=== PATIENT | male | born 1940 | race Caucasian/White ===

== ENCOUNTER 2020-07-18 06:45 | Outpatient (REF) | payer MEDICARE, OTHER, SELFPAY ==
[2020-07-18 07:23] LABS: Mean Platelet Volume 10.9 fL (9.4-12.4)
[2020-07-18 07:25] LABS: Basophils Percent Auto 0.5 % (0-2); Eosinophils Absolute Auto 0.2 X10*3/uL (0.0-0.4); Eosinophils Percent Auto 3.5 % (0-4); Hematocrit 47.2 % (42-52); Imm Gran Abs Auto 0.01 X10*3/uL (0.00-0.03); Imm Gran Pct Auto 0.2 % (0.0-0.4); Lymphocytes Absolute Auto 1.3 X10*3/uL (1.2-4.9); Lymphocytes Percent Auto 19.7 % (20-40); Mean Corpuscular HGB Conc 33.9 g/dl (31.0-36.0); Mean Corpuscular Hemoglobin 32.3 pg (27.0-33.0); Mean Corpuscular Volume 95.4 fL (80-98); Monocytes Absolute Auto 0.5 X10*3/uL (0.1-1.2); Monocytes Percent Auto 7.3 % (2-11); Neutrophils Absolute Auto 4.4 X10*3/uL (2.0-8.3); Neutrophils Percent Auto 68.8 % (45-73); Platelet Count 130 X10*3/uL (160-400); Red Blood Count 4.95 X10*6/uL (4.60-5.80); Red Cell Distribution Width 12.2 % (11.0-16.0); White Blood Count 6.3 X10*3/uL (4.8-10.8)
[2020-07-18 07:26] LABS: MANUAL DIFF FLAG NO
[2020-07-18 07:50] LABS: Alanine Aminotransferase 25 U/L (0-40); Albumin Level 4.4 g/dL (3.5-5.0); Alkaline Phosphatase 62 U/L (39-117); Anion Gap 12 (12-20); Aspartate Amino Transferase 24 U/L (5-37); Bilirubin Total 2.2 mg/dL (0.0-1.0); Blood Urea Nitrogen 28 mg/dL (9-16); Calcium 9.3 mg/dL (8.4-10.2); Carbon Dioxide 28 mmol/L (22-29); Chloride 103 mmol/L (96-108); Cholesterol 131 mg/dL; Estimated Glomerular Filt Rate 48; Glucose Random 175 mg/dL (60-115); HDL Cholesterol 39 mg/dL; LDL Cholesterol Calculated 66 mg/dl; Potassium 4.5 mmol/L (3.3-5.1); Sodium 138 mmol/L (135-145); Total Protein 6.7 g/dL (6.5-8.0); Triglycerides 131 mg/dL
[2020-07-18 07:52] LABS: Anion Gap 13 (12-20); Blood Urea Nitrogen 27 mg/dL (9-16); Calcium 9.3 mg/dL (8.4-10.2); Carbon Dioxide 26 mmol/L (22-29); Chloride 104 mmol/L (96-108); Estimated Glomerular Filt Rate 48; Phosphorus 3.5 mg/dL (2.7-4.5); Potassium 4.3 mmol/L (3.3-5.1); Sodium 139 mmol/L (135-145)
[2020-07-18 08:13] LABS: Free T4 (Free Thyroxine) 0.99 ng/dL (0.71-1.85); Thyroid Stimulating Hormone 1.09 uIU/mL (0.32-4.0)
[2020-07-18 08:16] LABS: Estimated Average Glucose 171 mg/dL; Hemoglobin A1c % 7.6 %
[2020-07-18 08:37] LABS: Renal w Reflex Lab Use Only Order verified
[2020-07-18 09:24] LABS: Folate > 20.0 ng/mL (> or = 4.0); Vitamin B12 784 pg/mL (200-900)
[2020-07-18 11:06] LABS: Creatinine Urine 121.95 mg/dL; Microalbum/Creatinine Ratio Ur 4.9 ug/mg cr
== END 2020-07-18 06:46 | disposition home or self-care (01) ==
LOC: HO.LAB 06:45
PROVIDERS: Absent Provider Internal Medicine Nephrology; PCP Internal Medicine; Visit Provider Internal Medicine
DX: E11.65 Type 2 diabetes mellitus with hyperglycemia (principal); K21.9 Gastro-esophageal reflux disease without esophagitis; E78.00 Pure hypercholesterolemia, unspecified; I12.9 Hypertensive chronic kidney disease with stage 1 through stage 4 chronic kidney disease, or unspecified chronic kidney disease; N18.30 Chronic kidney disease, stage 3 unspecified
CPT/HCPCS: 36415; 80051; 80053; 80061; 82043; 82310; 82565; 82607; 82746; 83036; 84100; 84439; 84443; 84520; 85025

== ENCOUNTER 2020-10-17 08:05 | Outpatient (REF) | payer MEDICARE, OTHER, SELFPAY ==
[2020-10-17 12:17] LABS: Prostate Specific Antigen 0.49 ng/mL (<0.05-4.0)
[2020-10-18 06:21] LABS: Lyme Abs Screen <0.90 index
== END 2020-10-17 08:06 | disposition home or self-care (01) ==
LOC: HO.HMGCLDS 08:05
PROVIDERS: PCP Internal Medicine; Referring Provider Nurse Practitioner Family; Visit Provider Hospitalist
DX: Z12.5 Encounter for screening for malignant neoplasm of prostate (principal); T14.8XXA Other injury of unspecified body region, initial encounter; W57.XXXA Bitten or stung by nonvenomous insect and other nonvenomous arthropods, initial encounter
CPT/HCPCS: 36415; 84153; 86617; 86618

== ENCOUNTER 2021-01-19 15:18 | Outpatient (REF) | payer MEDICARE, OTHER, SELFPAY ==
[2021-01-19 16:19] LABS: Anion Gap 13 (12-20); Blood Urea Nitrogen 25 mg/dL (9-16); Calcium 9.8 mg/dL (8.4-10.2); Carbon Dioxide 27 mmol/L (22-29); Chloride 105 mmol/L (96-108); Estimated Glomerular Filt Rate 53; Potassium 4.8 mmol/L (3.3-5.1); Sodium 140 mmol/L (135-145)
[2021-01-19 16:48] LABS: Total Protein Urine Random < 7 mg/dL (<12)
== END 2021-01-19 15:19 | disposition home or self-care (01) ==
LOC: HO.LAB 15:18
PROVIDERS: PCP Internal Medicine; Visit Provider Internal Medicine Nephrology
DX: I12.9 Hypertensive chronic kidney disease with stage 1 through stage 4 chronic kidney disease, or unspecified chronic kidney disease (principal); N18.31 Chronic kidney disease, stage 3a
CPT/HCPCS: 36415; 80051; 82310; 82565; 84156; 84520

== ENCOUNTER 2021-04-25 09:23 | Outpatient (REF) | payer MEDICARE, OTHER, SELFPAY ==
--- NOTE | ~2021-04-25 | XR_ITS ---
EXAMINATION: XR CHEST CLINICAL INFORMATION: Cough COMPARISON: April 20, 2009 TECHNIQUE: 2 views of the chest were obtained. FINDINGS: There is no evidence of acute parenchymal disease, pneumothorax, or pleural effusion. Heart normal size. No evidence of pulmonary edema. There is some minor lingular scarring as well as prominent left pericardial fat pad. Endothoracic fat deposition is present. XR/XR chest 2V IMPRESSION: No acute disease.
== END 2021-04-25 09:24 | disposition home or self-care (01) ==
LOC: HO.HMGCX 09:23
PROVIDERS: PCP Internal Medicine; Visit Provider Internal Medicine
DX: R05.9 Cough, unspecified (principal)
CPT/HCPCS: 71046

== ENCOUNTER 2021-07-17 07:31 | Outpatient (REF) | payer MEDICARE, OTHER, SELFPAY ==
[2021-07-17 11:33] LABS: MANUAL DIFF FLAG NO
[2021-07-17 11:43] LABS: Basophils Percent Auto 0.6 % (0-2); Eosinophils Absolute Auto 0.2 X10*3/uL (0.0-0.4); Eosinophils Percent Auto 3.7 % (0-4); Hematocrit 49.8 % (42.0-52.0); Hemoglobin 16.5 g/dl (14.0-18.0); Imm Gran Abs Auto 0.01 X10*3/uL (0.00-0.03); Imm Gran Pct Auto 0.2 % (0.0-0.4); Lymphocytes Absolute Auto 1.3 X10*3/uL (1.2-4.9); Lymphocytes Percent Auto 20.3 % (20-40); Mean Corpuscular HGB Conc 33.1 g/dl (31.0-36.0); Mean Corpuscular Volume 96.7 fL (80.0-98.0); Mean Platelet Volume 11.8 fL (9.4-12.4); Monocytes Absolute Auto 0.5 X10*3/uL (0.1-1.2); Monocytes Percent Auto 7.6 % (2-11); Neutrophils Absolute Auto 4.2 x10*3/uL (2.0-8.3); Neutrophils Percent Auto 67.6 % (45-73); Platelet Count 121 X10*3/uL (160-400); Red Blood Count 5.15 X10*6/uL (4.60-5.80); Red Cell Distribution Width 12.4 % (11.0-16.0); White Blood Count 6.2 X10*3/uL (4.8-10.8)
[2021-07-17 11:57] LABS: Cholesterol 130 mg/dL; HDL Cholesterol 36 mg/dL; LDL Cholesterol Calculated 64 mg/dl; Triglycerides 154 mg/dL
[2021-07-17 12:15] LABS: Estimated Average Glucose 163 mg/dL; Hemoglobin A1c % 7.3 %
[2021-07-17 12:21] LABS: Creatinine Urine 122.09 mg/dL; Free T4 (Free Thyroxine) 0.94 ng/dL (0.71-1.85); Microalbum/Creatinine Ratio Ur 23.7 ug/mg cr; Thyroid Stimulating Hormone 1.51 uIU/mL (0.32-4.0); Vitamin D 25-OH Total 29.2 ng/mL (>30)
[2021-07-17 12:26] LABS: Folate 19.1 ng/mL (> or = 4.0); Vitamin B12 606 pg/mL (200-900)
== END 2021-07-17 07:32 | disposition home or self-care (01) ==
LOC: HO.HMGCLDS 07:31
PROVIDERS: Visit Provider Internal Medicine
DX: E11.65 Type 2 diabetes mellitus with hyperglycemia (principal); N18.31 Chronic kidney disease, stage 3a; E78.00 Pure hypercholesterolemia, unspecified; I25.10 Atherosclerotic heart disease of native coronary artery without angina pectoris
CPT/HCPCS: 36415; 80061; 82043; 82306; 82607; 82746; 83036; 84439; 84443; 85025

== ENCOUNTER 2021-07-26 11:14 | Outpatient (REF) | payer MEDICARE, OTHER, SELFPAY ==
--- NOTE | ~2021-07-26 | XR_ITS ---
EXAMINATION: XR CHEST CLINICAL INFORMATION: History of Covid infection. Chest pain. COMPARISON: Previous chest x-ray April 2021 TECHNIQUE: 2 views of the chest were obtained. FINDINGS: The cardiac silhouette is slightly enlarged but stable. Hilar and mediastinal contours are unremarkable. The lungs are clear. There is no pleural effusion. There are degenerative changes of the spine. XR/XR chest 2V IMPRESSION: No evidence for acute disease in the chest.
== END 2021-07-26 11:15 | disposition home or self-care (01) ==
LOC: HO.XRAY 11:14
PROVIDERS: PCP Internal Medicine; Visit Provider Internal Medicine
DX: R07.9 Chest pain, unspecified (principal)
CPT/HCPCS: 71046

== ENCOUNTER 2021-08-15 07:51 | Day surgery (SDC) | payer MEDICARE, OTHER, SELFPAY ==
[2021-08-15 08:04] VITALS: BMI 28.7
[2021-08-15 08:21] VITALS: BP 130/59; PULSE 63; RESP 18; TEMP 36.8; O2SAT 98
[2021-08-15 08:27] LABS: Glucose, Whole Blood 156 mg/dL (60-115)
--- NOTE | 2021-08-15 09:51 | P.CONAN_ITS ---
HPI - Anesthesia Eval Consult details Narrative: 80 yo male patient for colonoscopy FORMERLY [facility], [facility] Active Problems Active Problems: All Active Problems (Updated 08/09/21 @ 13:00 by Kymberly Mata RN) Tick bite (Acute) Generalized anxiety disorder (Acute) Insomnia (Acute) Puncture wound (Acute) Cough (Acute) Chest pain (Acute). Denies recent chest pain Coronary artery disease (Acute) Type 2 diabetes mellitus with hyperglycemia (Acute) Chronic kidney disease (CKD) stage G3a/A1, moderately decreased glomerular filtration rate (GFR) between 45-59 mL/min/1.73 square meter and albuminuria creatinine ratio less than 30 mg/g (Acute) GERD (gastroesophageal reflux disease) (Acute) Hypercholesterolemia (Acute) Hypertension (Acute) Past Medical History Medical History Chronic kidney disease (CKD) stage G3a/A1, moderately decreased glomerular filtration rate (GFR) between 45-59 mL/min/1.73 square meter and albuminuria creatinine ratio less than 30 mg/g Coronary artery disease GERD (gastroesophageal reflux disease) Hypercholesterolemia Hypertension Meningioma Myocardial infarction On beta pedro at home Palpitations Pericarditis Pernicious anemia Tick bite of abdominal wall Type 2 diabetes mellitus with hyperglycemia Vitamin B12 deficiency Family History Family History Father CHF (congestive heart failure) CAD (coronary artery disease) CVD (cardiovascular disease) Mother CHF (congestive heart failure) CVD (cardiovascular disease) Diabetes Family history of problems with anesthesia: No Surgical History Surgical History History of colonoscopy History of heart artery stent History of inguinal hernia repair History of Problems with Anesthesia: No Social History Social History (Updated 10/16/20 @ 16:04 by ABRAHAM Ortega) Housing: House Alcohol intake: former Patient Tobacco Use Status: Never used Tobacco e-Cigarette/Vaping Use: Never Used Second Hand Smoke Exposure: No Use of substances other than those prescribed or required for medical reasons: No Are you DNR?: No Advance Directives: No Advance Directives Information Provided: Yes Recently lost weight without trying: No service: No Current occupational status: retired Cognitive needs: No Hearing needs: No Vision needs: Yes Meds Allergies Allergy/AdvReac Type Severity Reaction Status Date / Time lorazepam [From Ativan] Allergy Mild UNKNOWN Verified 07/24/21 15:01 Active Medications: Current Medications Sodium Biphosphate/Sodium Phosphate (Sodium Phosphate,[place]-Dibasic 133 Ml Enema) 133 ml CO ONCE PRN PRN Reason: Poor Colonoscopy Prep Results Home Medications Medication Instructions Recorded Confirmed Last Taken Type azelaic acid 15 % topical gel 1 applic TOPICAL BID 03/07/20 08/09/21 Unknown History blood sugar diagnostic #10 ea 03/07/20 07/24/21 Unknown History blood-glucose meter #1 ea 03/07/20 07/24/21 Unknown History cyanocobalamin (vitamin B-12) 1,000 mcg PO DAILY 03/07/20 08/09/21 Unknown History 1,000 mcg tablet aspirin 81 mg tablet,delayed 81 mg PO DAILY 05/01/20 08/15/21 08/13/21 History release (Adult Low Dose Aspirin) omeprazole 40 mg capsule,delayed 40 mg PO DAILY 05/01/20 08/15/21 08/15/21 History release Exam Exam Date and Time: August 15, 2021 0951 Height,Weight and Vital Signs: Height 5 ft 10 in Weight 90.718 kg Last Vital Signs Temp 98.2 F 08/15/21 08:21 Pulse 63 08/15/21 08:21 Resp 18 08/15/21 08:21 BP 130/59 L 08/15/21 08:21 Pulse Ox 98 08/15/21 08:21 Pertinent Lab Results Pertinent Lab Results: Laboratory Tests 08/15/21 08:13 POC Glucose 156 H Airway Mallampati Class: III TM Dist: >3cm Neck ROM: Full Loose/Missing/Broken Teeth: No (Crowns intact ) Heart: RRR Lungs: CTAB Assessment and Plan Assessment Anesthesia Assessment: Anesthesia Plan Discussed and Chart Reviewed Final Anesthetic Review Family History of Problems with Anesthesia: No History of Problems with Anesthesia: No NPO: Yes ASA Class: III Final Preanesthetic Review: No Changes in Pt Med Stat, Meds/Allgs Chart Reviewed, Consent Obtained/Reviewed and Anes Risks/Benef Reviewed Patient Risk: Intermediate Procedure Risk: Low Assessment/Block/Sedation in SS: Assess/Block/Sedation-SS Anesthetic Plan Anesthetic Plan: MAC: Disposition: Standard PACU
[2021-08-15] MEDS: Lactated Ringers 1,000 ML 100 ML IVCONT (09:52)
[2021-08-15 10:53] VITALS: BP 135/68; PULSE 72; RESP 20; TEMP 36.8; O2SAT 95
--- NOTE | 2021-08-15 10:55 | PM.OP ---
Brief Operative Note Date of Service: 08/15/21 Pre-op diagnosis: Screening Post-op diagnosis: other (Colon polyps) Procedure: Colonoscopy to the cecum and TI with hot snare polypectomy x 5 and placement of Resolution clips x 5 Surgeon: Jorge L Funk Anesthesia: MAC Was an Cutting Supervisor used for this Procedure?: No Estimated blood loss (mL): 0 Pathology: other (A. Ascending colon polyps B. Transverse colon polyp C. Polyp at 30cm D. Polyp at 20cm) Condition: stable Disposition: PACU
[2021-08-15 11:08] VITALS: BP 146/75; PULSE 70; RESP 20
[2021-08-15 11:35] VITALS: BP 129/69; PULSE 68; RESP 20; TEMP 36.4; O2SAT 98
--- NOTE | 2021-08-15 21:23 | OP_ITS ---
SURGEON: Jorge L Funk MD INDICATIONS: The patient presents for evaluation of colorectal cancer screening and personal history of tubular adenoma of the colon. Full consent was obtained from him for this, including risks of bleeding and perforation. PREOPERATIVE DIAGNOSIS: POSTOPERATIVE DIAGNOSIS: PROCEDURE PERFORMED: Colonoscopy to the cecum and terminal ileum with multiple hot snare polypectomies and placement of Resolution Clips. ESTIMATED BLOOD LOSS: COMPLICATIONS: ANESTHESIA: Monitored anesthesia care. ASSISTANTS: SPECIMENS: PREOPERATIVE DIAGNOSES: Colorectal cancer screening and personal history of tubular adenoma of the colon. POSTOPERATIVE DIAGNOSES: Colorectal cancer screening and personal history of tubular adenoma of the colon, colon polyps, diverticulosis, and internal hemorrhoids. DESCRIPTION OF PROCEDURE: The patient was placed in the left lateral decubitus position. The digital rectal exam revealed no abnormalities. The Olympus video pediatric colonoscope was entered into the rectum and advanced easily to the cecum. Once in the cecum, I did identify normal-appearing cecal pouch with appendiceal orifice and a normal-appearing ileocecal valve. The terminal ileum was cannulated and appeared normal. Scope was withdrawn back from the colon. The entire cecum and ileocecal valve appeared normal. The scope was then slowly withdrawn assessing all mucosal surfaces carefully. Preparation was excellent. In the proximal ascending colon were 2 approximately 6 to 8 mm polyps, which were each removed by hot snare polypectomy and recovered by suction. The polypectomy sites appeared clean, without any sign of residual polyp nor bleeding. A single Resolution Clip was placed on each polypectomy site with good placement and deployment, and good hemostasis. In the transverse colon was an approximately 6 to 8 mm polyp, which was removed by hot snare polypectomy and recovered by suction. The polypectomy site appeared clean, without any sign of residual polyp nor bleeding. A single Resolution Clip was placed with good deployment and good hemostasis. At 30 cm was an approximately 6 to 8 mm polyp, which was removed by hot snare polypectomy and recovered by suction. The polypectomy site appeared clean, without any sign of residual polyp nor bleeding. A single Resolution Clip was placed with good deployment and good hemostasis. At 20 cm was an approximately 1 cm polyp, which was removed by hot snare polypectomy and then recovered by withdrawing it on the tip of the scope. The scope was readvanced back to the polypectomy site, which appeared clean, without any sign of residual polyp nor bleeding. A single Resolution Clip was placed with good deployment and good hemostasis. I did not visualize any other polyps, colitis, or angiodysplasia. There was a moderate amount of sigmoid diverticulosis. In the rectum, scope was retroflexed visualizing internal hemorrhoids, but no other pathology. The rectal mucosa appeared normal. The scope was straightened and withdrawn from the patient. He tolerated the procedure well and was returned to recovery area in stable condition. IMPRESSION: 1. Colon polyps, status post hot snare polypectomy and placement of Resolution Clips. 2. Diverticulosis. 3. Internal hemorrhoids. PLAN: The results of the pathology will be checked. Given his age, I do not think he need any further screening colonoscopies as he would be in his 80s by the time his next screening colonoscopy would be due. He was advised to resume his aspirin tomorrow. This has been discussed with his . He was also advised not to use any NSAIDs for at least a week. MD JEFERSON Gupta/GOLDIE / [id number] MTDD
== END 2021-08-15 11:55 | disposition home or self-care (01) ==
PROVIDERS: PCP Internal Medicine; Visit Provider Internal Medicine
PROC: 0DJD8ZZ Inspection of Lower Intestinal Tract, Via Natural or Artificial Opening Endoscopic (ICD-10-PCS; CPT 45378; principal; 2021-08-15 09:10)
DX: Z12.11 Encounter for screening for malignant neoplasm of colon (principal); Z86.010 Personal history of colon polyps; D12.2 Benign neoplasm of ascending colon; D12.3 Benign neoplasm of transverse colon; D12.5 Benign neoplasm of sigmoid colon; K57.30 Diverticulosis of large intestine without perforation or abscess without bleeding; K64.8 Other hemorrhoids; K21.9 Gastro-esophageal reflux disease without esophagitis; E78.5 Hyperlipidemia, unspecified; I25.10 Atherosclerotic heart disease of native coronary artery without angina pectoris; Z98.61 Coronary angioplasty status; E53.8 Deficiency of other specified B group vitamins; E11.22 Type 2 diabetes mellitus with diabetic chronic kidney disease; I12.9 Hypertensive chronic kidney disease with stage 1 through stage 4 chronic kidney disease, or unspecified chronic kidney disease; N18.31 Chronic kidney disease, stage 3a; Z79.84 Long term (current) use of oral hypoglycemic drugs; Z79.82 Long term (current) use of aspirin; Z79.899 Other long term (current) drug therapy
CPT/HCPCS: 45385; 82947; 88305

== ENCOUNTER 2021-10-25 14:16 | Outpatient (REF) | payer MEDICARE, OTHER, SELFPAY ==
[2021-10-25 16:44] LABS: Hematocrit 32.6 % (42.0-52.0); Hemoglobin 10.8 g/dl (14.0-18.0); Mean Corpuscular HGB Conc 33.1 g/dl (31.0-36.0); Mean Corpuscular Volume 96.4 fL (80.0-98.0); Mean Platelet Volume 11.2 fL (9.4-12.4); Platelet Count 163 X10*3/uL (160-400); Red Blood Count 3.38 X10*6/uL (4.60-5.80); Red Cell Distribution Width 13.4 % (11.0-16.0); White Blood Count 4.9 X10*3/uL (4.8-10.8)
[2021-10-25 16:56] LABS: Alanine Aminotransferase 84 U/L (0-40); Alkaline Phosphatase 242 U/L (39-117); Anion Gap 11 (12-20); Aspartate Amino Transferase 55 U/L (5-37); Bilirubin Direct 0.9 mg/dL (0.0-0.5); Bilirubin Total 1.8 mg/dL (0.0-1.0); Blood Urea Nitrogen 18 mg/dL (9-16); Calcium 8.9 mg/dL (8.4-10.2); Carbon Dioxide 26 mmol/L (22-29); Chloride 108 mmol/L (96-108); Estimated Glomerular Filt Rate > 60; Glucose Random 183 mg/dL (60-115); Potassium 4.7 mmol/L (3.3-5.1); Sodium 140 mmol/L (135-145); Total Protein 6.3 g/dL (6.5-8.0)
== END 2021-10-25 14:17 | disposition home or self-care (01) ==
LOC: HO.HMGCLDS 14:16
PROVIDERS: PCP Internal Medicine; Visit Provider Internal Medicine
DX: K75.9 Inflammatory liver disease, unspecified (principal)
CPT/HCPCS: 36415; 80048; 80076; 85027

== ENCOUNTER 2021-12-19 08:00 | Outpatient (REF) | payer MEDICARE, OTHER, SELFPAY ==
[2021-12-19 11:29] LABS: Anion Gap 13 (12-20); Blood Urea Nitrogen 24 mg/dL (9-16); Calcium 8.7 mg/dL (8.4-10.2); Carbon Dioxide 23 mmol/L (22-29); Chloride 108 mmol/L (96-108); Estimated Glomerular Filt Rate > 60; Potassium 4.3 mmol/L (3.3-5.1); Sodium 140 mmol/L (135-145)
[2021-12-19 12:07] LABS: Creatinine Urine 130.76 mg/dL; Protein/Creatinine Ratio, Ur 0.06 (<0.2); Total Protein Urine Random 8 mg/dL (<12)
== END 2021-12-19 08:01 | disposition home or self-care (01) ==
LOC: HO.HMGCLDS 08:00
PROVIDERS: PCP Internal Medicine; Visit Provider Internal Medicine Nephrology
DX: N18.31 Chronic kidney disease, stage 3a (principal)
CPT/HCPCS: 36415; 80051; 82310; 82565; 84156; 84520

== ENCOUNTER 2021-12-21 09:45 | Outpatient (REF) | payer MEDICARE, OTHER, SELFPAY ==
--- NOTE | ~2021-12-21 | US_ITS ---
EXAMINATION: US ABDOMEN COMPLETE CLINICAL INFORMATION: Other specified abnormal findings of blood chemistry. COMPARISON: Renal ultrasound 11/29/2014. TECHNIQUE: Real-time imaging of the abdominal viscera. Exam is limited due to patient body habitus. FINDINGS: PANCREAS: Not visualized. ABDOMINAL AORTA: Not well visualized. INFERIOR VENA CAVA: Not well visualized. LIVER: Normal. The liver is normal in size. The liver contour is normal. Parenchymal echogenicity is normal. No focal hepatic lesion. There is no intrahepatic biliary duct dilatation seen. GALLBLADDER: Surgically absent. COMMON BILE DUCT: Normal in caliber measuring 0.9 cm in diameter. RIGHT KIDNEY: Normal. No hydronephrosis. No renal calculi or focal parenchymal lesions. The kidney measures 12.1 cm in maximum dimension. LEFT KIDNEY: There is a 1.2 x 0.8 x 1.1 cm cyst in the midpole. No hydronephrosis or renal calculi. The kidney measures 13.0 cm in maximum dimension. SPLEEN: Upper normal in size. The spleen measures 13.3 cm in maximum dimension. FREE FLUID: None. US/US abdomen complete IMPRESSION: Limited exam. The pancreas, aorta and IVC are not well visualized. Small left renal cyst.
== END 2021-12-21 09:46 | disposition home or self-care (01) ==
LOC: HO.US 09:45
PROVIDERS: Visit Provider Internal Medicine
DX: R74.01 Elevation of levels of liver transaminase levels (principal); R79.89 Other specified abnormal findings of blood chemistry
CPT/HCPCS: 76700

== ENCOUNTER 2022-02-11 08:17 | Outpatient (REF) | payer MEDICARE, OTHER, SELFPAY ==
[2022-02-11 11:17] LABS: MANUAL DIFF FLAG NO
[2022-02-11 11:35] LABS: Basophils Percent Auto 0.7 % (0-2); Eosinophils Absolute Auto 0.3 X10*3/uL (0.0-0.4); Eosinophils Percent Auto 5.2 % (0-4); Hematocrit 40.9 % (42.0-52.0); Hemoglobin 12.7 g/dl (14.0-18.0); Imm Gran Abs Auto 0.02 X10*3/uL (0.00-0.03); Imm Gran Pct Auto 0.3 % (0.0-0.4); Immature Retic Fraction 13.2 % (2.3-13.4); Lymphocytes Absolute Auto 1.1 X10*3/uL (1.2-4.9); Lymphocytes Percent Auto 19.7 % (20-40); Mean Corpuscular HGB Conc 31.1 g/dl (31.0-36.0); Mean Corpuscular Hemoglobin 26.5 pg (27.0-33.0); Mean Corpuscular Volume 85.4 fL (80.0-98.0); Mean Platelet Volume 11.7 fL (9.4-12.4); Monocytes Absolute Auto 0.4 X10*3/uL (0.1-1.2); Neutrophils Absolute Auto 3.9 x10*3/uL (2.0-8.3); Neutrophils Percent Auto 67.1 % (45-73); Platelet Count 112 X10*3/uL (160-400); Red Blood Count 4.79 X10*6/uL (4.60-5.80); Red Cell Distribution Width 16.1 % (11.0-16.0); Retic HGB Equivalent 32.5 pg (30.0-35.0); Reticulocyte Percent 1.1 % (0.5-1.8); Reticulocytes Absolute 0.053 X10*6/uL (0.026-0.095); White Blood Count 5.7 X10*3/uL (4.8-10.8)
[2022-02-11 12:12] LABS: Alanine Aminotransferase 24 U/L (0-40); Albumin Level 4.2 g/dL (3.5-5.0); Alkaline Phosphatase 82 U/L (39-117); Aspartate Amino Transferase 23 U/L (5-37); Bilirubin Direct 0.6 mg/dL (0.0-0.5); Bilirubin Total 1.7 mg/dL (0.0-1.0); Ferritin 9 ng/mL (20-250); Iron 36 mcg/dL (45-160); Percent Iron Saturation 10 % (15-50); Total Iron Binding Capacity 374 mcg/dL (228-428); Total Protein 6.5 g/dL (6.5-8.0); Unsaturated Iron Binding 338 ug/dL
[2022-02-11 12:46] LABS: Folate 19.9 ng/mL (> or = 4.0); Vitamin B12 592 pg/mL (200-900)
== END 2022-02-11 08:18 | disposition home or self-care (01) ==
LOC: HO.HMGCLDS 08:17
PROVIDERS: PCP Internal Medicine; Visit Provider Internal Medicine
DX: R79.89 Other specified abnormal findings of blood chemistry (principal); Z90.49 Acquired absence of other specified parts of digestive tract
CPT/HCPCS: 36415; 80076; 82607; 82728; 82746; 83540; 85025; 85045

== ENCOUNTER 2022-05-22 06:47 | Outpatient (REF) | payer MEDICARE, OTHER, SELFPAY ==
[2022-05-22 11:24] LABS: MANUAL DIFF FLAG NO
[2022-05-22 11:43] LABS: Basophils Absolute Auto 0.1 X10*3/uL (0.0-0.2); Basophils Percent Auto 0.8 % (0-2); Eosinophils Absolute Auto 0.3 X10*3/uL (0.0-0.4); Eosinophils Percent Auto 4.4 % (0-4); Hematocrit 53.1 % (42.0-52.0); Hemoglobin 17.7 g/dl (14.0-18.0); Imm Gran Abs Auto 0.01 X10*3/uL (0.00-0.03); Imm Gran Pct Auto 0.2 % (0.0-0.4); Immature Retic Fraction 9.8 % (2.3-13.4); Lymphocytes Absolute Auto 1.1 X10*3/uL (1.2-4.9); Lymphocytes Percent Auto 18.3 % (20-40); Mean Corpuscular HGB Conc 33.3 g/dl (31.0-36.0); Mean Corpuscular Hemoglobin 32.1 pg (27.0-33.0); Mean Corpuscular Volume 96.2 fL (80.0-98.0); Mean Platelet Volume 11.5 fL (9.4-12.4); Monocytes Absolute Auto 0.4 X10*3/uL (0.1-1.2); Neutrophils Absolute Auto 4.3 x10*3/uL (2.0-8.3); Neutrophils Percent Auto 69.3 % (45-73); Platelet Count 123 X10*3/uL (160-400); Red Blood Count 5.52 X10*6/uL (4.60-5.80); Red Cell Distribution Width 14.5 % (11.0-16.0); Retic HGB Equivalent 38.5 pg (30.0-35.0); Reticulocyte Percent 1.5 % (0.5-1.8); Reticulocytes Absolute 0.082 X10*6/uL (0.026-0.095); White Blood Count 6.2 X10*3/uL (4.8-10.8)
[2022-05-22 12:00] LABS: Estimated Average Glucose 157 mg/dL; Hemoglobin A1c % 7.1 %
[2022-05-22 12:06] LABS: Alanine Aminotransferase 38 U/L (0-40); Albumin Level 4.2 g/dL (3.5-5.0); Alkaline Phosphatase 87 U/L (39-117); Anion Gap 13 (12-20); Aspartate Amino Transferase 32 U/L (5-37); Bilirubin Total 2.5 mg/dL (0.0-1.0); Blood Urea Nitrogen 28 mg/dL (9-16); Calcium 9.8 mg/dL (8.4-10.2); Carbon Dioxide 30 mmol/L (22-29); Chloride 106 mmol/L (96-108); Cholesterol 140 mg/dL; Estimated Glomerular Filt Rate 56; Glucose Random 178 mg/dL (60-115); HDL Cholesterol 35 mg/dL; Iron 84 mcg/dL (45-160); LDL Cholesterol Calculated 58 mg/dl; Percent Iron Saturation 29 % (15-50); Potassium 4.5 mmol/L (3.3-5.1); Sodium 144 mmol/L (135-145); Total Iron Binding Capacity 285 mcg/dL (228-428); Total Protein 6.4 g/dL (6.5-8.0); Triglycerides 239 mg/dL; Unsaturated Iron Binding 201 ug/dL
[2022-05-22 12:26] LABS: Creatinine Urine 59.85 mg/dL; Microalbum/Creatinine Ratio Ur 11.6 ug/mg cr
[2022-05-22 12:39] LABS: Ferritin 28 ng/mL (20-250); Folate 17.8 ng/mL (> or = 4.0); Free T4 (Free Thyroxine) 0.93 ng/dL (0.71-1.85); Thyroid Stimulating Hormone 1.17 uIU/mL (0.32-4.0); Vitamin B12 582 pg/mL (200-900)
== END 2022-05-22 06:48 | disposition home or self-care (01) ==
LOC: HO.HMGCLDS 06:47
PROVIDERS: PCP Internal Medicine; Visit Provider Internal Medicine
DX: D50.9 Iron deficiency anemia, unspecified (principal); K21.9 Gastro-esophageal reflux disease without esophagitis; E78.00 Pure hypercholesterolemia, unspecified; E11.65 Type 2 diabetes mellitus with hyperglycemia
CPT/HCPCS: 36415; 80053; 80061; 82043; 82607; 82728; 82746; 83036; 83540; 84439; 84443; 85025; 85045

== ENCOUNTER 2022-06-26 06:10 | Outpatient (REF) | payer MEDICARE, OTHER, SELFPAY ==
[2022-06-26 12:01] LABS: Anion Gap 10 (12-20); Blood Urea Nitrogen 24 mg/dL (9-16); Calcium 8.9 mg/dL (8.4-10.2); Carbon Dioxide 30 mmol/L (22-29); Chloride 107 mmol/L (96-108); Estimated Glomerular Filt Rate 54; Potassium 4.2 mmol/L (3.3-5.1); Sodium 143 mmol/L (135-145)
== END 2022-06-26 06:11 | disposition home or self-care (01) ==
LOC: HO.HMGCLDS 06:10
PROVIDERS: PCP Internal Medicine; Visit Provider Internal Medicine Nephrology
DX: I12.9 Hypertensive chronic kidney disease with stage 1 through stage 4 chronic kidney disease, or unspecified chronic kidney disease (principal); N18.31 Chronic kidney disease, stage 3a
CPT/HCPCS: 36415; 80051; 82310; 82565; 84520

== ENCOUNTER 2022-08-09 12:05 | Outpatient (REF) | payer MEDICARE, OTHER, SELFPAY ==
--- NOTE | ~2022-08-09 | CT_ITS ---
EXAMINATION: CT ABDOMEN AND PELVIS WITHOUT CONTRAST CLINICAL INFORMATION: Left lower quadrant pain. Status post left inguinal hernia repair with Prolene mesh. COMPARISON: None available. TECHNIQUE: Multidetector volumetric imaging was performed from the superior aspect of the liver through the pubic symphysis. Sagittal and coronal reformatted images were obtained on the technologist's workstation. This CT examination was performed using dose optimization techniques as appropriate, variously including the following: *Automated exposure control *Adjustment of mA and/or kV according to patient size (this includes techniques or standardized protocols for targeted exams where dose is matched to indication/reason for exam; i.e. extremities or head) *Use of iterative reconstruction technique DLP: 656 mGy-cm FINDINGS: LUNG BASES: The visualized lung bases are unremarkable. There is mild coronary artery calcification present. The heart size is normal. LIVER, GALLBLADDER, AND BILIARY TREE: The liver is normal in size, shape, and attenuation. No focal hepatic lesion or biliary ductal dilatation is present. The gallbladder is unremarkable with no evidence of radiopaque gallstones, gallbladder wall thickening, or obvious pericholecystic inflammatory changes. PANCREAS: Unremarkable. SPLEEN: Unremarkable. ADRENAL GLANDS: Unremarkable. KIDNEYS AND URETERS: The kidneys are normal in size, shape, and attenuation. There is a 2 mm nonobstructive radiopaque calculi lower pole left kidney. No additional radiopaque calculi seen. There is no caliectasis or hydronephrosis. There is mild bilateral perinephric stranding. BLADDER: Unremarkable. GASTROINTESTINAL TRACT: There is scattered stool, gas and diverticula seen throughout the colon without distention. There is nonspecific mural thickening involving a loop of small bowel in the left midabdomen. It is best visualized on sagittal image 62/6 on axial image 35/3 through 44/3. ABDOMINAL WALL: No significant hernia is appreciated. LYMPH NODES: Normal. VASCULAR: There is atherosclerotic calcification of abdominal aorta. PELVIC VISCERA: No pelvic mass, free fluid or free air. No abnormal pelvic lymph nodes. There are bilateral inguinal mesh from hernia repair. No recurrent hernia seen at this time. OSSEOUS STRUCTURES: No aggressive lytic or sclerotic process seen. The paravertebral soft tissues are normal. CT/CT abdomen pelvis wo IV con IMPRESSION: 1. Bilateral inguinal hernia repair with mesh. No recurrent hernia seen. 2. Nonspecific mural thickening involving a loop of small bowel in the left midabdomen. 3. Colonic diverticulosis without diverticulitis. 4. Nonobstructive 2 mm radiopaque calculi lower pole left kidney. Fleischner guidelines were followed.
[2022-08-09] MEDS: Barium Sulfate Oral (Mocha) 450 ML ORAL.SUSP 900 ML PO (15:01)
== END 2022-08-09 12:06 | disposition home or self-care (01) ==
LOC: HO.CT 12:05
PROVIDERS: PCP Internal Medicine; Visit Provider Internal Medicine
DX: R10.32 Left lower quadrant pain (principal)
CPT/HCPCS: 74176

== ENCOUNTER 2022-11-08 09:02 | Outpatient (AMB) | payer MEDICARE, OTHER, SELFPAY ==
--- NOTE | 2022-11-08 09:19 | AM.OFFWIN_ITS ---
Intake Vital Signs 11/08/22 09:22 BP 110/64 Blood Pressure Location Lt brachial Position Sitting Pulse 66 Pulse Source Pulse Oximeter Temp 98.0 F Temp Source Temporal Artery Scan Pulse Oximetry (%) 96 Oxygen Delivery Method Room Air Intake Visit Reasons: EP rash? shingles? (he) Intake Note: Patient here for possible shingles, groin area and shoulders which has been present for about 3 days. Pt states he has had shingles in the past. Patient Tobacco Use Status: Never used Tobacco Allergies lorazepam [From Ativan] Allergy (Mild, Verified 11/08/22 09:22) UNKNOWN Do you need a note to return to daycare/school/sports/work: No HPI EP rash? shingles? (he) HPI Details 82-year-old male presents to the office for a sick visit. Would like to get the rash on his body examined. [facility] Medical History Anemia Chronic kidney disease (CKD) stage G3a/A1, moderately decreased glomerular filtration rate (GFR) between 45-59 mL/min/1.73 square meter and albuminuria creatinine ratio less than 30 mg/g Coronary artery disease GERD (gastroesophageal reflux disease) Hypercholesterolemia Hypertension Meningioma Myocardial infarction On beta pedro at home Palpitations Pericarditis Pernicious anemia Tick bite of abdominal wall Type 2 diabetes mellitus with hyperglycemia Vitamin B12 deficiency Surgical History History of colonoscopy History of heart artery stent History of inguinal hernia repair Family History Father CHF (congestive heart failure) CAD (coronary artery disease) CVD (cardiovascular disease) Mother CHF (congestive heart failure) CVD (cardiovascular disease) Diabetes Social History Housing: House Alcohol intake: former Patient Tobacco Use Status: Never used Tobacco e-Cigarette/Vaping Use: Never Used Second Hand Smoke Exposure: No service: No Current occupational status: retired Cognitive needs: No Hearing needs: No Vision needs: Yes Physical Exam Vital Signs: Last Vital Signs Temp 98.0 F 11/08/22 09:22 Pulse 66 11/08/22 09:22 BP 110/64 11/08/22 09:22 Pulse Ox 96 11/08/22 09:22 Oxygen Delivery Method Room Air 11/08/22 09:22 Skin Other: Erythematous papules over the right chest over the left shoulder and in the groin. The papule under the right chest is slightly tender. Assessment & Plan Assessment & Plan (1) Rash: Code(s): R21 - Rash and other nonspecific skin eruption Plan: Patient was reassured that the rash does not represent herpes zoster. Self- limiting illness. Coding Level of Care Code Est Pt Level 3 (68225) Diagnoses Rash R21
[2022-11-08 09:22] VITALS: BP 110/64; PULSE 66; TEMP 36.7; O2SAT 96
== END 2022-11-08 10:37 | disposition home or self-care (01) ==
PROVIDERS: PCP Internal Medicine; Visit Provider Internal Medicine
DX: R21 Rash and other nonspecific skin eruption (principal)
CPT/HCPCS: 99213

== ENCOUNTER 2022-12-25 13:07 | Outpatient (AMB) | payer MEDICARE, OTHER, SELFPAY ==
--- NOTE | 2022-12-25 13:10 | MHC.PC.OV ---
Vital Signs 12/25/22 13:11 Height 5 ft 10 in Weight 200 lb BMI 28.7 BP 118/62 Blood Pressure Location Lt brachial Position Sitting Pulse 72 Pulse Source Pulse Oximeter Pulse Oximetry (%) 98 Oxygen Delivery Method Room Air Intake Visit Reasons: DM Allergies lorazepam [From Ativan] Allergy (Mild, Verified 12/25/22 13:11) UNKNOWN Medication List - Last Reconciled 12/25/22 by Hiram Monge MD ascorbic acid (vitamin C) 500 mg PO DAILY aspirin (Adult Low Dose Aspirin) 81 mg PO DAILY azelaic acid 15% 1 appl topical BID blood sugar diagnostic (Customized [employer] Ultra Test strips) As directed check the blood sugar once a day clotrimazole 1% 1 appl topical BID 4 weeks cyanocobalamin (vitamin B-12) 1,000 mcg PO DAILY cyclobenzaprine 10 mg PO BEDTIME empagliflozin 25 mg PO DAILY 30 days ferrous sulfate 325 mg PO DAILY 90 days folic acid 1 mg PO DAILY glipizide 5 mg PO BID 90 days hydrocortisone 1% 1 appl topical BID PRN lancets ([employer] Delica Plus Lancet) 33 gauge miscellaneous DAILY 90 days lisinopril 2.5 mg PO DAILY metoprolol tartrate 100 mg PO BID omeprazole 40 mg PO DAILY rosuvastatin 40 mg PO DAILY 90 days Tobacco use date assessed: 07/31/22 Fall risk assessment: 1 Fall in past year Last assessed Fall Risk: 12/25/22 Dental Screening Dental Screen Date: 12/25/22 Did you have a dental visit in the last 12 months?: No Did you have a dental problem in the last 6 months where you did not have access to dental care?: No Was dental information given to patient?: No HPI DM HPI Details 82-year-old overweight male with diabetes mellitus chronic kidney disease GERD hypercholesterolemia coronary artery disease hypertension generalized anxiety disorder coming in for follow-up. Last seen in August 2022. Review of the notes patient was seen in the [facility] for a groin and shoulder rash but was reassured regarding concerns about shingles. 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 Patient's last complete blood work was done in May 2022 with an LDL of 58 hemoglobin A1c of 7.5 was done in August 2022 [facility] Medical History Anemia Chronic kidney disease (CKD) stage G3a/A1, moderately decreased glomerular filtration rate (GFR) between 45-59 mL/min/1.73 square meter and albuminuria creatinine ratio less than 30 mg/g Coronary artery disease GERD (gastroesophageal reflux disease) Hypercholesterolemia Hypertension Meningioma Myocardial infarction On beta pedro at home Palpitations Pericarditis Pernicious anemia Tick bite of abdominal wall Type 2 diabetes mellitus with hyperglycemia Vitamin B12 deficiency Surgical History History of colonoscopy History of heart artery stent History of inguinal hernia repair Family History Father CHF (congestive heart failure) CAD (coronary artery disease) CVD (cardiovascular disease) Mother CHF (congestive heart failure) CVD (cardiovascular disease) Diabetes Social History Housing: House Alcohol intake: former Patient Tobacco Use Status: Never used Tobacco e-Cigarette/Vaping Use: Never Used Second Hand Smoke Exposure: No service: No Current occupational status: retired Cognitive needs: No Hearing needs: No Vision needs: Yes Questionnaire Thrive Questionnaire Date Thrive assessed: 05/29/22 AUDIT C Alcohol Use Questionnaire (AUDIT-C) 1. How often do you have a drink containing alcohol?: Never 3. How often do you have six or more drinks on one occasion?: Never Total Score: 0 LIANNA-7 AMB Questionnaire LIANNA-7 Date LIANNA - 7 assessed: 05/29/22 Source: Developed by Drs. Jorge L Reyes, Yesi Weldon, Jose De Jesus Noble and colleagues, with an educational linus from [employer]. Physical exam (Primary Care) Vital Signs: Last Vital Signs Pulse 72 12/25/22 13:11 BP 118/62 12/25/22 13:11 Pulse Ox 98 12/25/22 13:11 Oxygen Delivery Method Room Air 12/25/22 13:11 BMI result Body Mass Index 28.7 Tobacco/Smoking Status: Tobacco use Status Tobacco use date assessed 07/31/22 12/25/22 13:12 Patient Tobacco Use Status Never used Tobacco 12/25/22 13:12 e-Cigarette/Vaping Use Never Used 12/25/22 13:12 Thrive Assessment: Date of Thrive Assessment Date Thrive assessed 05/29/22 12/25/22 13:12 Const General: alert; No acute distress Eyes Conjunctivae: conjunctivae normal Resp Auscultation: clear to auscultation bilaterally Cardio Rate: regular rate Rhythm: regular rhythm GI Inspection: Yes normal to inspection Extrem General: Yes normal to inspection and No edema Assessment and Plan Assessment & Plan (1) Type 2 diabetes mellitus with hyperglycemia: Comment: EYE and LASIK Code(s): E11.65 - Type 2 diabetes mellitus with hyperglycemia Qualifiers: Diabetes mellitus terminal manager insulin use: without alf use Qualified Code(s): E11.65 - Type 2 diabetes mellitus with hyperglycemia Plan: Decrease the amount of carbohydrate intake, pasta, bread, rice and potatoes are all sugar and that is aside from all the sweet stuff, remember that fruits are good but they are Sweet also. Hemoglobin A1c goal of less than 7.0. Patient is presently on glipizide 5 mg twice a day Jardiance 25 mg once a day (2) Chronic kidney disease (CKD) stage G3a/A1, moderately decreased glomerular filtration rate (GFR) between 45-59 mL/min/1.73 square meter and albuminuria creatinine ratio less than 30 mg/g: Comment: Sees Dr. Vicente Code(s): N18.31 - Chronic kidney disease, stage 3a Plan: Keep well hydrated avoid NSAIDs control blood pressure (3) GERD (gastroesophageal reflux disease): Code(s): K21.9 - Gastro-esophageal reflux disease without esophagitis Qualifiers: Esophagitis presence: without esophagitis Qualified Code(s): K21.9 - Gastro-esophageal reflux disease without esophagitis Plan: Avoid the foods that causes that usually spicy foods, tomato products, juices, coffee, soda and foods that your sensitive to. After eating do not lie down, allow 3-4 hours before in lie down. And keep the head of bed above 30 degrees to avoid the acid from going up. (4) Hypercholesterolemia: Code(s): E78.00 - Pure hypercholesterolemia, unspecified Plan: Avoid fried foods, chicken skin, eggs, butter margarine, pastries and meat. Be it pork or beef they have a lot of cholesterol LDL goal of less than 70 patient is on rosuvastatin 40 mg once a day blood work done May 2022 (5) Hypertension: Code(s): I10 - Essential (primary) hypertension Qualifiers: Hypertension type: essential hypertension Qualified Code(s): I10 - Essential (primary) hypertension Plan: Continue with blood pressure medication. Decrease salt intake and exercise continue with metoprolol 100 mg twice a day lisinopril 2.5 mg once a day (6) Coronary artery disease: Comment: PCI of LAD January 2008 MRI January 2008 repeat drug-eluting stent LAD August 2012 , positive stress test April 2020 medical management Code(s): I25.10 - Atherosclerotic heart disease of [place] coronary artery without angina pectoris Qualifiers: Coronary Disease-Associated Artery/Lesion type: [place] artery [place] vs. transplanted heart: [place] heart Associated angina: without angina Qualified Code(s): I25.10 - Atherosclerotic heart disease of [place] coronary artery without angina pectoris Plan: Control the cholesterol, weight, blood pressure, diabetes (7) Generalized anxiety disorder: Code(s): F41.1 - Generalized anxiety disorder Plan: Stable Orders: Orders Vitamin B12 and Folate 5 Months E11.65 - Type 2 diabetes mellitus with hyperglycemia B Type Natriuretic Peptide 5 Months E11.65 - Type 2 diabetes mellitus with hyperglycemia Comprehensive Met. Panel 5 Months E11.65 - Type 2 diabetes mellitus with hyperglycemia Hemoglobin A1c 5 Months E11.65 - Type 2 diabetes mellitus with hyperglycemia Lipid Panel 5 Months E11.65 - Type 2 diabetes mellitus with hyperglycemia, E78.00 - Pure hypercholesterolemia, unspecified Free T4 (Free Thyroxine) 5 Months E11.65 - Type 2 diabetes mellitus with hyperglycemia Thyroid Stimulating Hormone 5 Months E11.65 - Type 2 diabetes mellitus with hyperglycemia Creatinine Urine 5 Months E11.65 - Type 2 diabetes mellitus with hyperglycemia Microalbumin, Random (w Creat) 5 Months E11.65 - Type 2 diabetes mellitus with hyperglycemia Complete Blood Count Auto Diff 5 Months E11.65 - Type 2 diabetes mellitus with hyperglycemia AMB Hemoglobin A1c Today Z13.9 - Encounter for screening, unspecified Medications: Refilled clotrimazole 1% 1 appl topical BID 4 weeks 45 grams 2RF N48.1 - Balanitis Coding Level of Care Code Est Pt Level 4 (29950) Diagnoses Type 2 diabetes mellitus with hyperglycemia E11.65 Diabetes mellitus alf insulin use: without alf use Chronic kidney disease (CKD) stage G3a/A1, moderately decreased glomerular filtration rate (GFR) between 45-59 mL/min/1.73 square meter and albuminuria creatinine ratio less than 30 mg/g N18.31 GERD (gastroesophageal reflux disease) K21.9 Esophagitis presence: without esophagitis Hypercholesterolemia E78.00 Hypertension I10 Hypertension type: essential hypertension Coronary artery disease I25.10 Coronary Disease-Associated Artery/Lesion type: [place] artery [place] vs. transplanted heart: [place] heart Associated angina: without angina Generalized anxiety disorder F41.1
[2022-12-25 13:11] VITALS: BP 118/62; PULSE 72; O2SAT 98; BMI 28.7
== END 2022-12-25 13:47 | disposition home or self-care (01) ==
PROVIDERS: Visit Provider Internal Medicine
DX: I12.9 Hypertensive chronic kidney disease with stage 1 through stage 4 chronic kidney disease, or unspecified chronic kidney disease (principal); E11.65 Type 2 diabetes mellitus with hyperglycemia; N18.31 Chronic kidney disease, stage 3a; K21.9 Gastro-esophageal reflux disease without esophagitis; E78.00 Pure hypercholesterolemia, unspecified; I25.10 Atherosclerotic heart disease of native coronary artery without angina pectoris; F41.1 Generalized anxiety disorder
CPT/HCPCS: 99214

== ENCOUNTER 2022-12-27 07:21 | Outpatient (REF) | payer MEDICARE, OTHER, SELFPAY ==
[2022-12-27 07:58] LABS: Anion Gap 11 (12-20); Blood Urea Nitrogen 26 mg/dL (9-16); Calcium 9.4 mg/dL (8.4-10.2); Carbon Dioxide 26 mmol/L (22-29); Chloride 107 mmol/L (96-108); Estimated Glomerular Filt Rate 58; Potassium 4.3 mmol/L (3.3-5.1); Sodium 140 mmol/L (135-145)
== END 2022-12-27 07:22 | disposition home or self-care (01) ==
LOC: HO.LAB 07:21
PROVIDERS: PCP Internal Medicine; Visit Provider Internal Medicine Nephrology
DX: I12.9 Hypertensive chronic kidney disease with stage 1 through stage 4 chronic kidney disease, or unspecified chronic kidney disease (principal); N18.31 Chronic kidney disease, stage 3a
CPT/HCPCS: 36415; 80051; 82310; 82565; 84520

== ENCOUNTER 2023-02-20 08:12 | Outpatient (AMB) | payer MEDICARE, OTHER, SELFPAY ==
[2023-02-20 09:40] VITALS: BP 150/76; PULSE 66; TEMP 36.4; O2SAT 95; BMI 28.8
--- NOTE | 2023-02-20 09:40 | MHC.OFFWIV ---
Intake Vital Signs 02/20/23 09:40 Height 5 ft 10 in Weight 91.172 kg BMI 28.8 BP 150/76 H Blood Pressure Location Rt brachial Position Sitting Pulse 66 Pulse Source Pulse Oximeter Temp 97.5 F Temp Source Temporal Artery Scan Pulse Oximetry (%) 95 Oxygen Delivery Method Room Air Intake Visit Reasons: EP Tick bite Intake Note: pt is here for c/o tick bite Patient Tobacco Use Status: Never used Tobacco Allergies lorazepam [From Ativan] Allergy (Mild, Verified 02/20/23 09:41) UNKNOWN Do you need a note to return to daycare/school/sports/work: Yes HPI HPI Comments History of Present Illness Details 0990 82-year-old male presents for evaluation of tick bite, concerned for Lyme disease he took a tick that was deeply embeded out of his right wrist region. Thinks he got it while hunting but unclear when. Denies fevers, chills, nausea, vomiting, abdominal pain, headache, vision changes, dizziness, weakness. Physical examination w/ a slight puncture wound to right wrist region History and physical exam concerning for tick bite and likely secondary to tick-borne illnesses. No signs of cellulitis, necrotizing infection, abscess. Plan at this time will obtain a tick panel, Western blot and Lyme testing. Will treat prophylactically with doxycycline for 14 days of additional days of doxycycline are warranted with a positive test they will be added at that time. Educated patient on diagnosis and treatment plan, answered all question, patient verbalizes understanding. At this time patient will be discharged home, advised to return with new or worsening symptoms. Educated on worrisome signs and symptoms and when to return. At this time I feel comfortable discharge home. [facility] Medical History Anemia On beta pedro at home Myocardial infarction Palpitations Pericarditis Coronary artery disease Pernicious anemia Type 2 diabetes mellitus with hyperglycemia Vitamin B12 deficiency Meningioma Chronic kidney disease (CKD) stage G3a/A1, moderately decreased glomerular filtration rate (GFR) between 45-59 mL/min/1.73 square meter and albuminuria creatinine ratio less than 30 mg/g GERD (gastroesophageal reflux disease) Tick bite of abdominal wall Hypercholesterolemia Hypertension Surgical History History of heart artery stent History of colonoscopy History of inguinal hernia repair Family History Father CHF (congestive heart failure) CAD (coronary artery disease) CVD (cardiovascular disease) Mother CHF (congestive heart failure) CVD (cardiovascular disease) Diabetes Social History Housing: House Alcohol intake: former Patient Tobacco Use Status: Never used Tobacco e-Cigarette/Vaping Use: Never Used Second Hand Smoke Exposure: No service: No Current occupational status: retired Cognitive needs: No Hearing needs: No Vision needs: Yes Review of Systems Const Details: Constitutional : No Weight loss, No Fever, No Chills, No Fatigue, No Malaise ENT/Mouth : No sore throat, No Rhinorrhea Eyes: No Eye Pain, No Swelling, No Redness Cardiovascular : No Chest Pain, No SOB, No Dyspnea on Exertion, No Orthopnea, No Edema, No Palpitations Respiratory : No Cough, No Sputum, No Wheezing Gastrointestinal : No Nausea, No Vomiting, No Diarrhea, No Constipation, No abdominal Pain, No Hematochezia, No Melena Genitourinary : No Dysuria, No Urinary Frequency, No Hematuria, Musculoskeletal : No joint pain, No Myalgias, No Joint Swelling Skin : + Skin Lesions, No rash Neuro : No Weakness, No Numbness, No Dizziness, No Headache Psych : No Anxiety/Panic, No Depression All other systems reviewed and are negative All systems reviewed & are unremarkable except as noted in HPI and below Physical Exam Vital Signs: Last Vital Signs Temp 97.5 F 02/20/23 09:40 Pulse 66 02/20/23 09:40 BP 150/76 H 02/20/23 09:40 Pulse Ox 95 02/20/23 09:40 Oxygen Delivery Method Room Air 02/20/23 09:40 BMI result Body Mass Index 28.8 vss Appearance: Alert.? Oriented X3.? No acute distress.? Head: Normocephalic, atraumatic, no step-offs or deformities Eyes: Pupils equal, round and reactive to light.? Neck: Normal inspection.? Neck supple.? CVS: Normal heart rate and rhythm.? Pulses normal.? Respiratory: No respiratory distress.? Breath sounds normal.? Abdomen: Soft and nontender.? Skin: Skin warm and dry.? Normal skin color.? Normal skin turgor.?+ slight puncture wound to right wrist region Extremities: No lower extremity edema.? No calf ttp. 5/5 strength to bilateral upper and lower extremities Neuro: Oriented X 3.? No motor deficit.? No sensory deficit. CN 2-12 intact Assessment & Plan Assessment & Plan (1) Tick bite: Code(s): W57.XXXA - Bitten or stung by nonvenomous insect and other nonvenomous arthropods, initial encounter Qualifiers: Encounter type: initial encounter Qualified Code(s): W57.XXXA - Bitten or stung by nonvenomous insect and other nonvenomous arthropods, initial encounter Plan Take your medications as prescribed. If you were prescribed antibiotics today, it is important that you take your medication to their entirety, do not skip any doses, do not finish them early. Follow-up with your primary care provider this week. Return to the emergency department with new or worsening symptoms. Such as fevers, chills, chest pain, shortness of breath, nausea, vomiting, dizziness, headache, vision changes, lethargy In case of emergency call 911 Orders: Orders Tick-borne Disease Molecular Today W57.XXXA - Bitten or stung by nonvenomous insect and other nonvenomous arthropods, initial encounter Lyme IgG/IgM w/reflex to WB Today W57.XXXA - Bitten or stung by nonvenomous insect and other nonvenomous arthropods, initial encounter Coding Level of Care Code Est Pt Level 3 (66159) Diagnoses Tick bite, initial encounter W57.XXXA Encounter type: initial encounter
== END 2023-02-20 11:16 | disposition home or self-care (01) ==
PROVIDERS: PCP Internal Medicine; Visit Provider Physician Assistant
DX: T63.481A Toxic effect of venom of other arthropod, accidental (unintentional), initial encounter (principal)
CPT/HCPCS: 99213

== ENCOUNTER 2023-02-20 10:00 | Outpatient (REF) | payer MEDICARE, OTHER, SELFPAY ==
[2023-02-21 09:09] LABS: Lyme Abs Screen <0.90 index
[2023-02-22 01:14] LABS: A. Phagocytphilium DNA,RT-PCR NOT DETECTED (NOT DETECTED); Babesia Microti DNA, RT-PCR NOT DETECTED (NOT DETECTED); Borrelia Miyamotoi,DNA RT-PCR NOT DETECTED (NOT DETECTED); E.Chaffeensis DNA RT-PCR NOT DETECTED (NOT DETECTED); Lyme(Borrelia ssp)DNA RT-PCR NOT DETECTED (NOT DETECTED)
== END 2023-02-20 10:01 | disposition home or self-care (01) ==
LOC: HO.HMGCLDS 10:00
PROVIDERS: PCP Internal Medicine; Visit Provider Physician Assistant
DX: T14.8XXA Other injury of unspecified body region, initial encounter (principal); W57.XXXA Bitten or stung by nonvenomous insect and other nonvenomous arthropods, initial encounter
CPT/HCPCS: 36415; 86617; 86618; 87468; 87469; 87478; 87484; 87798

== ENCOUNTER 2023-05-27 10:40 | Outpatient (AMB) | payer MEDICARE, OTHER, SELFPAY ==
[2023-05-27 10:42] VITALS: BP 130/60; PULSE 64; O2SAT 96; BMI 28.7
--- NOTE | 2023-05-27 10:42 | MHC.PC.OV ---
Vital Signs 05/27/23 10:42 Height 5 ft 10 in Weight 200 lb BMI 28.7 BP 130/60 Blood Pressure Location Lt brachial Position Sitting Pulse 64 Pulse Source Pulse Oximeter Pulse Oximetry (%) 96 Oxygen Delivery Method Room Air Intake Visit Reasons: DM Intake Note: Patient is here to follow up on DM Crystalizer Required: No Allergies lorazepam [From Ativan] Allergy (Mild, Verified 05/27/23 10:42) UNKNOWN Tobacco use date assessed: 05/27/23 Fall risk assessment: No Falls in past year Last assessed Fall Risk: 05/27/23 Dental Screening Dental Screen Date: 05/27/23 Did you have a dental visit in the last 12 months?: Yes Did you have a dental problem in the last 6 months where you did not have access to dental care?: No Was dental information given to patient?: Patient has dentist HPI DM HPI Details 82-year-old overweight male with diabetes mellitus chronic kidney disease GERD hypercholesterolemia coronary artery disease and hypertension last seen in December 2022. Patient's colonoscopy is up-to-date July 2021. Patient had a tick bite and went to the Urgent Center. Patient also is being followed up by Nephrology on an Yony inhibitor on Jardiance renal function is stable [facility] Medical History Anemia On beta pedro at home Myocardial infarction Palpitations Pericarditis Coronary artery disease Pernicious anemia Type 2 diabetes mellitus with hyperglycemia Vitamin B12 deficiency Meningioma Chronic kidney disease (CKD) stage G3a/A1, moderately decreased glomerular filtration rate (GFR) between 45-59 mL/min/1.73 square meter and albuminuria creatinine ratio less than 30 mg/g GERD (gastroesophageal reflux disease) Tick bite of abdominal wall Hypercholesterolemia Hypertension Surgical History History of heart artery stent History of colonoscopy History of inguinal hernia repair Family History Father CHF (congestive heart failure) CAD (coronary artery disease) CVD (cardiovascular disease) Mother CHF (congestive heart failure) CVD (cardiovascular disease) Diabetes Social History Housing: House Alcohol intake: former Patient Tobacco Use Status: Never used Tobacco e-Cigarette/Vaping Use: Never Used Second Hand Smoke Exposure: No service: No Current occupational status: retired Cognitive needs: No Hearing needs: No Vision needs: Yes Questionnaire PHQ-9 Over the last 2 weeks, how often have you been bothered by any of the following problems? 1. Little interest or pleasure in doing things: not at all 2. Feeling down, depressed, or hopeless: not at all 3. Trouble falling or staying asleep, or sleeping too much: not at all 4. Feeling tired or having little energy: not at all 5. Poor appetite or overeating: not at all 6. Feeling bad about yourself - or that you are a failure or have let yourself or your family down: not at all 7. Trouble concentrating on things, such as reading the newspaper or watching television: not at all 8. Moving or speaking so slowly that other people could have noticed. Or the opposite - being so fidgety or restless that you have been moving around a lot more than usual: not at all 9. Thoughts that you would be better off or of hurting yourself in some way: not at all Total score: 0 Depression Screening Interpretation: Negative Depression Screening Done: Yes Source: Developed by Drs. Jorge L Reyes, Jose De Jesus Oliva and colleagues, with an educational linus from [employer]. Thrive Questionnaire Date Thrive assessed: 05/27/23 AUDIT C Alcohol Use Questionnaire (AUDIT-C) 1. How often do you have a drink containing alcohol?: Never 3. How often do you have six or more drinks on one occasion?: Never Total Score: 0 LIANNA-7 AMB Questionnaire LIANNA-7 Date LIANNA - 7 assessed: 05/27/23 Source: Developed by Drs. Jorge L Reyes, Jose De Jesus Oliva and colleagues, with an educational linus from [employer]. Physical exam (Primary Care) Vital Signs: Last Vital Signs Pulse 64 05/27/23 10:42 BP 130/60 05/27/23 10:42 Pulse Ox 96 05/27/23 10:42 Oxygen Delivery Method Room Air 05/27/23 10:42 BMI result Body Mass Index 28.7 Tobacco/Smoking Status: Tobacco use Status Tobacco use date assessed 05/27/23 05/27/23 10:43 Patient Tobacco Use Status Never used Tobacco 05/27/23 10:43 e-Cigarette/Vaping Use Never Used 05/27/23 10:43 PHQ-9: PHQ-9 Score PHQ-9: Total score 0 05/27/23 10:55 Depression Screening Interpretation: Negative Thrive Assessment: Date of Thrive Assessment Date Thrive assessed 05/27/23 05/27/23 10:43 Const General: alert; No acute distress Eyes Conjunctivae: conjunctivae normal Resp Auscultation: clear to auscultation bilaterally Cardio Rate: regular rate Rhythm: regular rhythm GI Inspection: Yes normal to inspection Extrem General: Yes normal to inspection and No edema Results AMB Hemoglobin A1c AMB Hemoglobin A1c 7.2 % Last Edit by UMBERTO Haque on 05/27/23 10:55 Results Reviewed Results Reviewed: Laboratory Last Values Hgb A1c (Clinic) 7.2 % (4.0-6.0) H 05/27/23 09:27 Assessment and Plan Assessment & Plan (1) Type 2 diabetes mellitus with hyperglycemia: Comment: EYE and LASIK Code(s): E11.65 - Type 2 diabetes mellitus with hyperglycemia Qualifiers: Diabetes mellitus ocean transportation intermediary insulin use: without ocean transportation intermediary use Qualified Code(s): E11.65 - Type 2 diabetes mellitus with hyperglycemia Plan: Decrease the amount of carbohydrate intake, pasta, bread, rice and potatoes are all sugar and that is aside from all the sweet stuff, remember that fruits are good but they are Sweet also. Hemoglobin A1c goal of less than 7.0 presently on Jardiance 25 mg once a day glipizide 5 mg twice a day s (2) Chronic kidney disease (CKD) stage G3a/A1, moderately decreased glomerular filtration rate (GFR) between 45-59 mL/min/1.73 square meter and albuminuria creatinine ratio less than 30 mg/g: Comment: Sees Dr. Vicente Code(s): N18.31 - Chronic kidney disease, stage 3a Plan: Patient follows up been Nephrology seen February last year continue with monitoring. Diabetes and blood pressure control (3) GERD (gastroesophageal reflux disease): Code(s): K21.9 - Gastro-esophageal reflux disease without esophagitis Qualifiers: Esophagitis presence: without esophagitis Qualified Code(s): K21.9 - Gastro-esophageal reflux disease without esophagitis Plan: Avoid the foods that causes that usually spicy foods, tomato products, juices, coffee, soda and foods that your sensitive to. After eating do not lie down, allow 3-4 hours before in lie down. And keep the head of bed above 30 degrees to avoid the acid from going up. (4) Hypercholesterolemia: Code(s): E78.00 - Pure hypercholesterolemia, unspecified Plan: Avoid fried foods, chicken skin, eggs, butter margarine, pastries and meat. Be it pork or beef they have a lot of cholesterol LDL goal of less than 70 and triglyceride of less than 150 patient will need blood work patient is on rosuvastatin 40 mg once a day (5) Hypertension: Code(s): I10 - Essential (primary) hypertension Qualifiers: Hypertension type: essential hypertension Qualified Code(s): I10 - Essential (primary) hypertension Plan: Continue with blood pressure medication. Decrease salt intake and exercise presently on lisinopril 2.5 mg once a day metoprolol tartrate 100 mg twice a day (6) Coronary artery disease: Comment: PCI of LAD January 2008 MRI January 2008 repeat drug-eluting stent LAD August 2012 , positive stress test April 2020 medical management Code(s): I25.10 - Atherosclerotic heart disease of [place] coronary artery without angina pectoris Qualifiers: Coronary Disease-Associated Artery/Lesion type: [place] artery [place] vs. transplanted heart: [place] heart Associated angina: without angina Qualified Code(s): I25.10 - Atherosclerotic heart disease of [place] coronary artery without angina pectoris Plan: Continue with aspirin 81 mg once a day and Control the cholesterol, weight, blood pressure, diabetes (7) Generalized anxiety disorder: Code(s): F41.1 - Generalized anxiety disorder Plan: Stable Orders: Orders AMB Hemoglobin A1c Today E11.65 - Type 2 diabetes mellitus with hyperglycemia Coding Level of Care Code Est Pt Level 4 (76276) Diagnoses Type 2 diabetes mellitus with hyperglycemia, without long-term current use of insulin E11.65 Diabetes mellitus ocean transportation intermediary insulin use: without retirement use Chronic kidney disease (CKD) stage G3a/A1, moderately decreased glomerular filtration rate (GFR) between 45-59 mL/min/1.73 square meter and albuminuria creatinine ratio less than 30 mg/g N18.31 Gastroesophageal reflux disease without esophagitis K21.9 Esophagitis presence: without esophagitis Hypercholesterolemia E78.00 Essential hypertension I10 Hypertension type: essential hypertension Coronary artery disease involving [place] coronary artery of [place] heart without angina pectoris I25.10 Coronary Disease-Associated Artery/Lesion type: [place] artery [place] vs. transplanted heart: [place] heart Associated angina: without angina Generalized anxiety disorder F41.1
== END 2023-05-27 11:29 | disposition home or self-care (01) ==
PROVIDERS: PCP Internal Medicine; Visit Provider Internal Medicine
DX: E11.65 Type 2 diabetes mellitus with hyperglycemia (principal); I12.9 Hypertensive chronic kidney disease with stage 1 through stage 4 chronic kidney disease, or unspecified chronic kidney disease; N18.31 Chronic kidney disease, stage 3a; K21.9 Gastro-esophageal reflux disease without esophagitis; E78.00 Pure hypercholesterolemia, unspecified; I25.10 Atherosclerotic heart disease of native coronary artery without angina pectoris; F41.1 Generalized anxiety disorder
CPT/HCPCS: 83036; 99214

== ENCOUNTER 2023-05-31 07:27 | Outpatient (REF) | payer MEDICARE, OTHER, SELFPAY ==
[2023-05-31 08:13] LABS: MANUAL DIFF FLAG NO
[2023-05-31 09:17] LABS: Basophils Absolute Auto 0.1 X10*3/uL (0.0-0.2); Basophils Percent Auto 0.9 % (0-2); Eosinophils Absolute Auto 0.2 X10*3/uL (0.0-0.4); Eosinophils Percent Auto 3.3 % (0-4); Hematocrit 50.4 % (42.0-52.0); Hemoglobin 17.7 g/dl (14.0-18.0); Imm Gran Abs Auto 0.01 X10*3/uL (0.00-0.03); Imm Gran Pct Auto 0.2 % (0.0-0.4); Lymphocytes Absolute Auto 1.3 X10*3/uL (1.2-4.9); Lymphocytes Percent Auto 22.1 % (20-40); Mean Corpuscular HGB Conc 35.1 g/dl (31.0-36.0); Mean Corpuscular Hemoglobin 33.4 pg (27.0-33.0); Mean Corpuscular Volume 95.1 fL (80.0-98.0); Mean Platelet Volume 11.2 fL (9.4-12.4); Monocytes Absolute Auto 0.4 X10*3/uL (0.1-1.2); Monocytes Percent Auto 6.6 % (2-11); Neutrophils Absolute Auto 3.9 x10*3/uL (2.0-8.3); Neutrophils Percent Auto 66.9 % (45-73); Platelet Count 106 X10*3/uL (160-400); Red Cell Distribution Width 12.6 % (11.0-16.0); White Blood Count 5.8 X10*3/uL (4.8-10.8)
[2023-05-31 09:19] LABS: Basophils Percent Auto 0.5 % (0-2); Eosinophils Absolute Auto 0.2 X10*3/uL (0.0-0.4); Eosinophils Percent Auto 3.2 % (0-4); Hematocrit 51.7 % (42.0-52.0); Hemoglobin 18.2 g/dl (14.0-18.0); Imm Gran Abs Auto 0.02 X10*3/uL (0.00-0.03); Imm Gran Pct Auto 0.4 % (0.0-0.4); Lymphocytes Absolute Auto 1.3 X10*3/uL (1.2-4.9); Lymphocytes Percent Auto 22.6 % (20-40); Mean Corpuscular HGB Conc 35.2 g/dl (31.0-36.0); Mean Corpuscular Hemoglobin 33.6 pg (27.0-33.0); Mean Corpuscular Volume 95.6 fL (80.0-98.0); Mean Platelet Volume 11.3 fL (9.4-12.4); Monocytes Absolute Auto 0.4 X10*3/uL (0.1-1.2); Monocytes Percent Auto 6.6 % (2-11); Neutrophils Absolute Auto 3.8 x10*3/uL (2.0-8.3); Neutrophils Percent Auto 66.7 % (45-73); Platelet Count 106 X10*3/uL (160-400); Red Blood Count 5.41 X10*6/uL (4.60-5.80); Red Cell Distribution Width 12.7 % (11.0-16.0); White Blood Count 5.6 X10*3/uL (4.8-10.8)
[2023-05-31 09:32] LABS: Estimated Average Glucose 148 mg/dL; Hemoglobin A1c % 6.8 % (<6.0)
[2023-05-31 10:02] LABS: B Type Natriuretic Peptide 77 pg/mL (<100)
[2023-05-31 10:28] LABS: Creatinine Urine 91.62 mg/dL; Microalbum/Creatinine Ratio Ur 10.9 ug/mg cr (<30)
[2023-05-31 10:32] LABS: Creatinine Urine 91.46 mg/dL; Total Protein Urine Random < 7 mg/dL (<12)
[2023-05-31 10:50] LABS: Alanine Aminotransferase 32 U/L (0-40); Alkaline Phosphatase 79 U/L (39-117); Anion Gap 14 (12-20); Aspartate Amino Transferase 25 U/L (5-37); Bilirubin Total 2.9 mg/dL (0.0-1.0); Blood Urea Nitrogen 18 mg/dL (9-16); Calcium 9.6 mg/dL (8.4-10.2); Carbon Dioxide 26 mmol/L (22-29); Chloride 106 mmol/L (96-108); Cholesterol 133 mg/dL (<200); Estimated Glomerular Filt Rate 59; Glucose Random 165 mg/dL (60-115); HDL Cholesterol 39 mg/dL (>40); LDL Cholesterol Calculated 51 mg/dL (<100); Potassium 4.2 mmol/L (3.3-5.1); Sodium 142 mmol/L (135-145); Total Protein 6.6 g/dL (6.5-8.0); Triglycerides 216 mg/dL (<150)
[2023-05-31 10:52] LABS: Free T4 (Free Thyroxine) 0.94 ng/dL (0.71-1.85)
[2023-05-31 10:56] LABS: Thyroid Stimulating Hormone 1.08 uIU/mL (0.32-4.0)
[2023-05-31 11:11] LABS: Folate 14.5 ng/mL (> or = 4.0); Vitamin B12 913 pg/mL (200-900)
== END 2023-05-31 07:28 | disposition home or self-care (01) ==
LOC: HO.LAB 07:27
PROVIDERS: Absent Provider Internal Medicine Nephrology; PCP Internal Medicine; Visit Provider Internal Medicine
DX: N20.0 Calculus of kidney (principal); I12.9 Hypertensive chronic kidney disease with stage 1 through stage 4 chronic kidney disease, or unspecified chronic kidney disease; N18.31 Chronic kidney disease, stage 3a; E78.00 Pure hypercholesterolemia, unspecified; E11.65 Type 2 diabetes mellitus with hyperglycemia
CPT/HCPCS: 36415; 80053; 80061; 82043; 82570; 82607; 82746; 83036; 83880; 84156; 84439; 84443; 85025

== ENCOUNTER 2023-06-25 14:08 | Outpatient (AMB) | payer MEDICARE, OTHER, SELFPAY ==
--- NOTE | 2023-06-25 14:14 | HO.NEPHOV_ITS ---
HPI HPI Comments History of Present Illness Details I had the privilege of seeing George in follow-up of his chronic kidney disease and hypertension. He has history of coronary artery disease and had undergone stenting. He is diabetic as well. His blood sugars are well controlled. He is on Jardiance. He is tolerating JESUS inhibitor. He is closely followed up by his java lead developer. He has gained some weight. He is on statins. He does not have any myalgia. He denies chest pain, shortness of breath, orthostatic symptoms, palpitation, pedal edema or urinary symptoms. He does not take any nonsteroidal anti-inflammatories. His renal functions have been stab le. [facility] Medical History Anemia On beta pedro at home Myocardial infarction Palpitations Pericarditis Coronary artery disease Pernicious anemia Type 2 diabetes mellitus with hyperglycemia Vitamin B12 deficiency Meningioma Chronic kidney disease (CKD) stage G3a/A1, moderately decreased glomerular filtration rate (GFR) between 45-59 mL/min/1.73 square meter and albuminuria creatinine ratio less than 30 mg/g GERD (gastroesophageal reflux disease) Tick bite of abdominal wall Hypercholesterolemia Hypertension Surgical History History of heart artery stent History of colonoscopy History of inguinal hernia repair Family History Father CHF (congestive heart failure) CAD (coronary artery disease) CVD (cardiovascular disease) Mother CHF (congestive heart failure) CVD (cardiovascular disease) Diabetes Social History Housing: House Alcohol intake: former Patient Tobacco Use Status: Never used Tobacco e-Cigarette/Vaping Use: Never Used Second Hand Smoke Exposure: No service: No Current occupational status: retired Cognitive needs: No Hearing needs: No Vision needs: Yes Vital Signs 06/25/23 14:15 Height 5 ft 10 in Weight 201 lb BMI 28.8 BP 112/60 Blood Pressure Location Rt brachial Position Sitting Pulse 66 Pulse Source Pulse Oximeter Pulse Oximetry (%) 97 Oxygen Delivery Method Room Air Physical Exam Vital Signs: Last Vital Signs Pulse 66 06/25/23 14:15 BP 112/60 06/25/23 14:15 Pulse Ox 97 06/25/23 14:15 Oxygen Delivery Method Room Air 06/25/23 14:15 BMI result Body Mass Index 28.8 Const General: comfortable and no acute distress Orientation/consciousness: patient oriented x3 HEENT Head: Yes normocephalic Mouth: Normal oral and palatal mucosa present Eyes EOM: EOMs intact bilaterally Neck Neck: Yes supple Resp Auscultation: clear to auscultation bilaterally Cardio Jugular venous distension: no JVD Rate: regular rate GI Palpation (GI): Soft to palpation Auscultation: normal bowel sounds General: Yes no CVA tenderness Back/Spine/Pelvis Back: no CVA tenderness Skin General skin exam: no rashes or lesions noted Neuro General: patient oriented x3 and moves all extremities Extrem General: Yes no pedal edema Assessment & Plan Assessment & Plan (1) Chronic kidney disease (CKD) stage G3a/A1, moderately decreased glomerular filtration rate (GFR) between 45-59 mL/min/1.73 square meter and albuminuria creatinine ratio less than 30 mg/g: Comment: Sees Dr. Richards Code(s): N18.31 - Chronic kidney disease, stage 3a (2) Hypertension: Code(s): I10 - Essential (primary) hypertension Qualifiers: Hypertension type: essential hypertension Qualified Code(s): I10 - Essential (primary) hypertension Plan George has CKD stage 3 and hypertension. His renal functions are stable. His blood pressure is at goal. He needs to lose some weight. He is on Jardiance. He most likely has some renovascular disease as well. He is tolerating JESUS inhibitor. He avoids nonsteroidal anti-inflammatories and maintain good hydration. I did not make any medication changes today. All questions answered. Follow-up blood work ordered and follow-up appointment given. Orders: Orders Creatinine 06/25/23 N18.31 - Chronic kidney disease, stage 3a, I10 - Essential (primary) hypertension Electrolytes 06/25/23 N18.31 - Chronic kidney disease, stage 3a, I10 - Essential (primary) hypertension Blood Urea Nitrogen 06/25/23 N18.31 - Chronic kidney disease, stage 3a, I10 - Essential (primary) hypertension Coding Level of Care Code Est Pt Level 4 (06405) Diagnoses Chronic kidney disease (CKD) stage G3a/A1, moderately decreased glomerular filtration rate (GFR) between 45-59 mL/min/1.73 square meter and albuminuria creatinine ratio less than 30 mg/g N18.31 Essential hypertension I10 Hypertension type: essential hypertension Results Reviewed Nephrology Results: Hgb 18.2 g/dl (14.0-18.0) H 05/31/23 WBC 5.6 X10*3/uL (4.8-10.8) 05/31/23 Plt Count 106 X10*3/uL (160-400) L 05/31/23 Sodium 142 mmol/L (135-145) 05/31/23 Potassium 4.2 mmol/L (3.3-5.1) 05/31/23 Chloride 106 mmol/L (96-108) 05/31/23 Carbon Dioxide 26 mmol/L (22-29) 05/31/23 BUN 18 mg/dL (9-16) H 05/31/23 Creatinine 1.18 mg/dL (0.5-1.4) 05/31/23 Calcium 9.6 mg/dL (8.4-10.2) 05/31/23 Urine Creatinine 91.46 mg/dL 05/31/23 Protein/Creatinin Ratio TNP 05/31/23
[2023-06-25 14:15] VITALS: BP 112/60; PULSE 66; O2SAT 97; BMI 28.8
== END 2023-06-25 14:55 | disposition home or self-care (01) ==
PROVIDERS: PCP Internal Medicine; Visit Provider Internal Medicine Nephrology
DX: N18.31 Chronic kidney disease, stage 3a (principal); I10 Essential (primary) hypertension
CPT/HCPCS: 99214

== ENCOUNTER → 2023-06-25 14:08 | Outpatient (BNVA) | payer MEDICARE, OTHER, SELFPAY | PROVIDERS: PCP Internal Medicine; Visit Provider Internal Medicine Nephrology | DX: I12.9 Hypertensive chronic kidney disease with stage 1 through stage 4 chronic kidney disease, or unspecified chronic kidney disease (principal); N18.31 Chronic kidney disease, stage 3a | CPT/HCPCS: 99212 ==

== ENCOUNTER 2023-09-04 09:27 | Outpatient (AMB) | payer MEDICARE, OTHER, SELFPAY ==
[2023-09-04 09:47] VITALS: BP 118/62; PULSE 68; O2SAT 98; BMI 28.4
--- NOTE | 2023-09-04 09:47 | A.OFFPC_ITS ---
Vital Signs 09/04/23 09:47 Height 5 ft 10 in Weight 198 lb BMI 28.4 BP 118/62 Blood Pressure Location Lt brachial Position Sitting Pulse 68 Pulse Source Pulse Oximeter Pulse Oximetry (%) 98 Oxygen Delivery Method Room Air Intake Visit Reasons: DM Allergies lorazepam [From Ativan] Allergy (Mild, Verified 09/04/23 09:47) UNKNOWN Tobacco use date assessed: 09/04/23 Fall risk assessment: No Falls in past year Last assessed Fall Risk: 09/04/23 Dental Screening Dental Screen Date: 09/04/23 Did you have a dental visit in the last 12 months?: Yes Did you have a dental problem in the last 6 months where you did not have access to dental care?: No Was dental information given to patient?: Patient has dentist HPI DM HPI Details 82-year-old overweight male with control led diabetes mellitus chronic kidney disease GERD hypercholesterolemia hypertension coronary artery disease and generalized anxiety disorder last seen in May 2023. Review of the notes ER visit for chest pains July 2023 cardiac consultation at that time advised Imdur advised to get stress test. Patient was also followed up by Nephrology chronic kidney disease stage IIIA stable renal function blood pressure at goal on Jardiance L chest pain still intemittent on exertion will be seeing Cardiology Dr. Irving today, knows hypoglycemia episodes but know reason [facility] Medical History Anemia On beta pedro at home Myocardial infarction Palpitations Pericarditis Coronary artery disease Pernicious anemia Type 2 diabetes mellitus with hyperglycemia Vitamin B12 deficiency Meningioma Chronic kidney disease (CKD) stage G3a/A1, moderately decreased glomerular filtration rate (GFR) between 45-59 mL/min/1.73 square meter and albuminuria creatinine ratio less than 30 mg/g GERD (gastroesophageal reflux disease) Tick bite of abdominal wall Hypercholesterolemia Hypertension Surgical History History of heart artery stent History of colonoscopy History of inguinal hernia repair Family History Father CHF (congestive heart failure) CAD (coronary artery disease) CVD (cardiovascular disease) Mother CHF (congestive heart failure) CVD (cardiovascular disease) Diabetes Social History Housing: House Alcohol intake: former Patient Tobacco Use Status: Never used Tobacco e-Cigarette/Vaping Use: Never Used Second Hand Smoke Exposure: No service: No Current occupational status: retired Cognitive needs: No Hearing needs: No Vision needs: Yes Questionnaire PHQ-9 Over the last 2 weeks, how often have you been bothered by any of the following problems? 1. Little interest or pleasure in doing things: not at all 2. Feeling down, depressed, or hopeless: not at all 3. Trouble falling or staying asleep, or sleeping too much: not at all 4. Feeling tired or having little energy: not at all 5. Poor appetite or overeating: not at all 6. Feeling bad about yourself - or that you are a failure or have let yourself or your family down: not at all 7. Trouble concentrating on things, such as reading the newspaper or watching television: not at all 8. Moving or speaking so slowly that other people could have noticed. Or the opposite - being so fidgety or restless that you have been moving around a lot more than usual: not at all 9. Thoughts that you would be better off or of hurting yourself in some way: not at all Total score: 0 Depression Screening Interpretation: Negative Depression Screening Done: Yes Source: Developed by Drs. Jorge L Reyes, Jose De Jesus Oliva and colleagues, with an educational linus from [employer]. Thrive Questionnaire Date Thrive assessed: 05/27/23 AUDIT C Alcohol Use Questionnaire (AUDIT-C) 1. How often do you have a drink containing alcohol?: Never 3. How often do you have six or more drinks on one occasion?: Never Total Score: 0 LIANNA-7 AMB Questionnaire LIANNA-7 Date LIANNA - 7 assessed: 05/27/23 Source: Developed by Yesi Moncada Kurt Kroenke and colleagues, with an educational linus from [employer]. Physical exam (Primary Care) Vital Signs: Last Vital Signs Pulse 68 09/04/23 09:47 BP 118/62 09/04/23 09:47 Pulse Ox 98 09/04/23 09:47 Oxygen Delivery Method Room Air 09/04/23 09:47 BMI result Body Mass Index 28.4 Tobacco/Smoking Status: Tobacco use Status Tobacco use date assessed 09/04/23 09/04/23 09:48 Patient Tobacco Use Status Never used Tobacco 09/04/23 09:48 e-Cigarette/Vaping Use Never Used 09/04/23 09:48 PHQ-9: PHQ-9 Score PHQ-9: Total score 0 09/04/23 10:01 Depression Screening Interpretation: Negative Thrive Assessment: Date of Thrive Assessment Date Thrive assessed 05/27/23 09/04/23 09:48 Const General: alert; No acute distress Eyes Conjunctivae: conjunctivae normal Resp Auscultation: clear to auscultation bilaterally Cardio Rate: regular rate Rhythm: regular rhythm GI Inspection: Yes normal to inspection Extrem General: Yes normal to inspection and No edema Results AMB Hemoglobin A1c AMB Hemoglobin A1c 7.0 % Last Edit by Nicole Quintero CMA on 09/04/23 10 :02 Results Reviewed Results Reviewed: Laboratory Last Values Hgb A1c (Clinic) 7.0 % (4.0-6.0) H 09/04/23 09:49 Assessment and Plan Assessment & Plan (1) Type 2 diabetes mellitus with hyperglycemia: Comment: EYE and LASIK Code(s): E11.65 - Type 2 diabetes mellitus with hyperglycemia Qualifiers: Diabetes mellitus [facility] insulin use: without regional intermodal truck driver use Qualified Code(s): E11.65 - Type 2 diabetes mellitus with hyperglycemia Plan: Decrease the amount of carbohydrate intake, pasta, bread, rice and potatoes are all sugar and that is aside from all the sweet stuff, remember that fruits are good but they are Sweet also. Hemoglobin A1c goal of less than 7.0 presently on Jardiance 25 mg once a day glipizide 5 mg twice a day (2) Chronic kidney disease (CKD) stage G3a/A1, moderately decreased glomerular filtration rate (GFR) between 45-59 mL/min/1.73 square meter and albuminuria creatinine ratio less than 30 mg/g: Comment: Sees Dr. Richards Code(s): N18.31 - Chronic kidney disease, stage 3a Plan: Patient follows up with Nephrology stable avoid NSAIDs keep well hydrated (3) Hypertension: Code(s): I10 - Essential (primary) hypertension Qualifiers: Hypertension type: essential hypertension Qualified Code(s): I10 - Essential (primary) hypertension Plan: Continue with blood pressure medication. Decrease salt intake and exercise presently on lisinopril 2.5 mg once a day metoprolol 100 mg twice a day (4) Hypercholesterolemia: Code(s): E78.00 - Pure hypercholesterolemia, unspecified Plan: Cholesterol plan LDL goal of less than 70 and preferably less than 55 triglyceride of less than 150 on rosuvastatin 40 mg once a day (5) GERD (gastroesophageal reflux disease): Code(s): K21.9 - Gastro-esophageal reflux disease without esophagitis Qualifiers: Esophagitis presence: without esophagitis Qualified Code(s): K21.9 - Gastro-esophageal reflux disease without esophagitis Plan: Avoid the foods that causes that usually spicy foods, tomato products, juices, coffee, soda and foods that your sensitive to. After eating do not lie down, allow 3-4 hours before in lie down. And keep the head of bed above 30 degrees to avoid the acid from going up. (6) Coronary artery disease: Comment: PCI of LAD January 2008 MRI January 2008 repeat drug-eluting stent LAD August 2012 , positive stress test April 2020 medical management Code(s): I25.10 - Atherosclerotic heart disease of [place] coronary artery without angina pectoris Qualifiers: Coronary Disease-Associated Artery/Lesion type: [place] artery [place] vs. transplanted heart: [place] heart Associated angina: without angina Qualified Code(s): I25.10 - Atherosclerotic heart disease of [place] coronary artery without angina pectoris Plan: Control the cholesterol, weight, blood pressure, diabetes patient had chest pains and was prescribed isosorbide mononitrate. (7) Generalized anxiety disorder: Code(s): F41.1 - Generalized anxiety disorder Plan: Stable Orders: Orders AMB Hemoglobin A1c Today Z13.9 - Encounter for screening, unspecified Coding Level of Care Code Est Pt Level 4 (19233) Diagnoses Type 2 diabetes mellitus with hyperglycemia, without long-term current use of insulin E11.65 Diabetes mellitus [facility] insulin use: without [facility] use Chronic kidney disease (CKD) stage G3a/A1, moderately decreased glomerular filtration rate (GFR) between 45-59 mL/min/1.73 square meter and albuminuria creatinine ratio less than 30 mg/g N18.31 Essential hypertension I10 Hypertension type: essential hypertension Hypercholesterolemia E78.00 Gastroesophageal reflux disease without esophagitis K21.9 Esophagitis presence: without esophagitis Coronary artery disease involving [place] coronary artery of [place] heart without angina pectoris I25.10 Coronary Disease-Associated Artery/Lesion type: [place] artery [place] vs. transplanted heart: [place] heart Associated angina: without angina Generalized anxiety disorder F41.1
== END 2023-09-04 10:26 | disposition home or self-care (01) ==
PROVIDERS: PCP Internal Medicine; Visit Provider Internal Medicine
DX: I12.9 Hypertensive chronic kidney disease with stage 1 through stage 4 chronic kidney disease, or unspecified chronic kidney disease (principal); E11.65 Type 2 diabetes mellitus with hyperglycemia; N18.31 Chronic kidney disease, stage 3a; E78.00 Pure hypercholesterolemia, unspecified; K21.9 Gastro-esophageal reflux disease without esophagitis; I25.10 Atherosclerotic heart disease of native coronary artery without angina pectoris; F41.1 Generalized anxiety disorder
CPT/HCPCS: 83036; 99214

== ENCOUNTER 2023-12-19 07:29 | Outpatient (REF) | payer MEDICARE, OTHER, SELFPAY ==
[2023-12-19 10:44] LABS: Anion Gap 10 (12-20); Blood Urea Nitrogen 16 mg/dL (9-16); Calcium 9.3 mg/dL (8.4-10.2); Carbon Dioxide 26 mmol/L (22-29); Chloride 108 mmol/L (96-108); Estimated Glomerular Filt Rate > 60; Sodium 140 mmol/L (135-145)
== END 2023-12-19 07:30 | disposition home or self-care (01) ==
LOC: HO.HMGCLDS 07:29
PROVIDERS: PCP Internal Medicine; Referring Provider Internal Medicine Nephrology; Visit Provider Internal Medicine
DX: I12.9 Hypertensive chronic kidney disease with stage 1 through stage 4 chronic kidney disease, or unspecified chronic kidney disease (principal); N18.31 Chronic kidney disease, stage 3a; N20.0 Calculus of kidney
CPT/HCPCS: 36415; 80051; 82310; 82565; 84520

== ENCOUNTER 2023-12-26 09:57 | Outpatient (AMB) | payer MEDICARE, OTHER, SELFPAY ==
--- NOTE | 2023-12-26 10:03 | HO.NEPHOV ---
Vital Signs 12/26/23 10:04 Height 5 ft 10 in Weight 198 lb 8 oz BMI 28.5 BP 120/50 L Blood Pressure Location Rt brachial Position Sitting Pulse 64 Pulse Source Pulse Oximeter Pulse Oximetry (%) 96 Oxygen Delivery Method Room Air Intake Visit Reasons: CKD/ 6 MO FU- Conf Media Consultant Required: No Accompanied by: Self / Same As Patient Allergies lorazepam [From Ativan] Allergy (Mild, Verified 12/26/23 10:07) UNKNOWN HPI Comments Details: I had the privilege of seeing George in follow-up of his chronic kidney disease and hypertension. He has history of coronary artery disease and had undergone stenting in the past. He recently had left arm pain and had cardiac cath- WNL. He is diabetic as well. His blood sugars are well controlled. He is on Jardiance. He is tolerating JESUS inhibitor. 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 He is on statins. He does not have any myalgia. He denies chest pain, shortness of breath, orthostatic symptoms, palpitation, pedal edema or urinary symptoms. He does not take any nonsteroidal anti-inflammatories. His renal functions have been stable. COUNTS INCLUDE 234 BEDS AT THE [facility] Medical History Anemia On beta pedro at home Myocardial infarction Palpitations Pericarditis Coronary artery disease Pernicious anemia Type 2 diabetes mellitus with hyperglycemia Vitamin B12 deficiency Meningioma Chronic kidney disease (CKD) stage G3a/A1, moderately decreased glomerular filtration rate (GFR) between 45-59 mL/min/1.73 square meter and albuminuria creatinine ratio less than 30 mg/g GERD (gastroesophageal reflux disease) Tick bite of abdominal wall Hypercholesterolemia Hypertension Surgical History History of heart artery stent History of colonoscopy History of inguinal hernia repair Family History Father CHF (congestive heart failure) CAD (coronary artery disease) CVD (cardiovascular disease) Mother CHF (congestive heart failure) CVD (cardiovascular disease) Diabetes Social History Housing: House Alcohol intake: former Patient Tobacco Use Status: Never used Tobacco e-Cigarette/Vaping Use: Never Used Second Hand Smoke Exposure: No service: No Current occupational status: retired Cognitive needs: No Hearing needs: No Vision needs: Yes Review of Systems Const All systems reviewed & are unremarkable except as noted in HPI and below Physical Exam Vital Signs: Last Vital Signs Pulse 64 12/26/23 10:04 BP 120/50 L 12/26/23 10:04 Pulse Ox 96 12/26/23 10:04 Oxygen Delivery Method Room Air 12/26/23 10:04 BMI result Body Mass Index 28.5 Const General: comfortable and no acute distress Orientation/consciousness: patient oriented x3 HEENT Head: Yes normocephalic Mouth: Normal oral and palatal mucosa present Eyes EOM: EOMs intact bilaterally Neck Neck: Yes supple Resp Auscultation: clear to auscultation bilaterally Cardio Jugular venous distension: no JVD Rate: regular rate GI Palpation (GI): Soft to palpation Auscultation: normal bowel sounds General: Yes no CVA tenderness Back/Spine/Pelvis Back: no CVA tenderness Skin General skin exam: no rashes or lesions noted Neuro General: patient oriented x3 and moves all extremities Extrem General: Yes no pedal edema Results Reviewed Nephrology Results: Hgb 18.2 g/dl (14.0-18.0) H 05/31/23 WBC 5.6 X10*3/uL (4.8-10.8) 05/31/23 Plt Count 106 X10*3/uL (160-400) L 05/31/23 Sodium 140 mmol/L (135-145) 12/19/23 Potassium 4.0 mmol/L (3.3-5.1) 12/19/23 Chloride 108 mmol/L (96-108) 12/19/23 Carbon Dioxide 26 mmol/L (22-29) 12/19/23 BUN 16 mg/dL (9-16) 12/19/23 Creatinine 1.08 mg/dL (0.5-1.4) 12/19/23 Calcium 9.3 mg/dL (8.4-10.2) 12/19/23 Urine Creatinine 91.46 mg/dL 05/31/23 Protein/Creatinin Ratio TNP 05/31/23 Assessment & Plan Assessment & Plan (1) Chronic kidney disease (CKD) stage G3a/A1, moderately decreased glomerular filtration rate (GFR) between 45-59 mL/min/1.73 square meter and albuminuria creatinine ratio less than 30 mg/g: Comment: Sees Dr. Richards Code(s): N18.31 - Chronic kidney disease, stage 3a Category: Medical (2) Hypertension: Code(s): I10 - Essential (primary) hypertension Category: Medical Qualifiers: Hypertension type: essential hypertension Qualified Code(s): I10 - Essential (primary) hypertension Plan George has CKD stage 3 and hypertension. His renal functions are stable. His blood pressure is at goal. He needs to lose some weight. He is on Jardiance. He most likely has some renovascular disease as well. He is tolerating JESUS inhibitor. He avoids nonsteroidal anti-inflammatories and maintain good hydration. I did not make any medication changes today. All questions answered. Follow-up blood work ordered and follow-up appointment given. Orders: Orders Blood Urea Nitrogen Today N18.31 - Chronic kidney disease, stage 3a Electrolytes Today N18.31 - Chronic kidney disease, stage 3a Creatinine Today N18.31 - Chronic kidney disease, stage 3a Protein Creatinine Ratio, Ur Today N18.31 - Chronic kidney disease, stage 3a Coding Level of Care Code Est Pt Level 4 (12275) Diagnoses Chronic kidney disease (CKD) stage G3a/A1, moderately decreased glomerular filtration rate (GFR) between 45-59 mL/min/1.73 square meter and albuminuria creatinine ratio less than 30 mg/g N18.31 Essential hypertension I10 Hypertension type: essential hypertension
[2023-12-26 10:04] VITALS: BP 120/50; PULSE 64; O2SAT 96; BMI 28.5
== END 2023-12-26 10:27 | disposition home or self-care (01) ==
PROVIDERS: PCP Internal Medicine; Visit Provider Internal Medicine Nephrology
DX: N18.31 Chronic kidney disease, stage 3a (principal); I10 Essential (primary) hypertension
CPT/HCPCS: 99214

== ENCOUNTER → 2023-12-26 09:57 | Outpatient (BNVA) | payer MEDICARE, OTHER, SELFPAY | PROVIDERS: PCP Internal Medicine; Visit Provider Internal Medicine Nephrology | DX: I12.9 Hypertensive chronic kidney disease with stage 1 through stage 4 chronic kidney disease, or unspecified chronic kidney disease (principal); N18.31 Chronic kidney disease, stage 3a | CPT/HCPCS: 99212 ==

== ENCOUNTER 2024-01-22 09:38 | Outpatient (AMB) | payer MEDICARE, OTHER, SELFPAY ==
--- NOTE | 2024-01-22 09:39 | MHC.PC.OV ---
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 Accompanied by: Self / Same As Patient Allergies lorazepam [From Ativan] Allergy (Mild, Verified 01/22/24 09:44) UNKNOWN Medication List - Last Reconciled 01/22/24 by Hiram Monge MD amlodipine 2.5 mg PO DAILY ascorbic acid (vitamin C) 500 mg PO DAILY aspirin (Adult Low Dose Aspirin) 81 mg PO DAILY azelaic acid 15% 1 appl topical BID blood sugar diagnostic ([employer] Ultra Test strips) As directed check the blood sugar once a day clotrimazole 1% 1 appl topical BID 4 weeks cyanocobalamin (vitamin B-12) 1,000 mcg PO DAILY cyclobenzaprine 5 mg PO BEDTIME PRN empagliflozin 25 mg PO DAILY 30 days ferrous sulfate 325 mg PO DAILY 90 days folic acid 1 mg PO DAILY glipizide 5 mg PO BID 90 days hydrocortisone 1% 1 appl topical BID PRN isosorbide mononitrate ER 30 mg PO DAILY isosorbide mononitrate ER 60 mg PO DAILY lancets ([employer] Delica Plus Lancet) 33 gauge miscellaneous DAILY 90 days lisinopril 2.5 mg PO DAILY metoprolol tartrate 100 mg PO BID omeprazole 40 mg PO DAILY rosuvastatin 40 mg PO DAILY 90 days Tobacco use date assessed: 09/04/23 Fall risk assessment: No Falls in past year Last assessed Fall Risk: 01/22/24 Dental Screening Dental Screen Date: 01/22/24 Did you have a dental visit in the last 12 months?: Yes Did you have a dental problem in the last 6 months where you did not have access to dental care?: No Was dental information given to patient?: Patient has dentist HPI DM,CAD HPI Details 83-year-old overweight male with controlled diabetes mellitus chronic kidney disease hypertension hypercholesterolemia coronary artery disease GERD and generalized anxiety disorder last seen in 09/08/2023. Review of the notes has been seen by the county engineer December 29 no evidence of diabetic retinopathy or macular edema mild cataracts noted. Patient does follow-up with Nephrology Shayna 6. Patient has seen Cardiology also in November 10 echocardiogram with preserved left ventricular function with mild AI patient had a cardiac catheterization done 11/08/2023. Moderate disease of the RCA mild LAD disease. [facility] Medical History Anemia On beta pedro at home Myocardial infarction Palpitations Pericarditis Coronary artery disease Pernicious anemia Type 2 diabetes mellitus with hyperglycemia Vitamin B12 deficiency Meningioma Chronic kidney disease (CKD) stage G3a/A1, moderately decreased glomerular filtration rate (GFR) between 45-59 mL/min/1.73 square meter and albuminuria creatinine ratio less than 30 mg/g GERD (gastroesophageal reflux disease) Tick bite of abdominal wall Hypercholesterolemia Hypertension Surgical History History of heart artery stent History of colonoscopy History of inguinal hernia repair Family History Father CHF (congestive heart failure) CAD (coronary artery disease) CVD (cardiovascular disease) Mother CHF (congestive heart failure) CVD (cardiovascular disease) Diabetes Social History Housing: House Alcohol intake: former Patient Tobacco Use Status: Never used Tobacco e-Cigarette/Vaping Use: Never Used Second Hand Smoke Exposure: No service: No Current occupational status: retired Cognitive needs: No Hearing needs: No Vision needs: Yes Questionnaire PHQ-9 Over the last 2 weeks, how often have you been bothered by any of the following problems? 1. Little interest or pleasure in doing things: not at all 2. Feeling down, depressed, or hopeless: not at all 3. Trouble falling or staying asleep, or sleeping too much: not at all 4. Feeling tired or having little energy: not at all 5. Poor appetite or overeating: not at all 6. Feeling bad about yourself - or that you are a failure or have let yourself or your family down: not at all 7. Trouble concentrating on things, such as reading the newspaper or watching television: not at all 8. Moving or speaking so slowly that other people could have noticed. Or the opposite - being so fidgety or restless that you have been moving around a lot more than usual: not at all 9. Thoughts that you would be better off or of hurting yourself in some way: not at all Total score: 0 Source: Developed by Drs. Jorge L Reyes, Jose De Jesus Oliva and colleagues, with an educational linus from [employer]. Thrive Questionnaire Date Thrive assessed: 01/22/24 I am a: Patient What is your living situation today?: I have a steady place to live Within the past 12 months, did the food you bought not last and you didn't have the money to get more?: Never true Within the past 12 months, did you worry whether your food would run out before you got money to buy more?: Never true Do you have trouble paying for medicines?: No Do you have trouble getting transportation to medical appointments?: No Do you have trouble paying your heating and electricity bill?: No Do you have trouble taking care of your child, family member or friend?: No Do you have trouble with day-to-day activities such as bathing, preparing meals, shopping, managing finances, etc.?: No Are you currently unemployed and looking for a job?: No Are you interested in more education?: No Please select the resources that you would like help with: None Currently or been in a relationship where the following occur: No concerns reported THRIVE Score: 0 AUDIT C Alcohol Use Questionnaire (AUDIT-C) 1. How often do you have a drink containing alcohol?: Never Total Score: 0 LIANNA-7 AMB Questionnaire LIANNA-7 Date LIANNA - 7 assessed: 01/22/24 Feeling nervous, anxious, or on edge: 0 = Not at all Not being able to stop or control worryin = Not at all Worrying too much about different things: 0 = Not at all Trouble relaxin = Not at all Being so restless that it is hard to sit still: 0 = Not at all Becoming easily annoyed or irritable: 0 = Not at all Feeling afraid as if something awful might happen: 0 = Not at all Total LIANNA-7 score (0-4 normal; 5-9 mild; 10-14 moderate; 15-21 severe): 0 Source: Developed by Yesi Moncada Kurt Kroenke and colleagues, with an educational linus from [employer]. Physical exam (Primary Care) Vital Signs: Last Vital Signs Pulse 62 01/22/24 09:43 BP 108/50 L 01/22/24 09:43 Pulse Ox 96 01/22/24 09:43 Oxygen Delivery Method Room Air 01/22/24 09:43 BMI result Body Mass Index 28.1 Tobacco/Smoking Status: Tobacco use Status Tobacco use date assessed 09/04/23 01/22/24 09:40 Patient Tobacco Use Status Never used Tobacco 01/22/24 09:40 e-Cigarette/Vaping Use Never Used 01/22/24 09:40 PHQ-9: PHQ-9 Score PHQ-9: Total score 0 01/22/24 09:54 Thrive Assessment: Date of Thrive Assessment Date Thrive assessed 01/22/24 01/22/24 09:40 Currently or been in a relationship where the following occur: No concerns reported Const General: alert; No acute distress Eyes Conjunctivae: conjunctivae normal Resp Auscultation: clear to auscultation bilaterally Cardio Rate: regular rate Rhythm: regular rhythm GI Inspection: Yes normal to inspection Extrem General: Yes normal to inspection and No edema Office Procedures Flu Questionnaire Does the patient have a severe egg allergy?: No Does the patient have severe life threatening allergies?: No Does the patient have a fever or illness today?: No Has the patient ever had Guillain-Ciales Syndrome?: No Has the patient ever had any past reaction to a flu shot?: No Results AMB Hemoglobin A1c AMB Hemoglobin A1c 5.9 % Last Edit by UMBERTO Moreno on 01/22/24 09:50 Immunizations Fluarix Triv [id number] (PF) 45 mcg (15 mcg x 3)/0.5 mL IM syringe Performing Provider: Hiram Monge MD [facility] Administered by: UMBERTO Moreno on 01/22/24 10:13 Dose Route Admin Location Dispensed Lot Number Expiration Date NDC [employer] 0.5 mL IM Left Deltoid 0.5 mL [id number] 10/18/24 [id number] [place] VIS Given Date VIS Provided VIS Publication Date 01/22/24 Single Vaccine 20 Eligibility Eligibility Date Funding Source Not [facility] Eligible 01/22/24 Private Results Reviewed Results Reviewed: Laboratory Last Values Hgb A1c (Clinic) 5.9 % (4.0-6.0) 01/22/24 09:48 Coding Level of Care Code Est Pt Level 4 (18393) Diagnoses Coronary artery disease involving [place] coronary artery of [place] heart without angina pectoris I25.10 Associated angina: without angina Coronary Disease-Associated Artery/Lesion type: [place] artery [place] vs. transplanted heart: [place] heart Type 2 diabetes mellitus with hyperglycemia, without long-term current use of insulin E11.65 Diabetes mellitus fci insulin use: without buttermaker helper use Essential hypertension I10 Hypertension type: essential hypertension Hypercholesterolemia E78.00 Gastroesophageal reflux disease without esophagitis K21.9 Esophagitis presence: without esophagitis Chronic kidney disease (CKD) stage G3a/A1, moderately decreased glomerular filtration rate (GFR) between 45-59 mL/min/1.73 square meter and albuminuria creatinine ratio less than 30 mg/g N18.31 Generalized anxiety disorder F41.1 Low back pain M54.50 Assessment & Plan Assessment & Plan (1) Coronary artery disease: Comment: PCI of LAD January 2008 MRI January 2008 repeat drug-eluting stent LAD August 2012 , positive stress test April 2020 medical management Code(s): I25.10 - Atherosclerotic heart disease of [place] coronary artery without angina pectoris Category: Medical Qualifiers: Associated angina: without angina Coronary Disease-Associated Artery/Lesion type: [place] artery [place] vs. transplanted heart: [place] heart Qualified Code(s): I25.10 - Atherosclerotic heart disease of [place] coronary artery without angina pectoris Plan: Control the cholesterol, weight, blood pressure, diabetes continue to follow-up with cardiology. Recent cardiac catheterization moderate RCA but mild LAD continue with aggressive risk reduction. (2) Type 2 diabetes mellitus with hyperglycemia: Comment: EYE and LASIK Code(s): E11.65 - Type 2 diabetes mellitus with hyperglycemia Category: Medical Qualifiers: Diabetes mellitus buttermaker helper insulin use: without fci use Qualified Code(s): E11.65 - Type 2 diabetes mellitus with hyperglycemia Plan: Decrease the amount of carbohydrate intake, pasta, bread, rice and potatoes are all sugar and that is aside from all the sweet stuff, remember that fruits are good but they are Sweet also. Hemoglobin A1c goal of less than 7.0 patient on Jardiance 25 mg once a day glipizide 5 mg twice a day up-to-date with eye exam and Podiatry (3) Hypertension: Code(s): I10 - Essential (primary) hypertension Category: Medical Qualifiers: Hypertension type: essential hypertension Qualified Code(s): I10 - Essential (primary) hypertension Plan: Continue with blood pressure medication. Decrease salt intake and exercise on metoprolol 100 mg twice a day lisinopril 2.5 mg once a day amlodipine 5 mg once a day. BP too low 98/50 taken - will decrease amlodipine to 2.5 mg and fir the BP still low will d/c (4) Hypercholesterolemia: Code(s): E78.00 - Pure hypercholesterolemia, unspecified Category: Medical Plan: Avoid fried foods, chicken skin, eggs, butter margarine, pastries and meat. Be it pork or beef they have a lot of cholesterol February last blood work up at goal. On rosuvastatin 40 mg once a day (5) GERD (gastroesophageal reflux disease): Code(s): K21.9 - Gastro-esophageal reflux disease without esophagitis Category: Medical Qualifiers: Esophagitis presence: without esophagitis Qualified Code(s): K21.9 - Gastro-esophageal reflux disease without esophagitis Plan: Avoid the foods that causes that usually spicy foods, tomato products, juices, coffee, soda and foods that your sensitive to. After eating do not lie down, allow 3-4 hours before in lie down. And keep the head of bed above 30 degrees to avoid the acid from going up. (6) Chronic kidney disease (CKD) stage G3a/A1, moderately decreased glomerular filtration rate (GFR) between 45-59 mL/min/1.73 square meter and albuminuria creatinine ratio less than 30 mg/g: Comment: Sees Dr. Richards Code(s): N18.31 - Chronic kidney disease, stage 3a Category: Medical Plan: Keep well hydrated avoid NSAIDs continue with blood pressure and diabetes control (7) Generalized anxiety disorder: Code(s): F41.1 - Generalized anxiety disorder Category: Medical Plan: Continue with present medication (8) Low back pain: Code(s): M54.50 - Low back pain, unspecified Category: Medical Plan: heat helps , will send for PT, muscle relaxant sent . if pain persist will do more work up Orders: Orders PT Evaluation and Treatment Today M54.50 - Low back pain, unspecified Complete Blood Count Auto Diff 3 Months E11.65 - Type 2 diabetes mellitus with hyperglycemia Comprehensive Met. Panel 3 Months E11.65 - Type 2 diabetes mellitus with hyperglycemia Creatinine Urine 3 Months E11.65 - Type 2 diabetes mellitus with hyperglycemia Lipid Panel 3 Months E11.65 - Type 2 diabetes mellitus with hyperglycemia, E78.00 - Pure hypercholesterolemia, unspecified Influenza [id number] Immunization Today Z23 - Encounter for immunization AMB Hemoglobin A1c Today E11.65 - Type 2 diabetes mellitus with hyperglycemia Free T4 (Free Thyroxine) 3 Months E11. - Type 2 diabetes mellitus with hyperglycemia Thyroid Stimulating Hormone 3 Months E11. - Type 2 diabetes mellitus with hyperglycemia Vitamin B12 and Folate 3 Months E11. - Type 2 diabetes mellitus with hyperglycemia Hemoglobin A1c 3 Months E11. - Type 2 diabetes mellitus with hyperglycemia B Type Natriuretic Peptide 3 Months E11.65 - Type 2 diabetes mellitus with hyperglycemia Medications: New cyclobenzaprine 5 mg PO BEDTIME PRN 20 tabs 0RF muscle spasm M54.50 - Low back pain, unspecified Fluarix Triv [id number] (PF) (flu vacc [id number] 6mos up(PF)) 0.5 mL IM ONCE 0.5 mL 0RF NS Z23 - Encounter for immunization Discontinued cyclobenzaprine Discontinued Reason: Duplicate 10 mg PO BEDTIME 14 tabs 0RF
[2024-01-22 09:43] VITALS: BP 108/50; PULSE 62; O2SAT 96; BMI 28.1
== END 2024-01-22 10:17 | disposition home or self-care (01) ==
PROVIDERS: PCP Internal Medicine; Visit Provider Internal Medicine
DX: I12.9 Hypertensive chronic kidney disease with stage 1 through stage 4 chronic kidney disease, or unspecified chronic kidney disease (principal); E11.65 Type 2 diabetes mellitus with hyperglycemia; N18.31 Chronic kidney disease, stage 3a; Z23 Encounter for immunization; I25.10 Atherosclerotic heart disease of native coronary artery without angina pectoris; E78.00 Pure hypercholesterolemia, unspecified; K21.9 Gastro-esophageal reflux disease without esophagitis; F41.1 Generalized anxiety disorder; M54.50 Low back pain, unspecified

== ENCOUNTER → 2024-01-22 09:38 | Outpatient (BNVA) | payer MEDICARE, OTHER, SELFPAY | PROVIDERS: PCP Internal Medicine; Visit Provider Internal Medicine | DX: Z23 Encounter for immunization (principal); I25.10 Atherosclerotic heart disease of native coronary artery without angina pectoris; E11.65 Type 2 diabetes mellitus with hyperglycemia; I10 Essential (primary) hypertension; E78.00 Pure hypercholesterolemia, unspecified; K21.9 Gastro-esophageal reflux disease without esophagitis; N18.31 Chronic kidney disease, stage 3a; F41.1 Generalized anxiety disorder; M54.50 Low back pain, unspecified | CPT/HCPCS: 83036; 90471; 90656; 99212 ==

== ENCOUNTER 2024-05-11 07:26 | Outpatient (REF) | payer MEDICARE, OTHER, SELFPAY ==
[2024-05-11 09:50] LABS: B Type Natriuretic Peptide 101 pg/mL (<100)
[2024-05-11 10:03] LABS: MANUAL DIFF FLAG NO
[2024-05-11 10:13] LABS: Basophils Absolute Auto 0.1 X10*3/uL (0.0-0.2); Basophils Percent Auto 0.9 % (0-2); Eosinophils Absolute Auto 0.2 X10*3/uL (0.0-0.4); Eosinophils Percent Auto 3.6 % (0-4); Hematocrit 49.3 % (42.0-52.0); Hemoglobin 16.9 g/dl (14.0-18.0); Imm Gran Abs Auto 0.01 X10*3/uL (0.00-0.03); Imm Gran Pct Auto 0.2 % (0.0-0.4); Lymphocytes Percent Auto 17.1 % (20-40); Mean Corpuscular HGB Conc 34.3 g/dl (31.0-36.0); Mean Corpuscular Hemoglobin 33.3 pg (27.0-33.0); Mean Corpuscular Volume 97.2 fL (80.0-98.0); Mean Platelet Volume 10.6 fL (9.4-12.4); Monocytes Absolute Auto 0.4 X10*3/uL (0.1-1.2); Monocytes Percent Auto 6.8 % (2-11); Neutrophils Absolute Auto 4.2 x10*3/uL (2.0-8.3); Neutrophils Percent Auto 71.4 % (45-73); Platelet Count 121 X10*3/uL (160-400); Red Blood Count 5.07 X10*6/uL (4.60-5.80); Red Cell Distribution Width 12.5 % (11.0-16.0); White Blood Count 5.9 X10*3/uL (4.8-10.8)
[2024-05-11 10:57] LABS: Estimated Average Glucose 137 mg/dL; Hemoglobin A1C 198.0886 umol/L; Hemoglobin A1c % 6.4 % (<6.0); Total Hemoglobin (HGBA1C) 4253.5499 umol/L
[2024-05-11 11:18] LABS: Alanine Aminotransferase 32 U/L (0-40); Albumin Level 4.2 g/dL (3.5-5.0); Alkaline Phosphatase 78 U/L (39-117); Anion Gap 12 (12-20); Aspartate Amino Transferase 31 U/L (5-37); Bilirubin Total 2.7 mg/dL (0.0-1.0); Blood Urea Nitrogen 20 mg/dL (9-16); Calcium 8.9 mg/dL (8.4-10.2); Carbon Dioxide 28 mmol/L (22-29); Chloride 105 mmol/L (96-108); Cholesterol 112 mg/dL (<200); Estimated Glomerular Filt Rate > 60; Glucose Random 129 mg/dL (60-115); HDL Cholesterol 36 mg/dL (>40); LDL Cholesterol Calculated 45 mg/dL (<100); Potassium 3.9 mmol/L (3.3-5.1); Sodium 141 mmol/L (135-145); Total Protein 7.1 g/dL (6.5-8.0); Triglycerides 155 mg/dL (<150)
[2024-05-11 11:22] LABS: Free T4 (Free Thyroxine) 1.07 ng/dL (0.71-1.85); Thyroid Stimulating Hormone 1.16 uIU/mL (0.32-4.0); Vitamin B12 533 pg/mL (200-900)
== END 2024-05-11 07:27 | disposition home or self-care (01) ==
LOC: HO.HMGCLDS 07:26
PROVIDERS: PCP Internal Medicine; Visit Provider Internal Medicine
DX: E11.65 Type 2 diabetes mellitus with hyperglycemia (principal); E78.00 Pure hypercholesterolemia, unspecified
CPT/HCPCS: 36415; 80053; 80061; 82570; 82607; 82746; 83036; 83880; 84439; 84443; 85025

== ENCOUNTER → 2024-05-14 09:28 | Outpatient (BNVA) | payer MEDICARE, OTHER, SELFPAY | PROVIDERS: PCP Internal Medicine; Visit Provider Internal Medicine | DX: I25.10 Atherosclerotic heart disease of native coronary artery without angina pectoris (principal); E11.65 Type 2 diabetes mellitus with hyperglycemia; I12.9 Hypertensive chronic kidney disease with stage 1 through stage 4 chronic kidney disease, or unspecified chronic kidney disease; E11.22 Type 2 diabetes mellitus with diabetic chronic kidney disease; N18.31 Chronic kidney disease, stage 3a; E78.00 Pure hypercholesterolemia, unspecified; F41.1 Generalized anxiety disorder; R09.81 Nasal congestion | CPT/HCPCS: 99212 ==

== ENCOUNTER 2024-05-17 11:26 | Outpatient (REF) | payer MEDICARE, OTHER, SELFPAY ==
--- NOTE | ~2024-05-17 | XR_ITS ---
CLINICAL HISTORY: R09.81 - Nasal congestion 4 view sinuses Comparison: None Findings: No air-fluid levels within the paranasal sinuses. There is mild mucoperiosteal thickening along the lateral aspect of the left mid maxillary sinus. Paranasal sinuses are unremarkable. No displaced fractures. IMPRESSION: Mild mucoperiosteal thickening along the lateral aspect of the left maxillary sinus. This document has been electronically signed by: Eyad Rain MD on 05/17/2024 17:25:14
--- OUTSIDE RECORDS SUMMARY | 2024-05-17 16:19 | XMS_ITS ---
Author Organization [facility] maura [place] Address [address] [place] [address] Care Team Providers Care Earth Mover Name Role Phone Hiram Monge Primary Care Provider Amy Abrams Unavailable [phone] Allergies Allergen (clinical drug ingredient) Drug/Non Drug Allergy documented on EMR Reaction Allergy Type Onset Date Status ibuprofen Advil kidney failure Drug Allergy Ac tive Aleve kidney failure Drug Allergy Ac tive lorazepam Ativan hyperactive Drug Allergy Activ e morphine Morphine Sulfate nausea Drug Allergy Active Motrin kidney failure Drug Allergy Ac tive REASON FOR VISIT At Risk Footcare, Painful Nail(s) aggrevated by shoes and causing difficulty standing/walking. Medications Medication SIG (Take, Route, Frequency, Duration) Notes Start Date End Date Status Omeprazole 40 MG 1 capsule 30 minutes before morning meal Orally Once a day for 30 day(s) Active Aspirin 81 81 MG 1 tablet Orally Once a day for 30 day(s) Active Metoprolol Tartrate 100 MG 1 tablet with food Orally Twice a day for 30 day(s) Active Jardiance 25 MG 1 tablet Orally Once a day for 30 days Active Ferrous Sulfate 325 (65 Fe) MG 1 tablet Orally Once a day for 30 day(s) Active Isosorbide Dinitrate 90mg Active Fenofibrate 160 MG 1 tablet Orally Once a day for 30 day(s) Not-Taking amLODIPine Benzoate 2.5mg Active Folic Acid 1 MG 1 tablet Orally Once a day for 30 day(s) Active Ascorbic Acid 500 MG 1 tablet Orally Onc e a day for 30 day(s) Active Lisinopril 2.5 MG 1 tablet Orally Once a day for 30 day(s) Active glipiZIDE 5 MG 1 tablet 30 minutes before breakfast Orally Once a day for 30 day(s) Active Rosuvastatin Calcium 40 MG 1 tablet Orally Once a day for 30 day(s) Active Social History Tobacco Use: Social History Observation Description Date Details (start date - stop date) Never Smoker NA - NA Tobacco Use/Smoking Question Answer Notes Are you a: nonsmoker Additional Findings: Tobacco Non-User Aggressive non-smoker Alcohol Screen Question Answer Notes Did you have a drink containing alcohol in the p ast year? No Points 0 Interpretation Negative Tobacco use other than smoking: Question Answer Notes Are you an other tobacco user? No Vital Signs Height 5 ft 10 in in 02/06/2024 Weight 200 lbs 02/06/2024 BMI 28.69 kg/m2 02/06/2024 Blood pressure systolic 90 mm Hg 02/06/20 24 Blood pressure diastolic 50 mm Hg 024 Encounters Encounter Location Date Provider Diagnosis [facility] [address] 02/06/2024 Amy Marshall Type 2 diabetes mellitus with diabetic peripheral angiopathy without gangrene E11.51 ; Atherosclerosis of [place] artery of both lower extremities, with unspecified presence of clinical manifestation I70.203 ; Pain in toe of left foot M79.675 ; Pain in toe of right foot M79.674 and Tinea unguium B35.1 Assessments Encounter Date Diagnosis (ICD Code) Assessment Notes Treatment Notes Treatment Clinical Notes Section Notes 02/06/2024 Type 2 diabetes mellitus with diabetic peripheral angiopathy without gangrene (ICD-10 - E11.51) 02/06/2024 Atherosclerosis of [place] artery of both lower extremities, with unspecified presence of clinical manifestation (ICD-10 - I70.203) 02/06/2024 Pain in toe of left foot (ICD-10 - M79.675) 02/06/2024 Pain in toe of right foot (ICD-10 - M79.674) 02/06/2024 Tinea unguium (ICD-10 - B35.1) Plan Of Treatment Next Appt Details Follow Up: 3 Months, Reason: Provider Name:Amy galindo, 07/16/2024 12:30:00 PM, [address] [place], [address], Procedure Notes * Category Sub-Category Detail Notes Debride Nail 6-10 Nail debridement Nail debridem ent performed extensively to reduce/remove overall nail length and girth, subungual debris, and necrotic tissue, by manual and electrical means with use of a nail nipper and/or dremel, to more viable healthy nail plate or bed tissue 6-10. Silver nitrate used for any petechial bleeding as necessary. Patient chooses, no pharmaceutical tx (96544) Keratoma Treatment Parring or Cutting o f Benign Hyperkeratotic Lesion(s) (-56) 2-4 Lesions - The Benign hyperkeratotic lesions, as described above were pared, and/or cut utilizing a sterile 15 blade, tissue nippers, and/or dremel - 63395, Q8 Progress Notes * George ALDRICHDOB:1940 (83 yo M)Acc No.[id number]:02/06/2024 Progress Note Patient:?George Aldrich Provider:?Amy Marshall DPM :1940???Age:83 Y???Sex:Male Addi e:02/06/2024 Address:[address] [place], [place] [address] Pcp:Hiram Monge Subjective: * Chief Complaints: * ???At Risk FootcarePainful N ail(s) aggrevated by shoes and causing difficulty standing/walking. * HPI: ???At Risk footcare:?Pt States Last PCP Visit:?Date?01/20/2024 * ROS:?General/Constitutional:?Nausea?denies.?Vomiting?denies.?Hunger Thirst?denies.?Loss appetite?denies.?Chills?denies.?Fatigue?denies.?Fever?denies.?Night Sweats?denies.?Unexplained weight loss?denies.?Unexplained weight gain?denies.?HEENTM:?Dentures?denies.?Dizziness?denies.?Glasses/contacts?denies.?Retinopathy?de nies.?Blurred/double vision?denies.?TMJ?denies.?Discharge/drainage?denies.?Implants?denies.?Sore throat?denies.?Dental implants?denies.?Hard of hearing ?denies.?Difficulty chewing/swallowing/speaking?denies.?Nose bleeds?denies.?Sore mouth?denies.?Respiratory:?On Oxygen?denies.?Pneumonia/pleurisy?denies.?Bronchitis?denies.?Emphysema?denies.?C oughing?denies.?Cough blood?denies.?Shortness of breath?denies.?Wheezing?denies.?Cardiovascular:?Pacemaker?denies.?MVP?denies.?WPW?denies.?CHF?denies.?Heart attack?denies.?Septal defect?denies.?Rapid beat?denies.?Chest pain ?denies.?Atrial Fib.?denies.?Murmur/Palpitations?denies.?Gastrointestinal:?Hemorrhoids?denies.?Stomach/Abdominal pain?denies.?Dark blood stool?denies.?Irritable bowel ?denies.?Constipation?denies.?Diarrhea?denies.?Hematology:?Swelling?denies.?Clots?denies.?Varicose Veins?denies.?Bruising?denies.?Bleeding problem?denies.?Genitourinary:?Blood urine?denies.?Frequent/Painfu/urination/bladder control?denies.?Kidney stones?denies.?Infection (UTI)?denies.?Nephropathy?denies.?sex trans dis (STD)?denies.?Prostate?denies.?Musculoskeletal:?Hammertoes?denies.?Bunions?denies.?Back Pain?denies.?Muscle Cramps/ Resting?denies.?Muscle cramps / walking?denies.?Generalized aches and pains?denies.?Weakness?denies.?Integ.:?[place]?denies.?Scars?denies.?Corns/calluses?denies.?Ingrown nails?denies.?Painful nails?denies.?Open Sores?denies.?Rashes?denies.?Neurologic:?Difficulty sleeping?denies.?Brain disorder?denies.?Numbness?denies.?Balance trouble?denies.?Confusion?denies.?Fainting/blackouts?denies.?Tingling?denies.?Tr emors?denies.? * Medical History:? * Surgical History:?hernia Cardiac Catherization 10/2023 * Hospitalization/Major Diagno stic Procedure:?[facility]- Tachycardia 04/2020 * Family History:?Mother: dece ased, diagnosed with Diabetic - NIDDM.?Father: , diagnosed with Unspecified heart disease.? * Social History:?Tobacco Use:?Tobacco Use/Smoking?Are you a:?nonsmoker ?Additional Findings: Tobacco Non-User?Aggressive non-smoker ?Tobacco use other than smoking?Are you an other tobacco user??No ???Drugs/Alcohol:?Drugs?Have you used drugs other than those for medical reasons in the past 12 months??No ?Alcohol Screen?Did you have a drink containing alcohol in the past year??No ?Points?0 ?Interpretation?Negative ???Miscellaneous:?Caffeine: yes, frequency: rarely. ?Children: yes. ?Exercise: yes, walking. ?Marital status: . 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 * Medications:?TakingamLODIPin e Benzoate , Notes: 2.5mgIsosorbide Dinitrate , Notes: 90mgAscorbic Acid 500 MG Tablet Chewable 1 tablet Orally Once a dayFerrous Sulfate 325 (65 Fe) MG Tablet 1 tablet Orally Once a dayJardiance 25 MG Tablet 1 tablet Orally Once a dayAspirin 81 81 MG Tablet Delayed Release 1 tablet Orally Once a dayOmeprazole 40 MG Capsule Delayed Release 1 capsule 30 minutes before morning meal Orally Once a dayMetoprolol Tartrate 100 MG Tablet 1 tablet with food Orally Twice a dayLisinopril 2.5 MG Tablet 1 tablet Orally Once a dayRosuvastatin Calcium 40 MG Tablet 1 tablet Orally Once a dayglipiZIDE 5 MG Tablet 1 tablet 30 minutes before breakfast Orally Once a dayFolic Acid 1 MG Tablet 1 tablet Orally Once a dayTaking amLODIPine Benzoate , Notes: 2.5mgTaking Isosorbide Dinitrate , Notes: 90mgTaking Ascorbic Acid 500 MG Tablet Chewable 1 tablet Orally Once a dayTaking Ferrous Sulfate 325 (65 Fe) MG Tablet 1 tablet Orally Once a dayTaking Jardiance 25 MG Tablet 1 tablet Orally Once a dayTaking Aspirin 81 81 MG Tablet Delayed Release 1 tablet Orally Once a dayTaking Omeprazole 40 MG Capsule Delayed Release 1 capsule 30 minutes before morning meal Orally Once a dayTaking Metoprolol Tartrate 100 MG Tablet 1 tablet with food Orally Twice a dayTaking Lisinopril 2.5 MG Tablet 1 tablet Orally Once a dayTaking Rosuvastatin Calcium 40 MG Tablet 1 tablet Orally Once a dayTaking glipiZIDE 5 MG Tablet 1 tablet 30 minutes before breakfast Orally Once a dayTaking Folic Acid 1 MG Tablet 1 tablet Orally Once a dayNot-Taking/PRNFenofibrate 160 MG Tablet 1 tablet Orally Once a dayMedication List reviewed and reconciled with the patientNot-Taking/PRN Fenofibrate 160 MG Tablet 1 tablet Orally Once a dayMedication List reviewed and reconciled with the patient * Allergies:?Advil: kidney lizet lureAleve: kidney failureMotrin: kidney failureMorphine Sulfate: nauseaAtivan: hyperactiveyes[Allergies Verified] Objective: * Vitals:?Ht: 5 ft 10 in, Wt: 200, BMI: 28.69, Shoe size: 10, BP: 90/50 mm Hg, BS: 112, Wt-k.72 kg. * ???Past Orders: ???Lab:HEMOGLOBIN A1C (GLYCO HEMOGLOBIN) (Order Date - 01/20/2024) (Collection Date - 01/20/2024) ? Value Reference Range ?TOTAL HEMOGLOBIN (HGBA1C) 5.9 * Examination: ???Ophthalmology Referral: ?DIABETES EYE EXAM?Vascular: ?DP PULSES(B):?0/4, B/L.?PT PULSES(B):?0/4, B/L.?CAPILLARY FILL TIME:?delayed, all digits, B/L.?TROPHIC CONDITION-TEXTURE/ELASTICITY/TURGOR/HAIR GROWTH(B):?decreased, B/L.?TEMPERTURE GRADIENT(C):?decreased, cool to cool, proximal to distal, B/L.?PIGMENTATION:?pale, B/L.?EDEMA(C):?absent, B/L.?Nails: ?NAILS are:? 1-5 B/L Elongated, overgrown, dystrophic, lytic, greater than 3mm thick, discolored and friable with crumbly malodorous subungual debris, with pain on palpation.?Dermatologic: ?SKIN FINDINGS:?Skin exam reveals Keratotic lesion(s) located at TA, T5 , Medial plantar.? Assessment: * Assessment: 1.?Type 2 diabetes mellitus with diabetic peripheral angiopathy without gangrene - E11.51 (Primary)?2.?Atherosclerosis of [place] artery of both lower extremities, with unspecified presence of clinical manifestation - I70.203?3.?Pain in toe of left foot - M79.675?4.?Pain in toe of right foot - M79.674?5.?Tinea unguium - B35.1? Plan: * Treatment: * Procedures:?Debride Nail 6-10:?Nail debridement?Nail debridement performed extensively to reduce/remove overall nail length and girth, subungual debris, and necrotic tissue, by manual and electrical means with use of a nail nipper and/or dremel, to more viable healthy nail plate or bed tissue 6-10. Silver nitrate used for any petechial bleeding as necessary. Patient chooses, no pharmaceutical tx (65841).?Keratoma Treatment:?Parring or Cutting of Benign Hyperkeratotic Lesion(s)?(-56) 2-4 Lesions - The Benign hyperkeratotic lesions, as described above were pared, and/or cut utilizing a sterile 15 blade, tissue nippers, and/or dremel - 87889, Q8.? * Procedure Codes:?52632 DEBRI DE NAIL, 6 OR MORE, Modifiers: XS 54321 TRIM SKIN LESIONS, 2 TO 4, Modifiers: XS , Q8 * Follow Up:?3 Months * Images: * Sign off status: Completed true * Provider:?Amy Marshall DPM Date:? Generated for Gregory ramirez/Fauzia/eTnadya on:?05/17/2024 04:19 PM EST History and Physical Notes * HPI (History of Present Illness) Category Sub-Category Detail Notes Category Not es At Risk footcare Pt States Last PCP Visit: Date: 4 Examination Category Sub-Category Detail Notes Category Not es Dermatologic SKIN FINDINGS: Skin exam reveal s Keratotic lesion(s) located at TA, T5 , Medial plantar Ophthalmology Referral DIABETES EYE EXAM Diabeti c Retinopathy Screening:: Yes Findings of Diabetic Eye Exam:: no retin opathy Vascular DP PULSES (B): 0/4, B/L PT PULSES (B): 0/4, B/L CAPILLARY FILL TIME: delayed, all digits , B/L TEMPERTURE GRADIENT (C): decreased, cool to cool, proximal to distal, B/L TROPHIC CONDITION-TEXTURE/ELASTICITY/TURGOR/HAIR GROWTH (B): decreased, B/L EDEMA (C): absent, B/L PIGMENTATION: pale, B/L Nails NAILS are: 1-5 B/L Elongate d, overgrown, dystrophic, lytic, greater than 3mm thick, discolored and friable with crumbly malodorous subungual debris, with pain on palpation
--- OUTSIDE RECORDS SUMMARY | 2024-05-17 16:19 | XMS_ITS ---
Author Organization [facility] maura [place] Address [address] [place] [address] Care Team Providers Care Paste Thinner Name Role Phone Hiram Monge Primary Care Provider Amy Abrams Unavailable [phone] Allergies Allergen (clinical drug ingredient) Drug/Non Drug [...] e a day for 30 day(s) Active Ferrous Sulfate 325 (65 Fe) MG 1 tablet Orally Once a day for 30 day(s) Active amLODIPine Benzoate 2.5mg Active Isosorbide Dinitrate 90mg Active Fenofibrate 160 MG 1 tablet Orally Once a day for 30 day(s) Not-Taking Rosuvastatin Calcium 40 MG 1 tablet Orally Once a day for 30 day(s) Active glipiZIDE 5 MG 1 tablet 30 minutes before breakfast Orally Once a day for 30 day(s) Active Folic Acid 1 MG 1 tablet Orally Once a day for 30 day(s) Active Metoprolol Tartrate 100 MG 1 tablet with food Orally Twice a day for 30 day(s) Active Lisinopril 2.5 MG 1 tablet Orally Once a day for 30 day(s) Active Jardiance 25 MG 1 tablet Orally Once a day for 30 days Active Aspirin 81 81 MG 1 tablet Orally Once a day for 30 day(s) Active Omeprazole 40 MG 1 capsule 30 minutes before morning meal Orally Once a day for 30 day(s) Active Encounters Encounter Location Date Provider Diagnosis [facility] [address] [address] 05/14/2024 Amy Marshall Plan Of Treatment Next Appt Details Provider Name:Amy Margaux galindo, 07/16/2024 12:30:00 PM, [address] [place] [address], [address], Progress Notes * George ALDRICHDOB:1940 (83 yo M)Acc No.[id number]:05/14/2024 Progress Note Patient:?ELINOR George Alvarado Provider:?Amy Marshall DPM :1940???Age:83 Y???Sex:Male Addi e:05/14/2024 Address:[address] [place], [place] [address] Pcp:Hiram Monge Subjective: * Chief Complaints: * ??? * Medical History:?Back,Hip,an d Knee pain, Diabetic, Heart disease, Measles, Mumps, Chicken pox. * Medications:?Taking amLODIPi ne Benzoate , Notes to Pharmacist: 2.5mg, Taking [...] 1 tablet Orally Once a day * Allergies:?Advil: kidney lizet lure, Aleve: kidney failure, Motrin: kidney failure, Morphine Sulfate: nausea, Ativan: hyperactive. Objective: * Vitals:? Assessment: Plan: * Treatment: * Images: * The named appointment provid er may or may not be the originator of this progress note, and it is not deemed complete until electronically signed by the appointment provider. Sign off status: Pending * Provider:?Amy Marshall DPM Date:? Generated for Gregory ramirez/Fauzia/Keren on:?05/17/2024 04:19 PM EST
--- OUTSIDE RECORDS SUMMARY | 2024-05-17 16:19 | XMS_ITS | Patient Health Record ---
Author Organization [facility] Address [address] [place] [address] Care Team Providers Care Real Estate Processor Name Role Phone Hiram Monge MD Primary Care Provider Jorge L Bhagat [phone] ALLERGIES Allergen (clinical drug ingredient) Drug/Non Drug Allergy documented on EMR Reaction Allergy Type Onset Date Status lorazepam Lorazepam Unknown Drug Allergy Active REASON FOR REFERRAL No Information MEDICATIONS Medication SIG (Take, Route, Frequency, Duration) Notes Start Date End Date Status glipiZIDE 5 MG 1 tablet Orally Once a day Active Lisinopril 2.5 MG 1 tablet Orally Once a day Active Rosuvastatin Calcium 40 MG TAKE 1 TABLET BY MOUTH EVERY DAY Oral for 90 Active Metoprolol Succinate ER 100 MG 1 tablet Orally Once a day Active Azelaic Acid 15 % External for 30 Active Folic Acid 1 MG TAKE 1 TABLET BY SHANA TH EVERY DAY Oral for 90 Active Azithromycin 250 MG Oral for 5 Active Cyanocobalamin 1000 MCG 1 tablet Orally Once a day for 30 day(s) Active Doxycycline Hyclate 100 MG TAKE 2 TABLET S BY MOUTH EVERY DAY Oral for 1 Active Omeprazole 40 MG 1 capsule Orally Onc e a day Active Aspir-81 81 MG 1 tablet Orally Once a day Active IMMUNIZATIONS Vaccine Route Administration Date Status Comme nts Influenza Unknown 12/20/2020 Administered SOCIAL HISTORY Sex Assigned At : Social History Observation Description Sex Assigned At Unknown PROBLEMS Problem Type ICD Code Onset Dates Problem Status W/U Status Risk SNOMED Code Notes Problem Encounter for screening for malignant neoplasm of colon (Z12.11) Active confirmed 134481972 Problem History of adenomatous polyp of colon (Z86.010) Active confirmed 940920680 Problem Long-term use of aspirin therapy (Z79.82) Active confirmed 377521695 Problem Diverticulosis of colon (K57.30) Active confirmed Diverticulosi s of colon (681701494) PLAN OF TREATMENT Pending Test Test Name Order Date Pathology 08/15/2021 Future Test Test Name Order Date COLONOSCOPY 01/11/2014 COLONOSCOPY 07/10/2021 Insurance Providers Payer Name Payer Address Payer Phone Subscriber Number Group Number Insured Name Patient Relationship to Insured Coverage Start Date Coverage End Date MEDICARE OF [place] [address] [place] [address] [id number] YOHAN ALDRICH Self - patient is the insured [facility] INDEMNITY [address] [place] [address] [id number] YOHAN ALDRICH Self - patient is the insured MEDICAL (GENERAL) HISTORY Medical History History ICD Code NIDDM PA-2007--stents placed in 2007 and 3 Chronic kidney disease--sees Dr. Richards NegAllyn colonoscopy in 07/[address] [facility] [address] [place]--had previous tubular adenomas removed in the Hyperlipidemia Denies PA,CVA,Lung disease,renal disease Hypertension GERD Vitamin B12 deficiency Surgical History Surgery Date(Month/Year) Right inguinal hernia
--- OUTSIDE RECORDS SUMMARY | 2024-05-17 16:19 | XMS_ITS | Clinical Summary ---
Author Organization [facility] Address [address] [place] [place] [address] Phone Care Team Providers Care Supervisor Plasma Name Role Phone Hiram Monge MD Primary Care Provider [phone] Allergies Active Allergy Reactions Criticality Noted Date Comments Lorazepam Anxiety Low 05/19/2015 Medications aspirin (ST SYD) 81 MG EC tablet Take 1 tablet by mouth 1 (one) time each day Active cyanocobalamin (VITAMIN B-12) 1000 MCG tablet Take 1 tablet by mouth 1 (one) time each day Active folic acid (FOLVITE) 1 MG tablet Take 1 mg by mouth 1 (one) time each day Active lisinopril (PRINIVIL,ZESTR IL) 2.5 MG tablet Take 1 tablet by mouth 1 (one) time each day Active metoprolol tartrate (LOPRESSOR) 100 MG tablet Take 1 tablet by mouth 2 (two) times a day Active nitroglycerin (NITROSTAT) 0.[address] 1 tablet under the tongue if needed Active omeprazole (PriLOSEC) [address] capsule Take 1 capsule by mouth 1 (one) time each day Active rosuvastatin (CRESTOR) 40 MG tablet Take 1 tablet by mouth 1 (one) time each day Active ferrous sulfate 325 (65 Fe) MG tablet Take 1 tablet by mouth 1 (one) time each day 05/29/2022 Active ascorbic acid (VITAMIN C) 500 MG tablet Take 500 mg by mouth 1 (one) time each day 05/10/2022 Active Jardiance 10 MG tablet Take 10 mg by mouth 1 (one) time each day 06/15/2022 Active glipiZIDE (GLUCOTROL) 5 MG tablet Take 5 mg by mouth in the morning and 5 mg in the evening. TAKE 1 TABLET BY MOUTH TWICE A DAY FOR 90 DAYS. 04/22/2022 Active Active Problems Problem Noted Date Diagnosed Date Atrial paroxysmal tachycardia 12/27/2021 Chest pain 12/27/2021 Coronary arteriosclerosis 12/27/2021 History of adenomatous polyp of colon 12/27/2021 Hyperlipidemia 12/27/2021 Screening for malignant neoplasm of colon 2021 Type 2 diabetes mellitus with peripheral angiopa thy 12/27/2021 Hypertension 12/27/2021 Hypertensive disorder 02/07/2021 Stage 3a chronic kidney disease 07/21/2020 Hypertensive chronic kidney disease, unspecified, with chronic kidney disease stage I through stage IV, or unspecified 07/21/2020 Immunizations Name Administration Dates Next Due Pfizer SARS-COV-2 06/13/2020 Pneumococcal Conjugate 13-Valent 05/19/2015 Pneumococcal Polysaccharide 01/19/2011 Family History Medical History Relation Comments Heart disease Father Hypertension Father Stroke Father Diabetes Mother Relation Status Comments Father Mother Social History Tobacco Use Types Packs/Day Years Used Date Smoking Tobacco: Never Smokeless Tobacco: Never Tobacco Cessation:Counseling Given: Not Answered Sex and Gender Information Value Date Recorded Sex Assigned at Not on file Legal Sex Male 5:02 PM EST Gender Identity Not on file Sexual Orientation Not on file Last Filed Vital Signs Vital Sign Reading Time Taken Comments Blood Pressure 110/60 01/08/2023 2:27 PM EDT Pulse 60 01/08/2023 2:27 PM EDT Temperature - - Respiratory Rate - - Oxygen Saturation 98% 02/07/2021 3:27 PM EDT Inhaled Oxygen Concentration - - Weight 92.1 kg (203 lb) 07/03/2022 12:26 PM EDT Height 177.8 cm (5' 10 ) 07/21/2019 12:00 PM EDT Body Mass Index 29.13 07/21/2019 12:00 PM EDT Plan of Treatment Health Maintenance Due Date Last Done Comments Diabetes: Hemoglobin A1C 12/27/2021 Diabetes: Ophthalmology Exam 12/27/2021 Diabetes: Pedal Pulse Checked 12/27/2021 Diabetes: Sensory Foot Exam 12/27/2021 Diabetes: Visual Foot Exam 12/27/2021 Influenza Vaccine (#1) 2023 Pneumococcal Vaccine: 65+ Years Completed 05/19/2015, 05/19/2015, 01/19/2011 Hepatitis B Vaccine Aged Out No longe r eligible based on patient's age to complete this topic Insurance [facility] MEDICARE [facility] MEDICARE Care Teams Supervisor Plasma Relationship Specialty Start Date End Date Hiram Monge MD [address] [place] PCP - General 05/01/20
--- OUTSIDE RECORDS SUMMARY | 2024-05-17 16:19 | XMS_ITS ---
Author Organization [facility] Hanna lorenzo Dugger Address [address] [place] [address] Care Team Providers Care Drafter Name Role Phone Hiram Monge Primary Care Provider Amy Abrams [phone] REASON FOR VISIT rs from 05/14/24 Encounters Encounter Location Date Provider Diagnosis [address] [address] 05/12/2024 Amy Marshall Plan Of Treatment Next Appt Details Provider Name:Amy galindo, 07/16/2024 12:30:00 PM, [address] [place], [address], Progress Notes * George ALDRICHDOB:1940 (83 yo M)Acc No.[id number]:05/12/2024 Patient:?George ALDRICH :1940???Age:83 Y???Sex:Male Address:[address] [place] [address] * true * Date:? Generated for Printi ng/Faxing/eTransmitting on:?05/17/2024 04:19 PM EST
--- OUTSIDE RECORDS SUMMARY | 2024-05-17 16:19 | XMS_ITS | Patient Health Record ---
Author Organization [facility] [place] Address [address] [facility] [place] [address] Care Team Providers Care Physician In Private Practice Name Role Phone Hiram Monge Primary Care Provider Amy Abrams Unavailable [phone] Allergies Allergen (clinical drug ingredient) Drug/Non Drug Allergy documented on EMR Reaction Allergy Type Onset Date Status ibuprofen Advil kidney failure Drug Allergy Ac tive Aleve kidney failure Drug Allergy Ac tive lorazepam Ativan hyperactive Drug Allergy Activ e morphine Morphine Sulfate nausea Drug Allergy Active Motrin kidney failure Drug Allergy Ac tive Results Component Value Reference Range Notes HEMOGLOBIN A1C (GLYCOHEMOGLO BIN) Reviewed date:08/06/2023 10:58:56 AM Interpretation: Performing Lab: Notes/Report: HEMOGLOBIN A1C % (HH) 6.8 HEMOGLOBIN A1C (GLYCOHEMOGLO BIN) Reviewed date:02/06/2024 09:18:23 AM Interpretation: Performing Lab: Notes/Report: TOTAL HEMOGLOBIN (HGBA1C) 5.9 Reason For Referral No Information Medications Medication SIG (Take, Route, Frequency, Duration) [...] 30 day(s) Active amLODIPine Benzoate 2.5mg Active Folic Acid 1 MG 1 tablet Orally Once a day for 30 day(s) Active Isosorbide Dinitrate 90mg Active Fenofibrate 160 MG 1 tablet Orally Once a day for 30 day(s) Not-Taking Omeprazole 40 MG 1 capsule 30 minutes before morning meal Orally Once a day for 30 day(s) Active Metoprolol Tartrate 100 MG 1 tablet with food Orally Twice a day for 30 day(s) Active Lisinopril 2.5 MG 1 tablet Orally Once a day for 30 day(s) Active Immunizations Vaccine Route Administration Date Status Comme nts COVID-19 Pfizer BioNTech Vaccine Unknown 01/12/2021 Administered #1 05/23/20 #2 06/13/20 Influenza Unknown 02/17/2020 Administered Influenza Unknown 12/20/2021 Administered Influenza Unknown 02/19/2023 Administered Social History Tobacco Use: Social History Observation [...] Are you an other tobacco user? 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 gangrene (E11.51) Active confirmed Problem [id number] Atherosclerosis of [place] artery of both lower extremities, with unspecified presence of clinical manifestation (I70.203) Active confirmed Vital Signs Blood pressure diastolic 50 mm Hg 02/06/2024 Height 5 ft 10 in in 02/06/2024 Blood pressure systolic 90 mm Hg 02/06/2024 Weight 200 lbs 02/06/2024 BMI 28.69 kg/m2 02/06/2024 Encounters Encounter Location Date [facility] [address] [place] [address] 08/06/2023 Amy Marshall Type 2 diabetes mellitus with diabetic peripheral angiopathy without gangrene E11.51 ; Atherosclerosis of [place] artery of both lower extremities, with unspecified presence of clinical manifestation I70.203 ; Pain in toe of left foot M79.675 ; Pain in toe of right foot M79.674 and Tinea unguium B35.[address] [address] 11/07/2023 Amy Marshall Type 2 diabetes mellitus with diabetic peripheral angiopathy without gangrene E11.51 ; Atherosclerosis of [place] artery of both lower extremities, with unspecified presence of clinical manifestation I70.203 ; Pain in toe of left foot M79.675 ; Pain in toe of right foot M79.674 and Tinea unguium B35.[address] [address] 02/06/2024 Amy Joanna Type 2 diabetes mellitus with diabetic peripheral angiopathy without gangrene E11.51 ; Atherosclerosis of [place] artery of both lower extremities, with unspecified presence of clinical manifestation I70.203 ; Pain in toe of left foot M79.675 ; Pain in toe of right foot M79.674 and Tinea unguium B35.[address] [address] 05/12/2024 Amy Rushjosie Assessments Encounter Date Diagnosis (ICD Code) Assessment Notes Treatment Notes Treatment Clinical Notes Section Notes 08/06/2023 Type 2 diabetes mellitus with diabetic peripheral angiopathy without gangrene (ICD-10 - E11.51) 11/07/2023 Type 2 diabetes mellitus with diabetic peripheral angiopathy without gangrene (ICD-10 - E11.51) 02/06/2024 Type 2 diabetes mellitus with diabetic peripheral angiopathy without gangrene (ICD-10 - E11.51) 02/06/2024 Atherosclerosis of [place] artery of both lower extremities, with unspecified presence of clinical manifestation (ICD-10 - I70.203) 11/07/2023 Atherosclerosis of [place] artery of both lower extremities, with unspecified presence of clinical manifestation (ICD-10 - I70.203) 08/06/2023 Atherosclerosis of [place] artery of both lower extremities, with unspecified presence of clinical manifestation (ICD-10 - I70.203) 08/06/2023 Pain in toe of left foot (ICD-10 - M79.675) 11/07/2023 Pain in toe of left foot (ICD-10 - M79.675) 02/06/2024 Pain in toe of left foot (ICD-10 - M79.675) 02/06/2024 Pain in toe of right foot (ICD-10 - M79.674) 11/07/2023 Pain in toe of right foot (ICD-10 - M79.674) 08/06/2023 Pain in toe of right foot (ICD-10 - M79.674) 08/06/2023 Tinea unguium (ICD-10 - B35.1) 11/07/2023 Tinea unguium (ICD-10 - B35.1) 02/06/2024 Tinea unguium (ICD-10 - B35.1) Plan Of Treatment Next Appt Details Provider Name:Amy galindo, 07/16/2024 12:30:00 PM, [address] [place], [address], Insurance Providers Payer Name Payer Address Payer Phone Subscriber Number Group Number Insured Name Patient Relationship to Insured Coverage Start Date Coverage End Date Medicare National Govt Sv[employer] Inc [address] [place] [address] [id number] George Arshad Self - patient is the insured [facility] [address] [place] [address] [id number] Jeancarlos George Self - patient is the insured Medical (General) History Medical History History ICD Code Back,Hip,and Knee pain Diabetic Heart disease Measles Mumps Chicken pox Surgical History Surgery Date(Month/Year) hernia Cardiac Catherization 10/2023 Hospitalization History Reason Date(Month/Year) [facility]- Tachycardia 04/2020
== END 2024-05-17 11:27 | disposition home or self-care (01) ==
LOC: HO.XRAY 11:26
PROVIDERS: PCP Internal Medicine; Visit Provider Internal Medicine
DX: R09.81 Nasal congestion (principal)
CPT/HCPCS: 70220

== ENCOUNTER → 2024-05-17 11:30 | Outpatient (BNV) | payer MEDICARE, OTHER, SELFPAY | PROVIDERS: PCP Internal Medicine; Visit Provider Radiology Diagnostic Radiology | DX: R09.81 Nasal congestion (principal) | CPT/HCPCS: 70220 ==

== ENCOUNTER 2024-06-16 08:30 | Outpatient (REF) | payer MEDICARE, OTHER, SELFPAY ==
--- OUTSIDE RECORDS SUMMARY | 2024-06-16 09:02 | XMS_ITS ---
Author Organization [facility] aHnna lorenzo [place] Address [address] [place] [address] Care Team Providers Care American Indian Studies Professor Name Role Phone Hiram Monge Primary Care Provider Amy Abrams [phone] REASON FOR VISIT rs from 05/14/24 Encounters Encounter Location Date Provider Diagnosis [address] [address] 05/12/2024 Amy Marshall Plan Of Treatment Next Appt Details Provider Name:Amy galindo, 07/16/2024 12:30:00 PM, [address] [place], [address], Progress Notes * George ALDRICHDOB:1940 (83 yo M)Acc No.[id number]:05/12/2024 Patient:?George ALDRICH :1940???Age:83 Y???Sex:Male Address:[address] [place] [address] * true * Date:? Generated for Printi ng/Fahelenag/eTransmitting on:?06/16/2024 09:02 AM EST
--- OUTSIDE RECORDS SUMMARY | 2024-06-16 09:02 | XMS_ITS ---
Author Organization [facility] [place] Address [address] [place] [address] Care Team Providers Care Independent Marketing Consultant Name Role Phone Hiram Monge Primary Care Provider Amy Abrams Unavailable [phone] Allergies Allergen (clinical drug ingredient) Drug/Non Drug [...] 024 Encounters Encounter Location Date Provider Diagnosis [facility] [address] 02/06/2024 Amy Marshall Type 2 diabetes mellitus with diabetic peripheral angiopathy without gangrene E11.51 ; Atherosclerosis of [place] artery of both lower extremities, with unspecified [...] gangrene (ICD-10 - E11.51) 02/06/2024 Atherosclerosis of [place] artery of both lower extremities, with unspecified presence of clinical manifestation (ICD-10 - I70.203) 02/06/2024 Pain in toe of left foot (ICD-10 - M79.675) 02/06/2024 Pain in toe of right foot (ICD-10 - M79.674) 02/06/2024 Tinea unguium (ICD-10 - B35.1) Plan Of Treatment Next Appt Details Follow Up: 3 Months, Reason: Provider Name:Amy galindo, 07/16/2024 12:30:00 PM, [address] [place], [address], Procedure Notes * Category Sub-Category Detail Notes [...] as necessary. Patient chooses, no pharmaceutical tx (99141) Keratoma Treatment Parring or Cutting o f Benign Hyperkeratotic Lesion(s) (-56) 2-4 Lesions - The Benign hyperkeratotic lesions, as described above were pared, and/or cut utilizing a sterile 15 blade, tissue nippers, and/or dremel - 94796, Q8 Progress Notes * George ALDRICHDOB:1940 (83 yo M)Acc No.[id number]:02/06/2024 Progress Note Patient:?George Aldrich Provider:?Amy Marshall DPM :1940???Age:83 Y???Sex:Male Addi e:02/06/2024 Address:[address] [place], [place] [id number] Pcp:Hiram Monge Subjective: * Chief Complaints: * [...] yes, walking. ?Marital status: . 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 * Medications:?TakingamLODIPin e Benzoate , Notes: [...] 5.9 * Examination: ???Ophthalmology Referral: ?DIABETES EYE EXAM?Diabetic Retinopathy Screening:?Yes ?Findings of Diabetic Eye Exam:?no retinopathy?Vascular: ?DP PULSES(B):?0/4, B/L.?PT PULSES(B):?0/4, B/L.?CAPILLARY FILL TIME:?delayed, [...] angiopathy without gangrene - E11.51 (Primary)?2.?Atherosclerosis of [place] artery of both lower extremities, with unspecified [...] as necessary. Patient chooses, no pharmaceutical tx (16131).?Keratoma Treatment:?Parring or Cutting of Benign Hyperkeratotic Lesion(s)?(-56) 2-4 Lesions - The Benign hyperkeratotic lesions, as described above were pared, and/or cut utilizing a sterile 15 blade, tissue nippers, and/or dremel - 84174, Q8.? * Procedure Codes:?82623 DEBRI DE NAIL, 6 OR MORE, Modifiers: XS 22177 TRIM SKIN LESIONS, 2 TO 4, Modifiers: XS , Q8 * Follow Up:?3 Months * Images: * Sign off status: Completed true * Provider:?Amy Marshall DPM Date:? Generated for Gregory ramirez/Fauzia/Keren on:?06/16/2024 09:01 AM EST History and Physical Notes * HPI [...]
--- OUTSIDE RECORDS SUMMARY | 2024-06-16 09:03 | XMS_ITS | Clinical Summary ---
Author Organization [facility] Address [address] [place] [address] Phone Care Team Providers Care Ranger Aide Name Role Phone Hiram Monge MD Primary Care Provider [phone] Allergies Active Allergy Reactions Criticality Noted Date [...] patient's age to complete this topic Insurance [facility] MEDICARE [facility] MEDICARE Care Teams Ranger Aide Relationship Specialty Start Date End Date Hiram Monge MD [address] [place] PCP - General 05/01/20
--- OUTSIDE RECORDS SUMMARY | 2024-06-16 09:03 | XMS_ITS | Patient Health Record ---
Author Organization [facility] [place] Address [address] [place] [address] Care Team Providers Care Veneer Clipper Name Role Phone Hiram Monge Primary Care Provider Amy Abrams Unavailable [phone] Allergies Allergen (clinical drug ingredient) Drug/Non Drug [...] Type 2 diabetes mellitus with peripheral angiopathy (962379611) Type 2 diabetes mellitus with diabetic peripheral angiopathy without gangrene (E11.51) Active confirmed Problem [id number] Atherosclerosis of [place] artery of both lower extremities, with unspecified presence of clinical manifestation (I70.203) Active confirmed Vital Signs Blood pressure diastolic 50 mm Hg 02/06/2024 Height 5 ft 10 in in 02/06/2024 Blood pressure systolic 90 mm Hg 02/06/2024 Weight 200 lbs 02/06/2024 BMI 28.69 kg/m2 02/06/2024 Encounters Encounter Location Date [facility] [address] [place] [address] 08/06/2023 Amy Marshall Type 2 diabetes mellitus with diabetic peripheral angiopathy without gangrene E11.51 ; Atherosclerosis of [place] artery of both lower extremities, with unspecified presence of clinical manifestation I70.203 ; Pain in toe of left foot M79.675 ; Pain in toe of right foot M79.674 and Tinea unguium B35.[address] [address] 11/07/2023 Amy Marshall Type 2 diabetes mellitus with diabetic peripheral angiopathy without gangrene E11.51 ; Atherosclerosis of [place] artery of both lower extremities, with unspecified presence of clinical manifestation I70.203 ; Pain in toe of left foot M79.675 ; Pain in toe of right foot M79.674 and Tinea unguium B35.[address] [address] 02/06/2024 Amy Joanna Type 2 diabetes mellitus with diabetic peripheral angiopathy without gangrene E11.51 ; Atherosclerosis of [place] artery of both lower extremities, with unspecified presence of clinical manifestation I70.203 ; Pain in toe of left foot M79.675 ; Pain in toe of right foot M79.674 and Tinea unguium B35.[address] [address] 05/12/2024 Amy Rushjosie Assessments Encounter Date Diagnosis (ICD Code) Assessment Notes Treatment Notes Treatment Clinical Notes Section Notes 08/06/2023 Type 2 diabetes mellitus with diabetic peripheral angiopathy without gangrene (ICD-10 - E11.51) 11/07/2023 Type 2 diabetes mellitus with diabetic peripheral angiopathy without gangrene (ICD-10 - E11.51) 02/06/2024 Type 2 diabetes mellitus with diabetic peripheral angiopathy without gangrene (ICD-10 - E11.51) 02/06/2024 Atherosclerosis of [place] artery of both lower extremities, with unspecified presence of clinical manifestation (ICD-10 - I70.203) 11/07/2023 Atherosclerosis of [place] artery of both lower extremities, with unspecified presence of clinical manifestation (ICD-10 - I70.203) 08/06/2023 Atherosclerosis of [place] artery of both lower extremities, with unspecified [...] Provider Name:Amy galindo, 07/16/2024 12:30:00 PM, [address] [place], [address], Insurance Providers Payer Name Payer Address Payer Phone Subscriber Number Group Number Insured Name Patient Relationship to Insured Coverage Start Date Coverage End Date Medicare National Govt Svcs Inc [address] [facility] [place] [address] [id number] George Arshad Self - patient is the insured [facility] [address] [place] [address] [id number] Jeancarlos George Self - patient is the insured Medical (General) History Medical History History ICD Code Back,Hip,and Knee pain Diabetic Heart disease Measles Mumps Chicken pox Surgical History Surgery Date(Month/Year) hernia Cardiac Catherization 10/2023 Hospitalization History Reason Date(Month/Year) [facility]- Tachycardia 04/2020
--- OUTSIDE RECORDS SUMMARY | 2024-06-16 09:03 | XMS_ITS | Patient Health Record ---
Author Organization [facility] Address [address] [place] [address] Care Team Providers Care Home Economics Teacher Name Role Phone Hiram Monge MD Primary Care Provider Jorge L Bhagat [phone] ALLERGIES Allergen (clinical drug ingredient) Drug/Non Drug [...] malignant neoplasm of colon (Z12.11) Active confirmed [id number] Problem History of adenomatous polyp of colon (Z86.010) Active confirmed 878326484 Problem Long-term use of aspirin therapy (Z79.82) Active confirmed 332957919 Problem Diverticulosis of colon (K57.30) Active confirmed Diverticulosi s of colon (519329941) PLAN OF TREATMENT Pending Test Test Name Order Date Pathology 08/15/2021 Future Test Test Name Order Date COLONOSCOPY 01/11/2014 COLONOSCOPY 07/10/2021 Insurance Providers Payer Name Payer Address Payer Phone Subscriber Number Group Number Insured Name Patient Relationship to Insured Coverage Start Date Coverage End Date MEDICARE OF [place] [address] [place] [address] [id number] YOHAN ALDRICH Self - patient is the insured [facility] [address] [place] [address] [id number] YOHAN ALDRICH Self - patient is the insured MEDICAL (GENERAL) HISTORY Medical History History ICD Code NIDDM [place]-2007--stents placed in 2007 and 3 Chronic kidney disease--sees Dr. Richards NegAllyn colonoscopy in 07/2003 w [facility] Dr. Salinas--had previous tubular adenomas removed in the Hyperlipidemia Denies [place],CVA,Lung disease,renal disease Hypertension GERD Vitamin B12 deficiency Surgical History Surgery Date(Month/Year) Right inguinal hernia
[2024-06-16 10:18] LABS: Anion Gap 12 (12-20); Blood Urea Nitrogen 16 mg/dL (9-16); Carbon Dioxide 26 mmol/L (22-29); Chloride 108 mmol/L (96-108); Estimated Glomerular Filt Rate > 60; Potassium 4.1 mmol/L (3.3-5.1); Sodium 142 mmol/L (135-145)
[2024-06-16 14:16] LABS: Creatinine Urine 73.18 mg/dL; Total Protein Urine Random < 7 mg/dL (<12)
== END 2024-06-16 08:31 | disposition home or self-care (01) ==
LOC: HO.HMGCLDS 08:30
PROVIDERS: PCP Internal Medicine; Visit Provider Internal Medicine Nephrology
DX: N18.31 Chronic kidney disease, stage 3a (principal)
CPT/HCPCS: 36415; 80051; 82565; 82570; 84156; 84520

== ENCOUNTER 2024-06-25 09:31 | Outpatient (AMB) | payer MEDICARE, OTHER, SELFPAY ==
--- NOTE | 2024-06-25 09:38 | HO.NEPHOV ---
Vital Signs 06/25/24 09:39 Height 5 ft 10 in Weight 193 lb 6 oz BMI 27.7 BP 102/50 L Blood Pressure Location Lt brachial Position Sitting Pulse 64 Pulse Source Pulse Oximeter Pulse Oximetry (%) 96 Oxygen Delivery Method Room Air Intake Visit Reasons: 6 mon follow up- Number not in service Mounting Machine Operator Required: No Accompanied by: Self / Same As Patient Allergies lorazepam [From Ativan] Allergy (Mild, Verified 06/25/24 09:39) UNKNOWN HPI Comments Details: I had the privilege of seeing George in follow-up of his chronic kidney disease and hypertension. He has history of coronary artery disease and had undergone stenting in the past. He recently had left arm pain and had cardiac cath- WNL. He is diabetic as well. His blood sugars are well controlled. He is on Jardiance. He is tolerating JESUS inhibitor. He is closely followed up by his architectural technologist. He is on statins. He does not have any myalgia. He denies chest pain, shortness of breath, orthostatic symptoms, palpitation, pedal edema or urinary symptoms. He does not take any nonsteroidal anti-inflammatories. His renal functions have been stable. [facility] Medical History Anemia On beta pedro at home Myocardial infarction Palpitations Pericarditis Coronary artery disease Pernicious anemia Type 2 diabetes mellitus with hyperglycemia Vitamin B12 deficiency Meningioma Chronic kidney disease (CKD) stage G3a/A1, moderately decreased glomerular filtration rate (GFR) between 45-59 mL/min/1.73 square meter and albuminuria creatinine ratio less than 30 mg/g GERD (gastroesophageal reflux disease) Tick bite of abdominal wall Hypercholesterolemia Hypertension Surgical History History of heart artery stent History of colonoscopy History of inguinal hernia repair Family History Father CHF (congestive heart failure) CAD (coronary artery disease) CVD (cardiovascular disease) Mother CHF (congestive heart failure) CVD (cardiovascular disease) Diabetes Social History Housing: House Alcohol intake: former Patient Tobacco Use Status: Never used Tobacco e-Cigarette/Vaping Use: Never Used Second Hand Smoke Exposure: No service: No Current occupational status: retired Cognitive needs: No Hearing needs: No Vision needs: Yes Review of Systems Const All systems reviewed & are unremarkable except as noted in HPI and below Physical Exam Vital Signs: Last Vital Signs Pulse 64 06/25/24 09:39 BP 102/50 L 06/25/24 09:39 Pulse Ox 96 06/25/24 09:39 Oxygen Delivery Method Room Air 06/25/24 09:39 BMI result Body Mass Index 27.7 Const General: comfortable and no acute distress Orientation/consciousness: patient oriented x3 HEENT Head: Yes normocephalic Mouth: Normal oral and palatal mucosa present Eyes EOM: EOMs intact bilaterally Neck Neck: Yes supple Resp Auscultation: clear to auscultation bilaterally Cardio Jugular venous distension: no JVD Rate: regular rate GI Palpation (GI): Soft to palpation Auscultation: normal bowel sounds Skin General skin exam: no rashes or lesions noted Neuro General: patient oriented x3 and moves all extremities Extrem General: Yes no pedal edema Results Reviewed Nephrology Results: Hgb 16.9 g/dl (14.0-18.0) 05/11/24 WBC 5.9 X10*3/uL (4.8-10.8) 05/11/24 Plt Count 121 X10*3/uL (160-400) L 05/11/24 Sodium 142 mmol/L (135-145) 06/16/24 Potassium 4.1 mmol/L (3.3-5.1) 06/16/24 Chloride 108 mmol/L (96-108) 06/16/24 Carbon Dioxide 26 mmol/L (22-29) 06/16/24 BUN 16 mg/dL (9-16) 06/16/24 Creatinine 1.01 mg/dL (0.5-1.4) 06/16/24 Calcium 8.9 mg/dL (8.4-10.2) 05/11/24 Urine Creatinine 73.18 mg/dL 06/16/24 Protein/Creatinin Ratio TNP 06/16/24 Assessment & Plan Assessment & Plan (1) Left renal stone: Comment: July 2022 Code(s): N20.0 - Calculus of kidney Category: Medical (2) Chronic kidney disease (CKD) stage G3a/A1, moderately decreased glomerular filtration rate (GFR) between 45-59 mL/min/1.73 square meter and albuminuria creatinine ratio less than 30 mg/g: Comment: Sees Dr. Richards Code(s): N18.31 - Chronic kidney disease, stage 3a Category: Medical (3) Hypertension: Code(s): I10 - Essential (primary) hypertension Category: Medical Qualifiers: Hypertension type: essential hypertension Qualified Code(s): I10 - Essential (primary) hypertension Plan George has CKD stage 3 and hypertension. His renal functions are stable. His blood pressure is at goal. He needs to lose some weight. He is on Jardiance. He most likely has some renovascular disease as well. He is tolerating JESUS inhibitor. He avoids nonsteroidal anti-inflammatories and maintain good hydration. I did not make any medication changes today. All questions answered. Follow-up blood work ordered and follow-up appointment given. Orders: Orders Creatinine 6 Months I10 - Essential (primary) hypertension, N18.31 - Chronic kidney disease, stage 3a, N20.0 - Calculus of kidney Protein Creatinine Ratio, Ur 6 Months I10 - Essential (primary) hypertension, N18.31 - Chronic kidney disease, stage 3a, N20.0 - Calculus of kidney Blood Urea Nitrogen 6 Months I10 - Essential (primary) hypertension, N18.31 - Chronic kidney disease, stage 3a, N20.0 - Calculus of kidney Electrolytes 6 Months I10 - Essential (primary) hypertension, N18.31 - Chronic kidney disease, stage 3a, N20.0 - Calculus of kidney Calcium 6 Months I10 - Essential (primary) hypertension, N18.31 - Chronic kidney disease, stage 3a, N20.0 - Calculus of kidney Coding Level of Care Code Est Pt Level 4 (75257) Diagnoses Left renal stone N20.0 Chronic kidney disease (CKD) stage G3a/A1, moderately decreased glomerular filtration rate (GFR) between 45-59 mL/min/1.73 square meter and albuminuria creatinine ratio less than 30 mg/g N18.31 Essential hypertension I10 Hypertension type: essential hypertension
[2024-06-25 09:39] VITALS: BP 102/50; PULSE 64; O2SAT 96; BMI 27.7
--- OUTSIDE RECORDS SUMMARY | 2024-06-25 10:20 | XMS_ITS ---
Author Organization [facility] maura Oran Address [address] [place] [address] Care Team Providers Care Enterprise Software Developer Name Role Phone Hiram Monge Primary Care Provider Amy Abrams Unavailable [phone] Allergies Allergen (clinical drug ingredient) Drug/Non Drug [...] 024 Encounters Encounter Location Date Provider Diagnosis [facility] [address] 02/06/2024 Amy Marshall Type 2 diabetes mellitus with diabetic peripheral angiopathy without gangrene E11.51 ; Atherosclerosis of [place] artery of both lower extremities, with unspecified [...] gangrene (ICD-10 - E11.51) 02/06/2024 Atherosclerosis of [place] artery of both lower extremities, with unspecified presence of clinical manifestation (ICD-10 - I70.203) 02/06/2024 Pain in toe of left foot (ICD-10 - M79.675) 02/06/2024 Pain in toe of right foot (ICD-10 - M79.674) 02/06/2024 Tinea unguium (ICD-10 - B35.1) Plan Of Treatment Next Appt Details Follow Up: 3 Months, Reason: Provider Name:Amy galindo, 07/16/2024 12:30:00 PM, [address] [place], [address], Procedure Notes * Category Sub-Category Detail Notes [...] as necessary. Patient chooses, no pharmaceutical tx (52317) Keratoma Treatment Parring or Cutting o f Benign Hyperkeratotic Lesion(s) (-56) 2-4 Lesions - The Benign hyperkeratotic lesions, as described above were pared, and/or cut utilizing a sterile 15 blade, tissue nippers, and/or dremel - 52435, Q8 Progress Notes * George ALDRICHDOB:1940 (83 yo M)Acc No.[id number]:02/06/2024 Progress Note Patient:?George Aldrich Provider:?Amy Marshall DPM :1940???Age:83 Y???Sex:Male Addi e:02/06/2024 Address:[address] [place], [place] [id number] Pcp:Hiram Monge Subjective: * Chief Complaints: * [...] yes, walking. ?Marital status: . 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 * Medications:?TakingamLODIPin e Benzoate , Notes: [...] angiopathy without gangrene - E11.51 (Primary)?2.?Atherosclerosis of [place] artery of both lower extremities, with unspecified [...] as necessary. Patient chooses, no pharmaceutical tx (49474).?Keratoma Treatment:?Parring or Cutting of Benign Hyperkeratotic Lesion(s)?(-56) 2-4 Lesions - The Benign hyperkeratotic lesions, as described above were pared, and/or cut utilizing a sterile 15 blade, tissue nippers, and/or dremel - 49053, Q8.? * Procedure Codes:?36700 DEBRI DE NAIL, 6 OR MORE, Modifiers: XS 31337 TRIM SKIN LESIONS, 2 TO 4, Modifiers: XS , Q8 * Follow Up:?3 Months * Images: * Sign off status: Completed true * Provider:?Amy Marshall DPM Date:? Generated for Gregory ramirez/Fauzia/Keren on:?06/25/2024 10:20 AM EST History and Physical Notes * [...]
--- OUTSIDE RECORDS SUMMARY | 2024-06-25 10:20 | XMS_ITS ---
Author Organization [facility] Hanna lorenzo [place] Address [address] [place] [address] Care Team Providers Care Satellite Project Site Monitor Name Role Phone Hiram Monge Primary Care Provider Amy Abrams [phone] REASON FOR VISIT rs from 05/14/24 Encounters Encounter Location Date Provider Diagnosis [address] [address] 05/12/2024 Amy Marshall Plan Of Treatment Next Appt Details Provider Name:Amy galindo, 07/16/2024 12:30:00 PM, [address] [place], [address], Progress Notes * George ALDRICHDOB:1940 (83 yo M)Acc No.[id number]:05/12/2024 Patient:?George ALDRICH :1940???Age:83 Y???Sex:Male Address:[address] [place] [address] * true * Date:? Generated for Printi ng/Fahelenag/eTransmitting on:?06/25/2024 10:20 AM EST
--- OUTSIDE RECORDS SUMMARY | 2024-06-25 10:21 | XMS_ITS | Patient Health Record ---
Author Organization [facility] [place] Address [address] [facility] [place] [address] Care Team Providers Care Tucking Machine Operator Name Role Phone Hiram Monge Primary Care Provider Amy Abrams Unavailable [phone] Allergies Allergen (clinical drug ingredient) Drug/Non Drug [...] Range Notes HEMOGLOBIN A1C (GLYCOHEMOGLO BIN) Reviewed date:02/06/2024 09:18:23 AM Interpretation: Performing Lab: Notes/Report: TOTAL HEMOGLOBIN (HGBA1C) 5.9 HEMOGLOBIN A1C (GLYCOHEMOGLO BIN) Reviewed date:08/06/2023 10:58:56 AM Interpretation: Performing Lab: Notes/Report: HEMOGLOBIN A1C % (HH) 6.8 Reason For Referral No Information Medications Medication [...] Type 2 diabetes mellitus with peripheral angiopathy (575838034) Type 2 diabetes mellitus with diabetic peripheral angiopathy without gangrene (E11.51) Active confirmed Problem 160688754747360 Atherosclerosis of [place] artery of both lower extremities, with unspecified presence of clinical manifestation (I70.203) Active confirmed Vital Signs Blood pressure diastolic 50 mm Hg 02/06/2024 Height 5 ft 10 in in 02/06/2024 Blood pressure systolic 90 mm Hg 02/06/2024 Weight 200 lbs 02/06/2024 BMI 28.69 kg/m2 02/06/2024 Encounters Encounter Location Date [facility] [address] [place] [address] 08/06/2023 Amy Marshall Type 2 diabetes mellitus with diabetic peripheral angiopathy without gangrene E11.51 ; Atherosclerosis of [place] artery of both lower extremities, with unspecified presence of clinical manifestation I70.203 ; Pain in toe of left foot M79.675 ; Pain in toe of right foot M79.674 and Tinea unguium B35.[address] [address] 11/07/2023 Amy Marshall Type 2 diabetes mellitus with diabetic peripheral angiopathy without gangrene E11.51 ; Atherosclerosis of [place] artery of both lower extremities, with unspecified presence of clinical manifestation I70.203 ; Pain in toe of left foot M79.675 ; Pain in toe of right foot M79.674 and Tinea unguium B35.[address] [address] 02/06/2024 Amy Joanna Type 2 diabetes mellitus with diabetic peripheral angiopathy without gangrene E11.51 ; Atherosclerosis of [place] artery of both lower extremities, with unspecified presence of clinical manifestation I70.203 ; Pain in toe of left foot M79.675 ; Pain in toe of right foot M79.674 and Tinea unguium B35.[address] [address] 05/12/2024 Amy Rushjosie Assessments Encounter Date Diagnosis (ICD Code) Assessment Notes Treatment Notes Treatment Clinical Notes Section Notes 08/06/2023 Type 2 diabetes mellitus with diabetic peripheral angiopathy without gangrene (ICD-10 - E11.51) 11/07/2023 Type 2 diabetes mellitus with diabetic peripheral angiopathy without gangrene (ICD-10 - E11.51) 02/06/2024 Type 2 diabetes mellitus with diabetic peripheral angiopathy without gangrene (ICD-10 - E11.51) 02/06/2024 Atherosclerosis of [place] artery of both lower extremities, with unspecified presence of clinical manifestation (ICD-10 - I70.203) 11/07/2023 Atherosclerosis of [place] artery of both lower extremities, with unspecified presence of clinical manifestation (ICD-10 - I70.203) 08/06/2023 Atherosclerosis of [place] artery of both lower extremities, with unspecified [...] Provider Name:Amy galindo, 07/16/2024 12:30:00 PM, [address] [place], [address], Insurance Providers Payer Name Payer Address Payer Phone Subscriber Number Group Number Insured Name Patient Relationship to Insured Coverage Start Date Coverage End Date Medicare National [employer] [address] [place] [address] [id number] George Arshad Self - [facility] the [facility] [address] [place] [address] [id number] Jeancarlos George Self - patient is the insured Medical (General) History Medical History History ICD Code Back,Hip,and Knee pain Diabetic Heart disease Measles Mumps Chicken pox Surgical History Surgery Date(Month/Year) hernia Cardiac Catherization 10/2023 Hospitalization History Reason Date(Month/Year) [facility]- Tachycardia 04/2020
--- OUTSIDE RECORDS SUMMARY | 2024-06-25 10:21 | XMS_ITS ---
Author Organization [facility] maura [place] Address [address] [facility] [place] [address] Care Team Providers Care Scraper Burrer Name Role Phone Hiram Monge Primary Care Provider Amy Abrams Unavailable [phone] Allergies Allergen (clinical drug ingredient) Drug/Non Drug [...] Active Encounters Encounter Location Date Provider Diagnosis [facility] [address] [address] 05/14/2024 Amy Marshall Plan Of Treatment Next Appt Details Provider Name:Amy Margaux galindo, 07/16/2024 12:30:00 PM, [address] [place] [address], [address], Progress Notes * George ALDRICHDOB:1940 (83 yo M)Acc No.[id number]:05/14/2024 Progress Note Patient:?ELINOR George Alvarado Provider:?Amy Marshall DPM :1940???Age:83 Y???Sex:Male Addi e:05/14/2024 Address:[address] [place], [place] [id number] Pcp:Hiram Monge Subjective: * Chief Complaints: * [...]
--- OUTSIDE RECORDS SUMMARY | 2024-06-25 10:21 | XMS_ITS | Patient Health Record ---
Author Organization [facility] Address [address] [place] [address] Care Team Providers Care Quirk Sander Name Role Phone Hiram Monge MD Primary Care Provider Jorge L Bhagat [phone] Allergies Allergen (clinical drug ingredient) Drug/Non Drug Allergy documented on EMR Reaction Allergy Type Onset Date Status lorazepam Lorazepam Unknown Drug Allergy Active Reason For Referral No Information Medications Medication [...] 1 tablet Orally Once a day Active Immunizations Vaccine Route Administration Date Status Comme nts Influenza Unknown 12/20/2020 Administered Problems Problem Type SNOMED Code ICD Code Onset Dates Problem Status W/U Status Risk Notes Problem 253602436 Encounter for screening for malignant neoplasm of colon (Z12.11) Active confirmed Problem 312971857 History of adenomatous polyp of colon (Z86.010) Active confirmed Problem 745738312 Long-term use of aspirin therapy (Z79.82) Active confirmed Problem Diverticulosis of colon (354954983) Diverticulosis of colon (K57.30) Active confirmed Plan Of Treatment Pending Test Test Name Order Date Pathology 08/15/2021 Future Test Test Name Order Date COLONOSCOPY 01/11/2014 COLONOSCOPY 07/10/2021 Insurance Providers Payer Name Payer Address Payer Phone Subscriber Number Group Number Insured Name Patient Relationship to Insured Coverage Start Date Coverage End Date MEDICARE OF [place] [address] [place] [address] [id number] YOHAN ALDRICH Self - patient is the insured [facility] [employer] [address] [place] [address] [id number] YOHAN ALDRICH Self - patient is the insured Medical (General) History Medical History History ICD Code NIDDM UT-2007--stents placed in 2007 and 3 Chronic kidney disease--sees Dr. Maurice Ny colonoscopy in 07/2003 w ori [place]--had previous tubular adenomas removed in the Hyperlipidemia Denies UT,CVA,Lung disease,renal disease Hypertension GERD Vitamin B12 deficiency Surgical History Surgery Date(Month/Year) Right inguinal hernia
--- OUTSIDE RECORDS SUMMARY | 2024-06-25 10:21 | XMS_ITS | Clinical Summary ---
Author Organization [facility] Address [address] [place] [address] Phone Care Team Providers Care Machine Stripper Name Role Phone Hiram Monge MD Primary Care Provider [phone] Allergies Active Allergy Reactions Criticality Noted Date [...] patient's age to complete this topic Insurance [facility] MEDICARE [facility] MEDICARE Care Teams Machine Stripper Relationship Specialty Start Date End Date Hiram Monge MD [address] [place] PCP - General 05/01/20
== END 2024-06-25 10:07 | disposition home or self-care (01) ==
PROVIDERS: PCP Internal Medicine; Visit Provider Internal Medicine Nephrology
DX: N20.0 Calculus of kidney (principal); N18.31 Chronic kidney disease, stage 3a; I10 Essential (primary) hypertension
CPT/HCPCS: 99214

== ENCOUNTER → 2024-06-25 09:31 | Outpatient (BNVA) | payer MEDICARE, OTHER, SELFPAY | PROVIDERS: PCP Internal Medicine; Visit Provider Internal Medicine Nephrology | DX: I12.9 Hypertensive chronic kidney disease with stage 1 through stage 4 chronic kidney disease, or unspecified chronic kidney disease (principal); N18.31 Chronic kidney disease, stage 3a; I25.10 Atherosclerotic heart disease of native coronary artery without angina pectoris; N20.0 Calculus of kidney | CPT/HCPCS: 99212 ==

== ENCOUNTER 2024-08-13 09:27 | Outpatient (AMB) | payer MEDICARE, OTHER, SELFPAY ==
[2024-08-13 09:33] VITALS: BP 114/62; PULSE 54; O2SAT 95; BMI 27.5
--- NOTE | 2024-08-13 09:33 | MHC.PC.OV ---
Vital Signs 08/13/24 09:33 Height 5 ft 10 in Weight 192 lb BMI 27.5 BP 114/62 Blood Pressure Location Lt brachial Position Sitting Pulse 54 Pulse Source Pulse Oximeter Pulse Oximetry (%) 95 Oxygen Delivery Method Room Air Intake Visit Reasons: ALEJO, congestion Allergies lorazepam [From Ativan] Allergy (Mild, Verified 08/13/24 09:36) UNKNOWN Tobacco use date assessed: 05/14/24 Fall risk assessment: No Falls in past year Last assessed Fall Risk: 08/13/24 Dental Screening Dental Screen Date: 05/14/24 [facility] Medical History Anemia On beta pedro at home Myocardial infarction Palpitations Pericarditis Coronary artery disease Pernicious anemia Type 2 diabetes mellitus with hyperglycemia Vitamin B12 deficiency Meningioma Chronic kidney disease (CKD) stage G3a/A1, moderately decreased glomerular filtration rate (GFR) between 45-59 mL/min/1.73 square meter and albuminuria creatinine ratio less than 30 mg/g GERD (gastroesophageal reflux disease) Tick bite of abdominal wall Hypercholesterolemia Hypertension Surgical History History of heart artery stent History of colonoscopy History of inguinal hernia repair Family History Father CHF (congestive heart failure) CAD (coronary artery disease) CVD (cardiovascular disease) Mother CHF (congestive heart failure) CVD (cardiovascular disease) Diabetes Social History Housing: House Alcohol intake: former Patient Tobacco Use Status: Never used Tobacco Tobacco use type: Cigarette e-Cigarette/Vaping Use: Never Used Second Hand Smoke Exposure: No service: No Current occupational status: retired Cognitive needs: No Hearing needs: No Vision needs: Yes Questionnaire PHQ-9 Over the last 2 weeks, how often have you been bothered by any of the following problems? 1. Little interest or pleasure in doing things: not at all 2. Feeling down, depressed, or hopeless: not at all 3. Trouble falling or staying asleep, or sleeping too much: not at all 4. Feeling tired or having little energy: not at all 5. Poor appetite or overeating: not at all 6. Feeling bad about yourself - or that you are a failure or have let yourself or your family down: not at all 7. Trouble concentrating on things, such as reading the newspaper or watching television: not at all 8. Moving or speaking so slowly that other people could have noticed. Or the opposite - being so fidgety or restless that you have been moving around a lot more than usual: not at all 9. Thoughts that you would be better off or of hurting yourself in some way: not at all Total score: 0 Depression Screening Interpretation: Negative Depression Screening Done: Yes 30990 - PHQ-9 Billing: Yes Source: Developed by Drs. Jorge L Reyes, Yesi Weldon, Jose De Jesus Noble and colleagues, with an educational linus from [employer]. Thrive Questionnaire Date Thrive assessed: 05/14/24 I am a: Patient What is your living situation today?: I have a steady place to live Within the past 12 months, did the food you bought not last and you didn't have the money to get more?: Never true Within the past 12 months, did you worry whether your food would run out before you got money to buy more?: Never true Do you have trouble paying for medicines?: No Do you have trouble getting transportation to medical appointments?: No Do you have trouble paying your heating and electricity bill?: No Do you have trouble taking care of your child, family member or friend?: No Do you have trouble with day-to-day activities such as bathing, preparing meals, shopping, managing finances, etc.?: No Are you currently unemployed and looking for a job?: No Are you interested in more education?: No Please select the resources that you would like help with: None Currently or been in a relationship where the following occur: No concerns reported THRIVE Score: 0 AUDIT C Alcohol Use Questionnaire (AUDIT-C) 1. How often do you have a drink containing alcohol?: Never Total Score: 0 LIANNA-7 AMB Questionnaire LIANNA-7 Date LIANNA - 7 assessed: 05/14/24 Feeling nervous, anxious, or on edge: 0 = Not at all Not being able to stop or control worryin = Not at all Worrying too much about different things: 0 = Not at all Trouble relaxin = Not at all Being so restless that it is hard to sit still: 0 = Not at all Becoming easily annoyed or irritable: 0 = Not at all Feeling afraid as if something awful might happen: 0 = Not at all Total LIANNA-7 score (0-4 normal; 5-9 mild; 10-14 moderate; 15-21 severe): 0 Source: Developed by Drs. Jorge L Reyes, Yesi Weldon, Jose De Jesus Noble and colleagues, with an educational linus from [employer]. Physical exam (Primary Care) Vital Signs: Last Vital Signs Pulse 54 08/13/24 09:33 BP 114/62 08/13/24 09:33 Pulse Ox 95 08/13/24 09:33 Oxygen Delivery Method Room Air 08/13/24 09:33 BMI result Body Mass Index 27.5 Tobacco/Smoking Status: Tobacco use Status Tobacco use date assessed 05/14/24 08/13/24 09:35 Patient Tobacco Use Status Never used Tobacco 08/13/24 09:35 Tobacco use type Cigarette 08/13/24 09:36 e-Cigarette/Vaping Use Never Used 08/13/24 09:35 PHQ-9: PHQ-9 Score PHQ-9: Total score 0 08/13/24 09:42 Depression Screening Interpretation: Negative Thrive Assessment: Date of Thrive Assessment Date Thrive assessed 05/14/24 08/13/24 09:35 Currently or been in a relationship where the following occur: No concerns reported Const General: alert; No acute distress Eyes Conjunctivae: conjunctivae normal Resp Auscultation: clear to auscultation bilaterally Cardio Rate: regular rate Rhythm: regular rhythm GI Inspection: Yes normal to inspection Extrem General: Yes normal to inspection and No edema Coding Level of Care Code Est Pt Level 4 (82767) Complex EM visit Add On G2211 Diagnoses Type 2 diabetes mellitus with hyperglycemia, without long-term current use of insulin E11.65 Diabetes mellitus care home insulin use: without care home use Coronary artery disease involving [place] coronary artery of [place] heart without angina pectoris I25.10 Associated angina: without angina Coronary Disease-Associated Artery/Lesion type: [place] artery [place] vs. transplanted heart: [place] heart Chronic kidney disease (CKD) stage G3a/A1, moderately decreased glomerular filtration rate (GFR) between 45-59 mL/min/1.73 square meter and albuminuria creatinine ratio less than 30 mg/g N18.31 Essential hypertension I10 Hypertension type: essential hypertension Hypercholesterolemia E78.00 Gastroesophageal reflux disease without esophagitis K21.9 Esophagitis presence: without esophagitis Generalized anxiety disorder F41.1 Nasal congestion R09.81 Additional Codes PHQ-9 - 32206 - PHQ-9 Billing: Yes ([id number]) Assessment & Plan Assessment & Plan (1) Type 2 diabetes mellitus with hyperglycemia: Comment: EYE and LASIK/ (07/2024)[facility] Code(s): E11.65 - Type 2 diabetes mellitus with hyperglycemia Category: Medical Qualifiers: Diabetes mellitus care home insulin use: without care home use Qualified Code(s): E11.65 - Type 2 diabetes mellitus with hyperglycemia Plan: Decrease the amount of carbohydrate intake, pasta, bread, rice and potatoes are all sugar and that is aside from all the sweet stuff, remember that fruits are good but they are Sweet also. Hemoglobin A1c goal of less than 7 on Jardiance 25 mg once a day glipizide 5 mg twice a day. Surprised with the A1c surprised with the A1c being elevated to 6.9. Patient is still under control continue with present medication but discussed about the problem and we will retest in 3 months. (2) Coronary artery disease: Comment: PCI of LAD January 2008 MRI January 2008 repeat drug-eluting stent LAD August 2012 , positive stress test April 2020 medical management Code(s): I25.10 - Atherosclerotic heart disease of [place] coronary artery without angina pectoris Category: Medical Qualifiers: Associated angina: without angina Coronary Disease-Associated Artery/Lesion type: [place] artery [place] vs. transplanted heart: [place] heart Qualified Code(s): I25.10 - Atherosclerotic heart disease of [place] coronary artery without angina pectoris Plan: Control the cholesterol, weight, blood pressure, diabetes on metoprolol 100 mg twice a day isosorbide mononitrate 30 mg once a day and aspirin 81 mg once a day (3) Chronic kidney disease (CKD) stage G3a/A1, moderately decreased glomerular filtration rate (GFR) between 45-59 mL/min/1.73 square meter and albuminuria creatinine ratio less than 30 mg/g: Comment: Sees Dr. Richards Code(s): N18.31 - Chronic kidney disease, stage 3a Category: Medical Plan: Patient sees Nephrology renal function is stable chronic kidney disease stage 3 continue to monitor keep well hydrated avoid NSAIDs continue with Jardiance and an Yony inhibitor (4) Hypertension: Code(s): I10 - Essential (primary) hypertension Category: Medical Qualifiers: Hypertension type: essential hypertension Qualified Code(s): I10 - Essential (primary) hypertension Plan: Continue with blood pressure medication. Decrease salt intake and exercise on metoprolol 100 mg twice a day lisinopril 2.5 mg once a day and amlodipine 2.5 mg once a day (5) Hypercholesterolemia: Code(s): E78.00 - Pure hypercholesterolemia, unspecified Category: Medical Plan: Avoid fried foods, chicken skin, eggs, butter margarine, pastries and meat. Be it pork or beef they have a lot of cholesterol May 2024 LDL goal (6) GERD (gastroesophageal reflux disease): Code(s): K21.9 - Gastro-esophageal reflux disease without esophagitis Category: Medical Qualifiers: Esophagitis presence: without esophagitis Qualified Code(s): K21.9 - Gastro-esophageal reflux disease without esophagitis Plan: Avoid the foods that causes that usually spicy foods, tomato products, juices, coffee, soda and foods that your sensitive to. After eating do not lie down, allow 3-4 hours before in lie down. And keep the head of bed above 30 degrees to avoid the acid from going up. (7) Generalized anxiety disorder: Code(s): F41.1 - Generalized anxiety disorder Category: Medical Plan: Stable (8) Nasal congestion: Code(s): R09.81 - Nasal congestion Category: Medical Plan History of Present Illness The patient is an 83-year-old male presenting with acute sinus congestion. Most recently noted in April 2024, his sinus congestion prompted interest in obtaining sinus x-rays, which revealed mild mucoperiosteal thickening. Concurrently, stable management of his chronic conditions, including diabetes mellitus, controlled with a regimen of Jardiance and glipizide, continues to be effective, with the latest Hemoglobin A1c of 6.4%. Essential hypertension is also being managed through medication, while hypercholesterolemia has shown very good LDL levels. His chronic kidney disease, stage 3, remains stable under nephrology care, with previous episodes of left renal calculi being monitored. Routine hematological evaluations suggest chronic thrombocytopenia remains consistent. Gastroesophageal reflux disease, generalized anxiety disorder, and prior colon testing per routine follow-up were mentioned during the visit. Health Maintenance - Diabetes mellitus management with Hemoglobin A1c goal under 6.7% - Recent colonoscopy in July 2021 - Routine nephrology consultations; last seen in June - Routine blood work with stable markers as of May 11, 2024 Social History Review of Systems - HEENT: Reports sinus congestion - Genitourinary: Denies changes from usual function - Hematological: Denies new symptoms aside from chronic stable thrombocytopenia Physical Exam Results - Sinus X-Ray: Mild mucoperiosteal thickening along the left maxillary sinus - Labs from May 11: Hemoglobin A1c 6.4%, stable renal function with creatinine 1.01, chronic stable thrombocytopenia, normal electrolytes Plan The management of sinus congestion accompanies the ongoing regulation of chronic ailments such as hypertension, diabetes mellitus, and hypercholesterolemia, under current therapeutic regimens. Continued administration of antihypertensives and diabetes medications, including Jardiance and glipizide, is emphasized. Stable chronic kidney disease necessitates regular nephrology consultations. GERD and anxiety disorder monitoring persist with no new recommendations. Lifestyle adjustments and routine health evaluations are advised given his chronic conditions. Patient was informed and verbally consented to the use of an ambient scribe for clinic note documentation during this visit. Discussion Notes During our discussion, I reviewed with the patient the current management strategies for all identified conditions, including his effective regimen for diabetes and hypertension. We addressed the sinus congestion and confirmed its chronic nature with minimal mucosal impact noted on x-ray. I emphasized continued renal monitoring, particularly given his stage 3 CKD, together with periodic consultations with nephrology. The recent imbalance in Hemoglobin A1c was acknowledged, steering toward stable target ranges with existing medications. We deliberated on his cholesterol control efforts alongside discussions about his manageable thrombocytopenia. Patient Instructions - Continue prescribed medications for diabetes and hypertension - Adhere to recommended engineer technician appointments - Maintain diet modifications as prescribed - Monitor blood sugar levels and blood pressure regularly - Use saline nasal spray as needed for sinus congestion - Report any new symptoms or concerns promptly Orders: Orders AMB Hemoglobin A1c Today Z13.9 - Encounter for screening, unspecified
--- OUTSIDE RECORDS SUMMARY | 2024-08-13 09:40 | XMS_ITS ---
Author Organization [facility]aura [place] Address [address] [place] [address] Care Team Providers Care Supervisor Instrument Repair Name Role Phone Hiram Monge Primary Care Provider Amy Abrams Unavailable [phone] Allergies Allergen (clinical drug ingredient) Drug/Non Drug [...] e a day for 30 day(s) Active Isosorbide Dinitrate 90mg Active amLODIPine Benzoate 2.5mg Active Fenofibrate 160 MG 1 tablet Orally Once a day for 30 day(s) Not-Taking Folic Acid 1 MG 1 tablet Orally Once a day for 30 day(s) Active glipiZIDE 5 MG 1 tablet 30 minutes before breakfast Orally Once a day for 30 day(s) Active Rosuvastatin Calcium 40 MG 1 tablet Orally Once a day for 30 day(s) Active Lisinopril 2.5 MG 1 tablet Orally Once a day for 30 day(s) Active Metoprolol Tartrate 100 MG 1 tablet with food Orally Twice a day for 30 day(s) Active Omeprazole [...] nonsmoker Additional Findings: Tobacco Non-User Aggressive non-smoker Tobacco use other than smoking: Question Answer Notes Are you an other tobacco user? No Vital Signs Height 5 ft 10 in in 07/16/2024 Weight 190 lbs 07/16/2024 BMI 27.26 kg/m2 07/16/2024 Blood pressure systolic 90 mm Hg 07/17/19 25 Blood pressure diastolic 50 mm Hg 025 Encounters Encounter Location Date Provider Diagnosis [facility] [address] [address] 07/16/2024 Amy Marshall Type 2 diabetes mellitus with diabetic peripheral angiopathy without gangrene E11.51 ; Atherosclerosis of [place] artery of both lower extremities, with unspecified presence of clinical manifestation I70.203 ; Pain in toe of left foot M79.675 ; Pain in toe of right foot M79.674 and Tinea unguium B35.1 Assessments Encounter Date Diagnosis (ICD Code) Assessment Notes Treatment Notes Treatment Clinical Notes Section Notes 07/16/2024 Type 2 diabetes mellitus with diabetic peripheral angiopathy without gangrene (ICD-10 - E11.51) 07/16/2024 Atherosclerosis of [place] artery of both lower extremities, with unspecified presence of clinical manifestation (ICD-10 - I70.203) 07/16/2024 Pain in toe of left foot (ICD-10 - M79.675) 07/16/2024 Pain in toe of right foot (ICD-10 - M79.674) 07/16/2024 Tinea unguium (ICD-10 - B35.1) Plan Of Treatment Next Appt Details Follow Up: 3 Months, Reason: Provider Name:Amy galindo, 10/15/2024 12:30:00 PM, [address] [place] [address], [phone], Procedure Notes * Category Sub-Category Detail Notes Debride Nail 6-10 Nail debridement Due to the cl inical pathology outlined in the exam findings, performance of this nail treatment is medically necessary as its management by an unskilled/untrained nonprofessional would put this patients foot and overall health at risk. Therefore, debridement to affected nail(s), as described in exam ( TA, T1, T2, T3, T4, T5, T6, T7, T8, T9, ), was performed exclusively by the physician of record to reduce/remove overall nail length, girth, thickness, subungual debris, and necrotic tissue, by manual and/or electrical means through the use of a nail nipper and/or dremel-type crankshaft grinder, to a more viable healthy nail plate or bed tissue 6-10 nails in total. Silver nitrate was used for any petechial bleeding as necessary. Definitive antifungal treatment options, both pharmaceutical and surgical, have been reviewed and discussed with the patient. The patient solely prefers the use of intermittent/as needed professional debridement services for their nail condition and understands the need for additional periodic treatments to maintain effectiveness in symptomatic relief - 13446 Keratoma Treatment Parring or Cutting o f Benign Hyperkeratotic Lesion(s) (-56) 2-4 Lesions - Due to the at risk nature of the patients medical condition as documented in the exam findings, performance of this keratoderma treatment is medically necessary as its management by an unskilled/untrained nonprofessional would put this patients foot and overall health at risk. Therefore, the benign hyperkeratotic lesions, (2) in total, locations as stated and described in the exam ( plantar medial IPJ TA and T5 ), were pared, and/or cut utilizing a sterile 15 blade, tissue nippers, and/or power dremel instrumentation by the physician of record - 28080, Q8 Progress Notes * George ALDRICHDOB:1940 (83 yo M)Acc No.[id number]:07/16/2024 Progress Note Patient:?George ALDRICH Provider:?Amy Marshall DPM :1940???Age:83 Y???Sex:Male Addi e:07/16/2024 Address:[address] [place], [place] [id number] Pcp:Hiram Monge Subjective: * Chief Complaints: * ???At Risk FootcarePainful N ail(s) aggrevated by shoes and causing difficulty standing/walking. * HPI: ???At Risk footcare:?Pt States Last PCP Visit:?Date?01/20/2024 * ROS:?General/Constitutional:?Nausea?denies.?Vomiting?denies.?Hunger Thirst?denies.?Loss appetite?denies.?Chills?denies.?Fatigue?denies.?Fever?denies.?Night Sweats?denies.?Unexplained weight loss?denies.?Unexplained weight gain?denies.?HEENTM:?Dentures?denies.?Dizziness?denies.?Glasses/contacts?denies.?Retinopathy?den ies.?Blurred/double vision?denies.?TMJ?denies.?Discharge/drainage?denies.?Implants?denies.?Sore throat?denies.?Dental implants?denies.?Hard of hearing ?denies.?Difficulty chewing/swallowing/speaking?denies.?Nose bleeds?denies.?Sore mouth?denies.?Respiratory:?On O xygen?denies.?Pneumonia/pleurisy?denies.?Bronchitis?denies.?Emphysema?denies.?Co ughing?denies.?Cough blood?denies.?Shortness of breath?denies.?Wheezing?denies.?Cardiovascular:?Pacemaker?denies.?MVP?denies.?WPW?denies.?CHF?denies.?Heart attack?denies.?Septal defect?denies.?Rapid beat?denies.?Chest pain ?denies.?Atrial Fib.?denies.?Murmur/Palpitations?denies.?Gastrointestinal:?Hemorrhoids?denies.?Stomach/Abdominal pain?denies.?Dark blood stool?denies.?Irritable bowel ?denies.?Constipation?denies.?Diarrhea?denies.?Hematology:?Swelling?denies.?Clots?denies.?Varicose Veins?denies.?Bruising?denies.?Bleeding problem?denies.?Genitourinary:?Blood urine?denies.?Frequent/Painfu/urination/bladder control?denies.?Kidney stones?denies.?Infection (UTI)?denies.?Nephropathy?denies.?sex trans dis (STD)?denies.?Prostate?denies.?Musculoskeletal:?Hammertoes?denies.?Bunions?denies.?Back Pain?denies.?Muscle Cramps/ Resting?denies.?Muscle cramps / walking?denies.?Generalized aches and pains?denies.?Weakness?denies.?Integ.:?Sanon?denies.?Scars?denies.?Corns/calluses?denies.?Ingrown nails?denies.?Painful nails?denies.?Open Sores?denies.?Rashes?denies.?Neurologic:?Difficulty sleeping?denies.?Brain disorder?denies.?Numbness?denies.?Balance t rouble?denies.?Confusion?denies.?Fainting/blackouts?denies.?Tingling?denies.?Vladimir mors?denies.? * Medical History:? * Surgical History:?hernia /200Cardiac Catherization 10/2023 * Hospitalization/Major Diagno stic Procedure:?[facility]- Tachycardia 04/2020 * Family History:?Mother: dece ased, diagnosed with Diabetic - NIDDM.?Father: , diagnosed with Unspecified heart disease.? * Social History:?Tobacco Use:?Tobacco Use/Smoking?Are you a:?nonsmoker ?Additional Findings: Tobacco Non-User?Aggressive non-smoker ?Tobacco use other than smoking?Are you an other tobacco user??No ???Miscellaneous:?Caffeine: yes, frequency: rarely. ?Children: yes. ?Exercise: yes, walking. ?Marital status: . 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 * Medications:?TakingamLODIPin e Benzoate , Notes to Pharmacist: 2.5mgIsosorbide Dinitrate , Notes to Pharmacist: 90mgAscorbic Acid 500 MG Tablet Chewable 1 tablet Orally Once a day Ferrous Sulfate 325 (65 Fe) MG Tablet 1 tablet Orally Once a day Jardiance 25 MG Tablet 1 tablet Orally Once a day Aspirin 81 81 MG Tablet Delayed Release 1 tablet Orally Once a day Omeprazole 40 MG Capsule Delayed Release 1 capsule 30 minutes before morning meal Orally Once a day Metoprolol Tartrate 100 MG Tablet 1 tablet with food Orally Twice a day Lisinopril 2.5 MG Tablet 1 tablet Orally Once a day Rosuvastatin Calcium 40 MG Tablet 1 tablet Orally Once a day glipiZIDE 5 MG Tablet 1 tablet 30 minutes before breakfast Orally Once a day Folic Acid 1 MG Tablet 1 tablet Orally Once a day Taking amLODIPine Benzoate , Notes to Pharmacist: 2.5mgTaking Isosorbide Dinitrate , Notes to Pharmacist: 90mgTaking Ascorbic Acid 500 MG Tablet Chewable 1 tablet Orally Once a day Taking Ferrous Sulfate 325 (65 Fe) MG Tablet 1 tablet Orally Once a day Taking Jardiance 25 MG Tablet 1 tablet Orally Once a day Taking Aspirin 81 81 MG Tablet Delayed Release 1 tablet Orally Once a day Taking Omeprazole 40 MG Capsule Delayed Release 1 capsule 30 minutes before morning meal Orally Once a day Taking Metoprolol Tartrate 100 MG Tablet 1 tablet with food Orally Twice a day Taking Lisinopril 2.5 MG Tablet 1 tablet Orally Once a day Taking Rosuvastatin Calcium 40 MG Tablet 1 tablet Orally Once a day Taking glipiZIDE 5 MG Tablet 1 tablet 30 minutes before breakfast Orally Once a day Taking Folic Acid 1 MG Tablet 1 tablet Orally Once a day Not-Taking/PRNFenofibrate 160 MG Tablet 1 tablet Orally Once a day Medication List reviewed and reconciled with the patientNot-Taking/PRN Fenofibrate 160 MG Tablet 1 tablet Orally Once a day Medication List reviewed and reconciled with the patient * Allergies:?Advil: kidney lizet lureAleve: kidney failureMotrin: kidney failureMorphine Sulfate: nauseaAtivan: hyperactiveyes[Allergies Verified] Objective: * Vitals:?Ht: 5 ft 10 in, Wt: 190, BMI: 27.26, Shoe size: 10, BP: 90/50 mm Hg, BS: 119, Wt-k.18 kg. * ???Past Orders: ???Lab:HEMOGLOBIN A1C (GLYCO HEMOGLOBIN) (Order Date - 04/21/2024) (Collection Date & Time - 04/21/2024 12:42 PM) ? Value Reference Range ?HEMOGLOBIN A1C % (HH) 6.4 * Examination: ???Ophthalmology Referral: ?DIABETES EYE EXAM?Procedure Performed:?Yes ?Date of Exam Performed?12/21/2023 ?Findings of Diabetic Eye Exam:?no retinopathy?Vascular: ?DP PULSES (B):?0/4, B/L.?PT PULSES (B):?0/4, B/L.?CAPILLARY FILL TIME:?delayed, all digits, B/L.?TROPHIC CONDITION-TEXTURE/ELASTICITY/TURGOR/HAIR GROWTH (B):?decreased, B/L.?TEMPERTURE GRADIENT (C):?decreased, cool to cool, proximal to distal, B/L.?PIGMENTATION:?pale, B/L.?EDEMA (C):?absent, B/L.?Nails: ?NAILS are:?TA, T1, T2, T3, T4, T5, T6, T7, T8, T9, Elongated, overgrown, dystrophic, lytic, greater than 3mm thick, discolored and friable with crumbly malodorous subungual debris, with pain on palpation.?Dermatologic: ?SKIN FINDINGS:?Skin exam reveals Keratotic lesion(s) located at TA, T5 , Medial plantar.? Assessment: * Assessment: 1.?Type 2 diabetes mellitus with diabetic peripheral angiopathy without gangrene - E11.51 (Primary)???2.?Atherosclerosis of [place] artery of both lower extremities, with unspecified presence of clinical manifestation - I70.203???3.?Pain in toe of left foot - M79.675???4.?Pain in toe of right foot - M79.674???5.?Tinea unguium - B35.1??? Plan: * Treatment: * Procedures:?Debride Nail 6-10:?Nail debridement?Due to the clinical pathology outlined in the exam findings, performance of this nail treatment is medically necessary as its management by an unskilled/untrained nonprofessional would put this patients foot and overall health at risk. Therefore, debridement to affected nail(s), as described in exam ( TA, T1, T2, T3, T4, T5, T6, T7, T8, T9, ), was performed exclusively by the physician of record to reduce/remove overall nail length, girth, thickness, subungual debris, and necrotic tissue, by manual and/or electrical means through the use of a nail nipper and/or dremel-type crankshaft grinder, to a more viable healthy nail plate or bed tissue 6- 10 nails in total. Silver nitrate was used for any petechial bleeding as necessary. Definitive antifungal treatment options, both pharmaceutical and surgical, have been reviewed and discussed with the patient. The patient solely prefers the use of intermittent/as needed professional debridement services for their nail condition and understands the need for additional periodic treatments to maintain effectiveness in symptomatic relief - 66517.?Keratoma Treatment:?Parring or Cutting of Benign Hyperkeratotic Lesion(s)?(-56) 2-4 Lesions - Due to the at risk nature of the patients medical condition as documented in the exam findings, performance of this keratoderma treatment is medically necessary as its management by an unskilled/untrained nonprofessional would put this patients foot and overall health at risk. Therefore, the benign hyperkeratotic lesions, (2) in total, locations as stated and described in the exam ( plantar medial IPJ TA and T5 ), were pared, and/or cut utilizing a sterile 15 blade, tissue nippers, and/or power dremel instrumentation by the physician of record - 96942, Q8.? * Procedure Codes:?16694 DEBRI DE NAIL, 6 OR MORE, Modifiers: XS 11254 TRIM SKIN LESIONS, 2 TO 4, Modifiers: XS , Q8 * Follow Up:?3 Months * Images: * Sign off status: Completed true * Provider:?Amy Marshall DPM Date:? Generated for Gregory ramirez/Fauzia/Keren on:?08/13/2024 09:40 AM EDT History and Physical Notes * HPI (History of Present Illness) Category Sub-Category Detail Notes Category Not es At Risk footcare Pt States Last PCP Visit: Date: Examination Category Sub-Category Detail Notes Category Not es Dermatologic SKIN FINDINGS: Skin exam reveal s Keratotic lesion(s) located at TA, T5 , Medial plantar Ophthalmology Referral DIABETES EYE EXAM Procedu re Performed:: Yes ?Date of Exam Performed: 12/21/2023 Findings of Diabetic Eye Exam:: no retin opathy Vascular DP PULSES (B): 0/4, B/L PT PULSES (B): 0/4, B/L CAPILLARY FILL TIME: delayed, all digits , B/L TEMPERTURE GRADIENT (C): decreased, cool to cool, proximal to distal, B/L TROPHIC CONDITION-TEXTURE/ELASTICITY/TURGOR/HAIR GROWTH (B): decreased, B/L EDEMA (C): absent, B/L PIGMENTATION: pale, B/L Nails NAILS are: TA, T1, T2, T3, T4, T5, T6, T7, T8, T9, Elongated, overgrown, dystrophic, lytic, greater than 3mm thick, discolored and friable with crumbly malodorous subungual debris, with pain on palpation
--- OUTSIDE RECORDS SUMMARY | 2024-08-13 09:40 | XMS_ITS ---
Author Organization [facility] Hanna [place] Address [address] [place] [address] Care Team Providers Care Sock Folder Name Role Phone Hiram Monge Primary Care Provider Amy Abrams [phone] REASON FOR VISIT rs from 05/14/24 Encounters Encounter Location Date Provider Diagnosis [address] [address] 05/12/2024 Amy Marshall Plan Of Treatment Next Appt Details Provider Name:Amy galindo, 10/15/2024 12:30:00 PM, [address] [place], [address], Progress Notes * George ALDRICHDOB:1940 (83 yo M)Acc No.[id number]:05/12/2024 Patient:?George ALDRICH :1940???Age:83 Y???Sex:Male Address:[address] [place] [address] * true * Date:? Generated for Printi ng/Faxing/eTransmitting on:?08/13/2024 09:40 AM EDT
--- OUTSIDE RECORDS SUMMARY | 2024-08-13 09:40 | XMS_ITS | Clinical Summary ---
Author Organization [facility] Address [address] [place] [address] Phone Care Team Providers Care User Support Analyst Supervisor Name Role Phone Hiram Monge MD Primary Care Provider [phone] Allergies Active Allergy Reactions Criticality Noted Date [...] through stage IV, or unspecified 07/21/2020 Immunizations Immunization Administration Dates Next Due Pfizer SARS-COV-2 06/13/2020 [...] Diabetes: Visual Foot Exam 12/27/2021 Influenza Vaccine (Season Ended) 2024 Pneumococcal Vaccine: 50+ Years Completed 05/19/2015, 05/19/2015, 01/19/2011 Pneumococcal Vaccine: Peds ( 0 to 5 Years) and At-Risk Patients (6 to 49 Years) Discontinued 05/19/2015, 05/19/2015, 01/19/2011 Hepatitis B Vaccine Aged Out No longe r eligible based on patient's age to complete this topic Insurance [employer] Medicare First[employer] Medicare Care Teams User Support Analyst Supervisor Relationship Specialty Start Date End Date Hiram Monge MD [address] [place], [place] PCP - General 05/01/20
--- OUTSIDE RECORDS SUMMARY | 2024-08-13 09:40 | XMS_ITS ---
Author Organization [facility]aura [place] Address [address] [place] [address] Care Team Providers Care Director Of Managed Services Name Role Phone Hiram Monge Primary Care Provider Amy Abrams Unavailable [phone] Allergies Allergen (clinical drug ingredient) Drug/Non Drug [...] Active Encounters Encounter Location Date Provider Diagnosis [facility] [address] [address] 05/14/2024 Amy Marshall Plan Of Treatment Next Appt Details Provider Name:Amy galindo, 10/15/2024 12:30:00 PM, [address] [place] [address], [phone], Progress Notes * George ALDRICHDOB:1940 (83 yo M)Acc No.[id number]:05/14/2024 Progress Note Patient:?ELINOR George Alvarado Provider:?Amy Marshall DPM :1940???Age:83 Y???Sex:Male Addi e:05/14/2024 Address:[address] [place], [place] [address] Pcp:Hiram Monge Subjective: * Chief Complaints: * [...]
--- OUTSIDE RECORDS SUMMARY | 2024-08-13 09:41 | XMS_ITS | Patient Health Record ---
[facility] [place] Address [address] [place] [address] Care Team Providers Care Die Setter Name Role Phone Hiram Monge Primary Care Provider Amy Abrams Unavailable [phone] Allergies Allergen (clinical drug ingredient) Drug/Non Drug [...] (HGBA1C) 5.9 HEMOGLOBIN A1C (GLYCOHEMOGLO BIN) Reviewed date:07/16/2024 12:43:23 PM Interpretation: Performing Lab: Notes/Report: HEMOGLOBIN A1C % (HH) 6.4 Reason For Referral No Information Medications Medication SIG (Take, Route, Frequency, Duration) Notes Start Date End Date Status Ascorbic Acid 500 MG 1 tablet Orally Onc e a day for 30 day(s) Active Isosorbide Dinitrate 90mg Active amLODIPine Benzoate 2.5mg Active glipiZIDE 5 MG 1 tablet 30 [...] Once a day for 30 day(s) Active Fenofibrate 160 MG 1 tablet Orally [...] Type 2 diabetes mellitus with peripheral angiopathy (370846469) Type 2 diabetes mellitus with diabetic peripheral angiopathy without gangrene (E11.51) Active confirmed Problem [id number] Atherosclerosis of [place] artery of both lower extremities, with unspecified presence of clinical manifestation (I70.203) Active confirmed Vital Signs Blood pressure diastolic 50 mm Hg 07/16/2024 Height 5 ft 10 in in 07/16/2024 Blood pressure systolic 90 mm Hg 07/16/2024 Weight 190 lbs 07/16/2024 BMI 27.26 kg/m2 07/16/2024 Encounters Encounter Location Date Provider [facility] [address] [place] [address] 11/07/2023 Amy Marshall Type 2 diabetes mellitus with diabetic peripheral angiopathy without gangrene E11.51 ; Atherosclerosis of [place] artery of both lower extremities, with unspecified presence of clinical manifestation I70.203 ; Pain in toe of left foot M79.675 ; Pain in toe of right foot M79.674 and Tinea unguium B35.[address] [address] 02/06/2024 Amy Joanna Type 2 diabetes mellitus with diabetic peripheral angiopathy without gangrene E11.51 ; Atherosclerosis of [place] artery of both lower extremities, with unspecified presence of clinical manifestation I70.203 ; Pain in toe of left foot M79.675 ; Pain in toe of right foot M79.674 and Tinea unguium B35.[address] [address] 07/16/2024 Amy Joanna Type 2 diabetes mellitus with diabetic peripheral angiopathy without gangrene E11.51 ; Atherosclerosis of [place] artery of both lower extremities, with unspecified presence of clinical manifestation I70.203 ; Pain in toe of left foot M79.675 ; Pain in toe of right foot M79.674 and Tinea unguium B35.[address] [address] 05/12/2024 Amy Rushjosie Assessments Encounter Date Diagnosis (ICD Code) Assessment Notes Treatment Notes Treatment Clinical Notes Section Notes 11/07/2023 Type 2 diabetes mellitus with diabetic peripheral angiopathy without gangrene (ICD-10 - E11.51) 02/06/2024 Type 2 diabetes mellitus with diabetic peripheral angiopathy without gangrene (ICD-10 - E11.51) 07/16/2024 Type 2 diabetes mellitus with diabetic peripheral angiopathy without gangrene (ICD-10 - E11.51) 07/16/2024 Atherosclerosis of [place] artery of both lower extremities, with unspecified presence of clinical manifestation (ICD-10 - I70.203) 02/06/2024 Atherosclerosis of [place] artery of both lower extremities, with unspecified presence of clinical manifestation (ICD-10 - I70.203) 11/07/2023 Atherosclerosis of [place] artery of both lower extremities, with unspecified presence of clinical manifestation (ICD-10 - I70.203) 11/07/2023 Pain in toe of left foot (ICD-10 - M79.675) 02/06/2024 Pain in toe of left foot (ICD-10 - M79.675) 07/16/2024 Pain in toe of left foot (ICD-10 - M79.675) 07/16/2024 Pain in toe of right foot (ICD-10 - M79.674) 02/06/2024 Pain in toe of right foot (ICD-10 - M79.674) 11/07/2023 Pain in toe of right foot (ICD-10 - M79.674) 11/07/2023 Tinea unguium (ICD-10 - B35.1) 02/06/2024 Tinea unguium (ICD-10 - B35.1) 07/16/2024 Tinea unguium (ICD-10 - B35.1) Plan Of Treatment Next Appt Details Provider Name:Amy galindo, 10/15/2024 12:30:00 PM, [address] [place], [address], Insurance Providers Payer Name Payer Address Payer Phone Subscriber Number Group Number Insured Name Patient Relationship to Insured Coverage Start Date Coverage End Date Medicare [facility] [address] [facility] [place] [address] [id number] George Arshad Self - patient is the insured [facility] [address] [place] [address] [id number] George Arshad Self - patient is the insured Medical (General) History Medical History History ICD Code Back,Hip,and Knee pain Diabetic Heart disease Measles Mumps Chicken pox Surgical History Surgery Date(Month/Year) hernia Cardiac Catherization 10/2023 Hospitalization History Reason Date(Month/Year) [facility]- Tachycardia 04/2020
== END 2024-08-13 10:02 | disposition home or self-care (01) ==
LOC: HO.HMCH 09:28
PROVIDERS: PCP Internal Medicine; Visit Provider Internal Medicine
DX: E11.65 Type 2 diabetes mellitus with hyperglycemia (principal); I25.10 Atherosclerotic heart disease of native coronary artery without angina pectoris; N18.31 Chronic kidney disease, stage 3a; I10 Essential (primary) hypertension; E78.00 Pure hypercholesterolemia, unspecified; K21.9 Gastro-esophageal reflux disease without esophagitis; F41.1 Generalized anxiety disorder; R09.81 Nasal congestion

== ENCOUNTER → 2024-08-13 09:27 | Outpatient (BNVA) | payer MEDICARE, OTHER, SELFPAY | PROVIDERS: PCP Internal Medicine; Visit Provider Internal Medicine | DX: E11.65 Type 2 diabetes mellitus with hyperglycemia (principal); I25.10 Atherosclerotic heart disease of native coronary artery without angina pectoris; I12.9 Hypertensive chronic kidney disease with stage 1 through stage 4 chronic kidney disease, or unspecified chronic kidney disease; E11.22 Type 2 diabetes mellitus with diabetic chronic kidney disease; N18.31 Chronic kidney disease, stage 3a; E78.00 Pure hypercholesterolemia, unspecified; K21.9 Gastro-esophageal reflux disease without esophagitis; F41.1 Generalized anxiety disorder; R09.81 Nasal congestion | CPT/HCPCS: 96127; 99212 ==

== ENCOUNTER 2024-11-29 14:18 | Outpatient (AMB) | payer MEDICARE, OTHER, SELFPAY ==
--- NOTE | 2024-11-29 14:27 | A.OFFPC_ITS ---
Vital Signs 11/29/24 14:28 Height 5 ft 10 in Weight 193 lb 6 oz BMI 27.7 BP 120/60 Blood Pressure Location Lt brachial Position Sitting Pulse 60 Pulse Source Pulse Oximeter Temp 97.3 F Temp Source Temporal Artery Scan Pulse Oximetry (%) 94 Oxygen Delivery Method Room Air Intake Visit Reasons: DM Intake Note: Patient is here to follow up on DM. College Administrator Required: No Ground Support Equipment Assembler: Not Required per policy Accompanied by: Self / Same As Patient Allergies lorazepam (From Ativan) Allergy (Mild, Verified 11/29/24 14:28) UNKNOWN Tobacco use date assessed: 11/29/24 Fall risk assessment: No Falls in past year Last assessed Fall Risk: 11/29/24 Dental Screening Dental Screen Date: 05/14/24 [facility] Medical History Anemia On beta pedro at home Myocardial infarction Palpitations Pericarditis Coronary artery disease Pernicious anemia Type 2 diabetes mellitus with hyperglycemia Vitamin B12 deficiency Meningioma Chronic kidney disease (CKD) stage G3a/A1, moderately decreased glomerular filtration rate (GFR) between 45-59 mL/min/1.73 square meter and albuminuria creatinine ratio less than 30 mg/g GERD (gastroesophageal reflux disease) Tick bite of abdominal wall Hypercholesterolemia Hypertension Surgical History History of heart artery stent History of colonoscopy History of inguinal hernia repair Family History Father CHF (congestive heart failure) CAD (coronary artery disease) CVD (cardiovascular disease) Mother CHF (congestive heart failure) CVD (cardiovascular disease) Diabetes Social History Housing: House Alcohol intake: former Patient Tobacco Use Status: Never used Tobacco Tobacco use type: Cigarette e-Cigarette/Vaping Use: Never Used Second Hand Smoke Exposure: No service: No Current occupational status: retired Cognitive needs: No Hearing needs: No Vision needs: Yes Questionnaire Thrive Questionnaire Date Thrive assessed: 08/13/24 I am a: Patient What is your living situation today?: I have a steady place to live Within the past 12 months, did the food you bought not last and you didn't have the money to get more?: Never true Within the past 12 months, did you worry whether your food would run out before you got money to buy more?: Never true Do you have trouble paying for medicines?: No Do you have trouble getting transportation to medical appointments?: No Do you have trouble paying your heating and electricity bill?: No Do you have trouble taking care of your child, family member or friend?: No Do you have trouble with day-to-day activities such as bathing, preparing meals, shopping, managing finances, etc.?: No Are you currently unemployed and looking for a job?: No Are you interested in more education?: No Please select the resources that you would like help with: None Currently or been in a relationship where the following occur: No concerns reported THRIVE Score: 0 LIANNA-7 AMB Questionnaire LIANNA-7 Date LIANNA - 7 assessed: 05/14/24 Being so restless that it is hard to sit still: 0 = Not at all Becoming easily annoyed or irritable: 0 = Not at all Feeling afraid as if something awful might happen: 0 = Not at all Source: Developed by Drs. Jorge L Reyes, Yesi Weldon, Jose De Jesus Noble and colleagues, with an educational linus from [employer]. Physical exam (Primary Care) Vital Signs: Last Vital Signs Temp 97.3 F 11/29/24 14:28 Pulse 60 11/29/24 14:28 BP 120/60 11/29/24 14:28 Pulse Ox 94 11/29/24 14:28 Oxygen Delivery Method Room Air 11/29/24 14:28 BMI result Body Mass Index 27.7 Tobacco/Smoking Status: Tobacco use Status Tobacco use date assessed 11/29/24 11/29/24 14:35 Patient Tobacco Use Status Never used Tobacco 11/29/24 14:35 Tobacco use type Cigarette 11/29/24 14:35 e-Cigarette/Vaping Use Never Used 11/29/24 14:35 Thrive Assessment: Date of Thrive Assessment Date Thrive assessed 08/13/24 11/29/24 14:35 Currently or been in a relationship where the following occur: No concerns reported Const General: alert; No acute distress Eyes Conjunctivae: conjunctivae normal Resp Auscultation: clear to auscultation bilaterally Cardio Rate: regular rate Rhythm: regular rhythm GI Inspection: Yes normal to inspection Extrem General: Yes normal to inspection and No edema Results AMB Hemoglobin A1c AMB Hemoglobin A1c 6.5 % Last Edit by UMBERTO Galvez on 11/29/24 14:40 Results Reviewed Results Reviewed: Laboratory Last Values Hgb A1c (Clinic) 6.5 % (4.0-6.0) H 11/29/24 14:27 Coding Level of Care Code Est Pt Level 4 (38213) Complex EM visit Add On G2211 Diagnoses Type 2 diabetes mellitus with hyperglycemia, without long-term current use of insulin E11.65 Diabetes mellitus long term care phlebotomist insulin use: without long term care phlebotomist use Hypercholesterolemia E78.00 Coronary artery disease involving [place] coronary artery of [place] heart without angina pectoris I25.10 Associated angina: without angina Coronary Disease-Associated Artery/Lesion type: [place] artery [place] vs. transplanted heart: [place] heart Essential hypertension I10 Hypertension type: essential hypertension Gastroesophageal reflux disease without esophagitis K21.9 Esophagitis presence: without esophagitis Iron deficiency anemia D50.9 Generalized anxiety disorder F41.1 Assessment & Plan Assessment & Plan (1) Type 2 diabetes mellitus with hyperglycemia: Comment: EYE and LASIK/ (07/2024)[facility] Code(s): E11.65 - Type 2 diabetes mellitus with hyperglycemia Category: Medical Qualifiers: Diabetes mellitus long term care phlebotomist insulin use: without long term care phlebotomist use Qualified Code(s): E11.65 - Type 2 diabetes mellitus with hyperglycemia Plan: Decrease the amount of carbohydrate intake, pasta, bread, rice and potatoes are all sugar and that is aside from all the sweet stuff, remember that fruits are good but they are Sweet also. Hemoglobin A1c goal of less than 7.0. Patient on Jardiance 25 mg once a day glipizide 5 mg twice a day (2) Hypercholesterolemia: Code(s): E78.00 - Pure hypercholesterolemia, unspecified Category: Medical Plan: Avoid fried foods, chicken skin, eggs, butter margarine, pastries and meat. Be it pork or beef they have a lot of cholesterol LDL goal of less than 75 and triglyceride of less than 150 patient is on rosuvastatin LDL last blood work is April 2024 (3) Coronary artery disease: Comment: PCI of LAD January 2008 MRI January 2008 repeat drug-eluting stent LAD August 2012 , positive stress test April 2020 medical management Code(s): I25.10 - Atherosclerotic heart disease of [place] coronary artery without angina pectoris Category: Medical Qualifiers: Associated angina: without angina Coronary Disease-Associated Artery/Lesion type: [place] artery [place] vs. transplanted heart: [place] heart Qualified Code(s): I25.10 - Atherosclerotic heart disease of [place] coronary a rtery without angina pectoris Plan: Control the cholesterol, weight, blood pressure, diabetes continue with aspirin 81 mg once a day (4) Hypertension: Code(s): I10 - Essential (primary) hypertension Category: Medical Qualifiers: Hypertension type: essential hypertension Qualified Code(s): I10 - Essential (primary) hypertension Plan: Continue with blood pressure medication. Decrease salt intake and exercise on amlodipine 2.5 mg once a day isosorbide mononitrate lisinopril 2.5 mg once a day metoprolol tartrate 100 mg twice a day (5) GERD (gastroesophageal reflux disease): Code(s): K21.9 - Gastro-esophageal reflux disease without esophagitis Category: Medical Qualifiers: Esophagitis presence: without esophagitis Qualified Code(s): K21.9 - Gastro-esophageal reflux disease without esophagitis Plan: Avoid the foods that causes that usually spicy foods, tomato products, juices, coffee, soda and foods that your sensitive to. After eating do not lie down, allow 3-4 hours before in lie down. And keep the head of bed above 30 degrees to avoid the acid from going up. (6) Iron deficiency anemia: Code(s): D50.9 - Iron deficiency anemia, unspecified Category: Medical Plan: Continuing to monitor (7) Generalized anxiety disorder: Code(s): F41.1 - Generalized anxiety disorder Category: Medical Plan: Continue with present medication Plan History of Present Illness The patient is an 84-year-old male presenting for a follow-up visit. The patient has a history of diabetes mellitus, managed with a hemoglobin A1c goal of less than 7.0%. Current medications include Jardiance 25 mg once daily and glipizide 5 mg twice daily. The most recent hemoglobin A1c was 6.5%. Hypertension is managed with amlodipine 2.5 mg once daily, lisinopril 2.5 mg once daily, and metoprolol tartrate 100 mg twice daily. The patient also takes isosorbide mononitrate for coronary artery disease and aspirin 81 mg once daily. Hypercholesterolemia is managed with rosuvastatin, with an LDL goal of less than 100 mg/dL. The most recent LDL was 45 mg/dL in April 2024. The patient has a history of gastroesophageal reflux disease, which is being monitored with current medications. The patient is up to date with ophthalmology visits, with a recent finding of a small retinal hemorrhage in the left eye but no evidence of retinopathy. Cataracts are also present. Preventative care includes a colonoscopy last performed in July 2021, which revealed adenomas. Health Maintenance - Colonoscopy last performed in July 2021, revealed adenomas - Up to date with ophthalmology visits, noted small retinal hemorrhage, no retinopathy Social History Review of Systems Physical Exam Results - Labs: Hemoglobin A1c 6.5%, LDL 45 mg/dL (April 2024), mild thrombocytopenia, normal electrolytes, renal function 1.01 Plan The management plan for diabetes mellitus includes maintaining a hemoglobin A1c goal of less than 7.0% with current medications Jardiance and glipizide. For hypertension, the patient will continue on amlodipine, lisinopril, and metoprolol tartrate, with the addition of isosorbide mononitrate and aspirin for coronary artery disease management. Hypercholesterolemia management involves maintaining an LDL goal of less than 100 mg/dL, with rosuvastatin therapy. The patient will continue monitoring gastroesophageal reflux disease with current medications. Patient was informed and verbally consented to the use of an ambient scribe for clinic note documentation during this visit. Discussion Notes Patient Instructions Orders: Orders AMB Hemoglobin A1c Today E11.65 - Type 2 diabetes mellitus with hyperglycemia Comprehensive Met. Panel 4 Months E11. - Type 2 diabetes mellitus with hyperglycemia Free T4 (Free Thyroxine) 4 Months E11.65 - Type 2 diabetes mellitus with hyperglycemia Hemoglobin A1c 4 Months E11. - Type 2 diabetes mellitus with hyperglycemia Thyroid Stimulating Hormone 4 Months E11. - Type 2 diabetes mellitus with hyperglycemia Vitamin B12 and Folate 4 Months E11.65 - Type 2 diabetes mellitus with hyperglycemia Microalbumin, Random (w Creat) 4 Months E11.65 - Type 2 diabetes mellitus with hyperglycemia Complete Blood Count Auto Diff 4 Months E11. - Type 2 diabetes mellitus with hyperglycemia Vitamin D 25-OH Total 4 Months E11. - Type 2 diabetes mellitus with hyperglycemia Creatinine Urine 4 Months E11.65 - Type 2 diabetes mellitus with hyperglycemia
[2024-11-29 14:28] VITALS: BP 120/60; PULSE 60; TEMP 36.3; O2SAT 94; BMI 27.7
--- OUTSIDE RECORDS SUMMARY | 2024-11-29 14:49 | XMS_ITS | Patient Health Record ---
Author Organization [facility] Address [address] [place] [address] Care Team Providers Care Livestock Ranch Hand Name Role Phone Hiram Monge MD Primary Care Provider Jorge L Bhagat [phone] Allergies Allergen (clinical drug ingredient) Drug/Non Drug [...] Problem Status W/U Status Risk Notes Problem [id number] Encounter for screening for malignant neoplasm of colon (Z12.11) Active confirmed Problem 027230575 History of adenomatous polyp of colon (Z86.010) Active confirmed Problem 797560100 Long-term use of aspirin therapy (Z79.82) Active confirmed Problem Diverticulosis of colon (753335448) Diverticulosis of colon (K57.30) Active confirmed Plan Of Treatment Pending Test Test Name Order Date Pathology 08/15/2021 Future Test Test Name Order Date COLONOSCOPY 01/11/2014 COLONOSCOPY 07/10/2021 Insurance Providers Payer Name Payer Address Payer Phone Subscriber Number Group Number Insured Name Patient Relationship to Insured Coverage Start Date Coverage End Date MEDICARE OF [place] [address] [place] [address] [id number] YOHAN ALDRICH Self - patient is the insured [facility] INDEMNITY [address] [place] [address] [id number] YOHAN ALDRICH Self - patient is the insured Medical (General) History Medical History History ICD Code NIDDM [place]-2007--stents placed in 2007 and 3 Chronic kidney disease--sees Dr. Maurice Ny colonoscopy in 07/2003 w [facility] [place]--had previous tubular adenomas removed in the Hyperlipidemia Denies [place],CVA,Lung disease,renal disease Hypertension GERD Vitamin B12 deficiency Surgical History Surgery Date(Month/Year) Right inguinal hernia
--- OUTSIDE RECORDS SUMMARY | 2024-11-29 14:49 | XMS_ITS | Clinical Summary ---
Author Organization [facility] Address [address] [place] [address] Phone Care Team Providers Care Social Media Campaign Manager Name Role Phone Hiram Monge MD Primary Care Provider [phone] Allergies Active Allergy Reactions Criticality Noted Date [...] Visual Foot Exam 12/27/2021 Influenza Vaccine (#1) 2024 Pneumococcal Vaccine: 50+ Years Completed 05/19/2015, 05/19/2015, 01/19/2011 Pneumococcal Vaccine: Peds ( 0 to 5 Years) and At-Risk Patients (6 to 49 Years) Discontinued 05/19/2015, 05/19/2015, 01/19/2011 Hepatitis B Vaccine Aged Out No longe r eligible based on patient's age to complete this topic Insurance [facility] Medicare [facility] Medicare Care Teams Social Media Campaign Manager Relationship Specialty Start Date End Date Hiram Monge MD [address] [place], [place] PCP - General 05/01/20
== END 2024-11-29 15:12 | disposition home or self-care (01) ==
LOC: HO.HMCH 14:19
PROVIDERS: PCP Internal Medicine; Visit Provider Internal Medicine
DX: E11.65 Type 2 diabetes mellitus with hyperglycemia (principal); E78.00 Pure hypercholesterolemia, unspecified; I25.10 Atherosclerotic heart disease of native coronary artery without angina pectoris; I10 Essential (primary) hypertension; K21.9 Gastro-esophageal reflux disease without esophagitis; D50.9 Iron deficiency anemia, unspecified; F41.1 Generalized anxiety disorder

== ENCOUNTER → 2024-11-29 14:18 | Outpatient (BNVA) | payer MEDICARE, OTHER, SELFPAY | PROVIDERS: PCP Internal Medicine; Visit Provider Internal Medicine | DX: E11.65 Type 2 diabetes mellitus with hyperglycemia (principal); E78.00 Pure hypercholesterolemia, unspecified; I25.10 Atherosclerotic heart disease of native coronary artery without angina pectoris; I10 Essential (primary) hypertension; K21.9 Gastro-esophageal reflux disease without esophagitis; D50.9 Iron deficiency anemia, unspecified; F41.1 Generalized anxiety disorder | CPT/HCPCS: 83036; 99212 ==

== ENCOUNTER 2024-12-16 08:36 | Outpatient (REF) | payer MEDICARE, OTHER, SELFPAY ==
--- OUTSIDE RECORDS SUMMARY | 2024-10-15 08:30 | XMS_ITS ---
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 Name Role Phone Hiram Monge Primary Care Provider Amy Abrams Unavailable [phone] Allergies Allergen (clinical drug ingredient) Drug/Non Drug [...] Active Encounters Encounter Location Date Provider Diagnosis [facility] [place] [address] [place] [address] 10/15/2024 Amy Marshall Type 2 diabetes mellitus with diabetic peripheral angiopathy without gangrene E11.51 ; Atherosclerosis of [place] artery of both lower extremities, with unspecified [...] gangrene (ICD-10 - E11.51) 10/15/2024 Atherosclerosis of [place] artery of both lower extremities, with unspecified presence of clinical manifestation (ICD-10 - I70.203) 10/15/2024 Pain in toe of left foot (ICD-10 - M79.675) 10/15/2024 Pain in toe of right foot (ICD-10 - M79.674) 10/15/2024 Tinea unguium (ICD-10 - B35.1) Plan Of Treatment Next Appt Details Follow Up: 3 Months, Reason: Provider Name:Amy galindo, 01/21/2025 09:15:00 AM, [address] [place] [address], [phone], Procedure Notes * Category Sub-Category Detail Notes [...] use of a nail nipper and/or dremel-type scissors grinder, to a more viable healthy nail [...] to maintain effectiveness in symptomatic relief - 06584 Keratoma Treatment Parring or Cutting o f [...] instrumentation by the physician of record - 51963, Q8 Progress Notes * George ALDRICHDOB:1940 (84 yo M)Acc No.[id number]:10/15/2024 Progress Note Patient: George MUSE Provider: Key Marshall DPM :1940 A ge:83 Y S ex:Male Date:10/15/2024 Address:[address] [place], [place] [id number] Pcp:Hiram Monge Subjective: * Chief Complaints: * [...] E11.51 (Primary) 2 . A therosclerosis of [place] artery of both lower extremities, with unspecified [...] of a nail nipper and/or dremel- type scissors grinder, to a more viable healthy nail [...] to maintain effectiveness in symptomatic relief - 26621. K eratoma Treatment: Parring or Cutting of [...] instrumentation by the physician of record - 85578, Q8. * Procedure Codes: 1 1721 DEBRIDE NAIL, 6 OR MORE, Modifiers: XS , 86535 TRIM SKIN LESIONS, 2 TO 4, Modifiers: [...] 10/15/2024 Generated for Gregory ramirez/Fauzia/Keren on: 0 12/16/2024 09:15 AM EDT History and Physical Notes * [...]
--- OUTSIDE RECORDS SUMMARY | 2024-10-20 09:30 | XMS_ITS ---
Author Organization [facility] Hanna [place] Address [address] [place] [address] Care Team Providers Care Speech Communication Instructor Name Role Phone Hiram Monge Primary Care Provider Amy Abrams Unavailable [phone] Kenia Saez [phone] Encounters Encounter Location Date Provider Diagnosis [address] [address] 10/20/2024 Kenia Saez Plan Of Treatment Next Appt Details Provider Name:Amy galindo, 01/21/2025 09:15:00 AM, [address] [place], [address], Progress Notes * George ALDRICHDOB:1940 (84 yo M)Acc No.[id number]:10/20/2024 Progress Note Patient: George MUSE Provider: Dimple Saez DPM :1940 A ge:83 Y S ex:Male Date:10/20/2024 Address:[address] [place], [place] [address] Pcp:Hiram Monge Subjective: * Chief Complaints: * * Medical History: Objective: * Vitals: Assessment: Plan: * Treatment: * Images: * The named appointment provid er may or may not be the originator of this progress note, and it is not deemed complete until electronically signed by the appointment provider. Sign off status: Pending * Provider: Dimple Saez DPM Date: 0 10/20/2024 Generated for Gregory ramirez/Fauzia/Keren on: 0 12/16/2024 09:16 AM EDT
--- OUTSIDE RECORDS SUMMARY | 2024-12-16 09:16 | XMS_ITS | Patient Health Record ---
Author Organization [facility] Address [address] [place] [address] Care Team Providers Care Wireless Operator Name Role Phone Hiram Monge MD Primary Care Provider Jorge L Bhagat [phone] Allergies Allergen (clinical drug ingredient) Drug/Non Drug [...] Problem Status W/U Status Risk Notes Problem [id number] Encounter for screening for malignant neoplasm of colon (Z12.11) Active confirmed Problem 371558669 History of adenomatous polyp of colon (Z86.010) Active confirmed Problem 929511007 Long-term use of aspirin therapy (Z79.82) Active confirmed Problem Diverticulosis of colon (798199395) Diverticulosis of colon (K57.30) Active confirmed Plan Of Treatment Pending Test Test Name Order Date Pathology 08/15/2021 Future Test Test Name Order Date COLONOSCOPY 01/11/2014 COLONOSCOPY 07/10/2021 Insurance Providers Payer Name Payer Address Payer Phone Subscriber Number Group Number Insured Name Patient Relationship to Insured Coverage Start Date Coverage End Date MEDICARE OF [place] [address] [place] [address] [id number] YOHAN ALDRICH Self - patient is the insured [facility] [address] [place] [address] [id number] YOHAN ALDRICH Self - patient is the insured Medical (General) History Medical History History ICD Code NIDDM [place]-2007--stents placed in 2007 and 3 Chronic kidney disease--sees Dr. Maurice Ny colonoscopy in 07/2003 w ori [place]--had previous tubular adenomas removed in the Hyperlipidemia Denies [place],CVA,Lung disease,renal disease Hypertension GERD Vitamin B12 deficiency Surgical History Surgery Date(Month/Year) Right inguinal hernia
--- OUTSIDE RECORDS SUMMARY | 2024-12-16 09:16 | XMS_ITS | Clinical Summary ---
Author Organization [facility] Address [address] [place] [address] Phone Care Team Providers Care Radiological Metallurgist Name Role Phone Hiram Monge MD Primary Care Provider [phone] Allergies Active Allergy Reactions Criticality Noted Date [...] patient's age to complete this topic Insurance [facility] Medicare [facility] Medicare Care Teams Radiological Metallurgist Relationship Specialty Start Date End Date Hiram Monge MD [address] [place], [place] PCP - General 05/01/20
--- OUTSIDE RECORDS SUMMARY | 2024-12-16 09:16 | XMS_ITS | Patient Health Record ---
Author Organization [facility] [place] Address [address] [facility] [place] [address] Care Team Providers Care Analytics Intern Name Role Phone Hiram Monge Primary Care Provider Amy Abrams Unavailable [phone] Kenia Saez Unavailable [phone] Allergies Allergen (clinical drug ingredient) Drug/Non Drug [...] Duration) Notes Start Date End Date Status Ferrous Sulfate 325 (65 Fe) MG 1 tablet Orally Once a day; Duration: 30 day(s) Active Jardiance 25 MG 1 tablet Orally Once a day; Duration: 30 days Active Isosorbide Dinitrate 90mg Active Fenofibrate 160 MG 1 tablet Orally Once a day; Duration: 30 day(s) Not-Taking Ascorbic Acid 500 MG 1 tablet Orally Onc e a day; Duration: 30 day(s) Active Aspirin 81 81 MG 1 tablet Orally Once a day; Duration: 30 day(s) Active Omeprazole 40 MG 1 capsule 30 minutes before morning meal Orally Once a day; Duration: 30 day(s) Active Metoprolol Tartrate 100 MG 1 tablet with food Orally Twice a day; Duration: 30 day(s) Active glipiZIDE 5 MG 1 tablet 30 minutes before breakfast Orally Once a day; Duration: 30 day(s) Active amLODIPine Benzoate 2.5mg Active Folic Acid 1 MG 1 tablet Orally Once a day; Duration: 30 day(s) Active Lisinopril 2.5 MG 1 tablet Orally Once a day; Duration: 30 day(s) Active Rosuvastatin Calcium 40 MG 1 tablet Orally Once a day; Duration: 30 day(s) Active Immunizations Vaccine Route Administration Date Status Comme nts Influenza Unknown 02/17/2020 Administered Influenza Unknown 12/20/2021 Administered Influenza Unknown 02/19/2023 Administered Influenza Unknown 12/21/2023 Administered COVID-19 Pfizer BioNTech Vaccine Unknown 01/12/2021 Administered #1 05/23/20 #2 06/13/20 Social History Tobacco Use: Social History Observation [...] Type 2 diabetes mellitus with peripheral angiopathy (057732348) Type 2 diabetes mellitus with diabetic peripheral angiopathy without gangrene (E11.51) Active confirmed Problem 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, with unspecified presence of clinical manifestation (I70.203) Active confirmed Vital Signs Blood pressure diastolic 60 mm Hg 10/19/2024 Height 5 ft 10 in in 10/19/2024 Blood pressure systolic 102 mm Hg 10/19/2024 Weight 195 lbs 10/19/2024 BMI 27.98 kg/m2 10/19/2024 Encounters Encounter Location Date Provider [facility] [address] [place] [address] 02/06/2024 Amy Marshall Type 2 diabetes mellitus with diabetic peripheral angiopathy without gangrene E11.51 ; 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, with unspecified presence of clinical manifestation I70.203 ; Pain in toe of left foot M79.675 ; Pain in toe of right foot M79.674 and Tinea unguium B35.[address] [address] 07/16/2024 Amy Beverlyjosie Type 2 diabetes mellitus with diabetic peripheral angiopathy without gangrene E11.51 ; 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, with unspecified presence of clinical manifestation I70.203 ; Pain in toe of left foot M79.675 ; Pain in toe of right foot M79.674 and Tinea unguium B35.[address] [address] 10/19/2024 Amy Marshall Type 2 diabetes mellitus with diabetic peripheral angiopathy without gangrene E11.51 ; Ingrown nail L60.0 ; 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, with unspecified presence of clinical manifestation I70.203 ; Pain in toe of left foot M79.675 ; Pain in toe of right foot M79.674 and Tinea unguium B35.[address] [address] 05/12/2024 Amy Marshall [address] [address] 10/15/2024 Amy Marshall Assessments Encounter Date Diagnosis (ICD Code) Assessment Notes Treatment Notes Treatment Clinical Notes Section Notes 02/06/2024 Type 2 diabetes mellitus with diabetic peripheral angiopathy without gangrene (ICD-10 - E11.51) 07/16/2024 Type 2 diabetes mellitus with diabetic peripheral angiopathy without gangrene (ICD-10 - E11.51) 10/19/2024 Type 2 diabetes mellitus with diabetic peripheral angiopathy without gangrene (ICD-10 - E11.51) 10/19/2024 Ingrown nail (ICD-10 - L60.0) 10/19/2024 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, with unspecified presence of clinical manifestation (ICD-10 - I70.203) 07/16/2024 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, with unspecified presence of clinical manifestation (ICD-10 - I70.203) 02/06/2024 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, with unspecified presence of clinical manifestation (ICD-10 - I70.203) 02/06/2024 Pain in toe of left foot (ICD-10 - M79.675) 07/16/2024 Pain in toe of left foot (ICD-10 - M79.675) 10/19/2024 Pain in toe of left foot (ICD-10 - M79.675) 10/19/2024 Pain in toe of right foot (ICD-10 - M79.674) 07/16/2024 Pain in toe of right foot (ICD-10 - M79.674) 02/06/2024 Pain in toe of right foot (ICD-10 - M79.674) 02/06/2024 Tinea unguium (ICD-10 - B35.1) 07/16/2024 Tinea unguium (ICD-10 - B35.1) 10/19/2024 Tinea unguium (ICD-10 - B35.1) Plan Of Treatment Next Appt Details Provider Name:Amy galindo, 01/21/2025 09:15:00 AM, [address] [facility], [place], [address], Insurance Providers Payer Name Payer Address Payer Phone Subscriber Number Group Number Insured Name Patient Relationship to Insured Coverage Start Date Coverage End Date Medicare National [employer]t S[employer] [address] [place] [address] [id number] George Arshad Self - patient is the insured [employer] [facility] [address] [place] [address] [id number] Jeancarlos George Self - patient is the insured Medical (General) History Medical History History ICD Code Back,Hip,and Knee pain Diabetic Heart disease Measles Mumps Chicken pox Surgical History Surgery Date(Month/Year) hernia Cardiac Catherization 10/2023 Hospitalization History Reason Date(Month/Year) [facility]- Tachycardia 04/2020
[2024-12-16 10:49] LABS: Anion Gap 9 (12-20); Blood Urea Nitrogen 19 mg/dL (9-16); Calcium 9.0 mg/dL (8.4-10.2); Carbon Dioxide 28 mmol/L (22-29); Chloride 109 mmol/L (96-108); Estimated Glomerular Filt Rate 57; Potassium 4.1 mmol/L (3.3-5.1); Sodium 142 mmol/L (135-145)
[2024-12-16 11:04] LABS: Total Protein Urine Random < 7 mg/dL (<12)
== END 2024-12-16 08:37 | disposition home or self-care (01) ==
LOC: HO.HMGCLDS 08:36
PROVIDERS: PCP Internal Medicine; Visit Provider Internal Medicine Nephrology
DX: I12.9 Hypertensive chronic kidney disease with stage 1 through stage 4 chronic kidney disease, or unspecified chronic kidney disease (principal); N18.31 Chronic kidney disease, stage 3a; N20.0 Calculus of kidney
CPT/HCPCS: 36415; 80051; 82310; 82565; 82570; 84156; 84520

== ENCOUNTER 2024-12-29 09:33 | Outpatient (AMB) | payer MEDICARE, OTHER, SELFPAY ==
--- OUTSIDE RECORDS SUMMARY | 2024-05-14 05:00 | XMS_ITS ---
Author Organization [facility] Address [address] [place] [address] Care Team Providers Care Director Of Loss Prevention Name Role Phone Hiram Monge Primary Care Provider Amy Abrams Unavailable [phone] Allergies Allergen (clinical drug ingredient) Drug/Non Drug Allergy documented on EMR Reaction Allergy Type Onset Date Status ibuprofen Advil kidney failure Drug Allergy Ac tive Aleve kidney failure Drug Allergy Ac tive lorazepam Ativan hyperactive Drug Allergy Activ e morphine Morphine Sulfate nausea Drug Allergy Active Motrin kidney failure Drug Allergy Ac tive Medications Medication SIG (Take, Route, Frequency, Duration) Notes Start Date End Date Status Ascorbic Acid 500 MG 1 tablet Orally Onc e a day; Duration: 30 day(s) Active Ferrous Sulfate 325 (65 Fe) MG 1 tablet Orally Once a day; Duration: 30 day(s) Active amLODIPine Benzoate 2.5mg Active Isosorbide Dinitrate 90mg Active Fenofibrate 160 MG 1 tablet Orally Once a day; Duration: 30 day(s) Not-Taking Rosuvastatin Calcium 40 MG 1 tablet Orally Once a day; Duration: 30 day(s) Active glipiZIDE 5 MG 1 tablet 30 minutes before breakfast Orally Once a day; Duration: 30 day(s) Active Folic Acid 1 MG 1 tablet Orally Once a day; Duration: 30 day(s) Active Metoprolol Tartrate 100 MG 1 tablet with food Orally Twice a day; Duration: 30 day(s) Active Lisinopril 2.5 MG 1 tablet Orally Once a day; Duration: 30 day(s) Active Jardiance 25 MG 1 tablet Orally Once a day; Duration: 30 days Active Aspirin 81 81 MG 1 tablet Orally Once a day; Duration: 30 day(s) Active Omeprazole 40 MG 1 capsule 30 minutes before morning meal Orally Once a day; Duration: 30 day(s) Active Encounters Encounter Location Date Provider Diagnosis [facility] [address] [address] 05/14/2024 Amy Marshall Plan Of Treatment Next Appt Details Provider Name:Amy galindo, 01/21/2025 09:15:00 AM, [address] [place] [address], [id number], Progress Notes * George ALDRICHDOB:1940 (84 yo M)Acc No.[id number]:05/14/2024 Progress Note Patient: George MUSE Jenny Provider: Key Marshall DPM :1940 A ge:83 Y S ex:Male Date:05/14/2024 Address:[address] [place], [place] [id number] Pcp:Hiram Monge Subjective: * Chief Complaints: * * Medical History: B ack,Hip,and Knee pain, Diabetic, Heart disease, Measles, Mumps, Chicken pox. * Medications: T aking amLODIPine Benzoate , Notes to Pharmacist: 2.5mg, Taking Isosorbide Dinitrate , Notes to Pharmacist: 90mg, Taking Ascorbic Acid 500 MG Tablet Chewable 1 tablet Orally Once a day , Taking Ferrous Sulfate 325 (65 Fe) MG Tablet 1 tablet Orally Once a day , Taking Jardiance 25 MG Tablet 1 tablet Orally Once a day , Taking Aspirin 81 81 MG Tablet Delayed Release 1 tablet Orally Once a day , Taking Omeprazole 40 MG Capsule Delayed Release 1 capsule 30 minutes before morning meal Orally Once a day , Taking Metoprolol Tartrate 100 MG Tablet 1 tablet with food Orally Twice a day , Taking Lisinopril 2.5 MG Tablet 1 tablet Orally Once a day , Taking Rosuvastatin Calcium 40 MG Tablet 1 tablet Orally Once a day , Taking glipiZIDE 5 MG Tablet 1 tablet 30 minutes before breakfast Orally Once a day , Taking Folic Acid 1 MG Tablet 1 tablet Orally Once a day , Not-Taking/PRN Fenofibrate 160 MG Tablet 1 tablet Orally Once a day * Allergies: A dvil: kidney failure, Aleve: kidney failure, Motrin: kidney failure, Morphine Sulfate: nausea, Ativan: hyperactive. Objective: * Vitals: Assessment: Plan: * Treatment: * Images: * The named appointment provid er may or may not be the originator of this progress note, and it is not deemed complete until electronically signed by the appointment provider. Sign off status: Pending * Provider: Key Marshall DPM Date: 0 05/14/2024 Generated for Gregory ramirez/Fauzia/Keren on: 0 12/29/2024 11:27 AM EDT
--- OUTSIDE RECORDS SUMMARY | 2024-10-15 08:30 | XMS_ITS ---
Author Organization [facility] maura [place] Address [address] [facility] [place] [address] Care Team Providers Care Industrial Roof Plumber Name Role Phone Hiram Monge Primary Care Provider Amy Abrams Unavailable [phone] Allergies Allergen (clinical drug ingredient) Drug/Non Drug [...] Duration) Notes Start Date End Date Status Rosuvastatin Calcium 40 MG 1 tablet Orally Once a day; Duration: 30 day(s) Active amLODIPine Benzoate 2.5mg Active Folic Acid 1 MG 1 tablet Orally Once a day; Duration: 30 day(s) Active glipiZIDE 5 MG 1 tablet 30 minutes before breakfast Orally Once a day; Duration: 30 day(s) Active Fenofibrate 160 MG 1 tablet Orally Once a day; Duration: 30 day(s) Not-Taking Metoprolol Tartrate 100 MG 1 tablet with food Orally Twice a day; Duration: 30 day(s) Active Omeprazole 40 MG 1 capsule 30 minutes before morning meal Orally Once a day; Duration: 30 day(s) Active Lisinopril 2.5 MG 1 tablet Orally Once a day; Duration: 30 day(s) Active Aspirin 81 81 MG 1 tablet Orally Once a day; Duration: 30 day(s) Active Jardiance 25 MG 1 tablet Orally Once a day; Duration: 30 days Active Isosorbide Dinitrate 90mg Active Ferrous Sulfate 325 (65 Fe) MG 1 tablet Orally Once a day; Duration: 30 day(s) Active Ascorbic Acid 500 MG 1 tablet Orally Onc e a day; Duration: 30 day(s) Active Encounters Encounter Location Date Provider Diagnosis [facility] [place] [address] [place] [address] 10/15/2024 Amy Marshall Type 2 diabetes mellitus with diabetic peripheral angiopathy without gangrene E11.51 ; Atherosclerosis of [place] artery of both lower extremities, with unspecified presence of clinical manifestation I70.203 ; Pain in toe of left foot M79.675 ; Pain in toe of right foot M79.674 and Tinea unguium B35.1 Assessments Encounter Date Diagnosis (ICD Code) Assessment Notes Treatment Notes Treatment Clinical Notes Section Notes 10/15/2024 Type 2 diabetes mellitus with diabetic peripheral angiopathy without gangrene (ICD-10 - E11.51) 10/15/2024 Atherosclerosis of [place] artery of both lower extremities, with unspecified presence of clinical manifestation (ICD-10 - I70.203) 10/15/2024 Pain in toe of left foot (ICD-10 - M79.675) 10/15/2024 Pain in toe of right foot (ICD-10 - M79.674) 10/15/2024 Tinea unguium (ICD-10 - B35.1) Plan Of Treatment Next Appt Details Follow Up: 3 Months, Reason: Provider Name:Amy galindo, 01/21/2025 09:15:00 AM, [address] [place] [address], [phone], Procedure Notes * Category Sub-Category Detail Notes [...] use of a nail nipper and/or dremel-type centerless grinder tender, to a more viable healthy nail plate [...] to maintain effectiveness in symptomatic relief - 12301 Keratoma Treatment Parring or Cutting o f [...] instrumentation by the physician of record - 67620, Q8 Progress Notes * George ALDRICHDOB:1940 (84 yo M)Acc No.[id number]:10/15/2024 Progress Note Patient: George MUSE Provider: Key Marshall DPM :1940 A ge:83 Y S ex:Male Date:10/15/2024 Address:[address] [place], [place] [id number] Pcp:Hiram Monge Subjective: * Chief Complaints: * 1 . At Risk Footcare. 2. Painful Nail(s) aggrevated by shoes and causing difficulty standing/walking.. * HPI: A t Risk footcare: Pt States Last PCP Visit: D ate 1 * Medical History: B ack,Hip,and Knee pain, [...] Sulfate: nausea, Ativan: hyperactive. Objective: * Vitals: * Examination: O phthalmology Referral: DIABETES EYE EXAM P rocedure Performed: Y es D ate of Exam Performed 0 12/21/2023 F indings of Diabetic Eye Exam: n o retinopathy V ascular: DP PULSES (B): 0 /4, B/L. PT PULSES (B): 0 /4, B/L. CAPILLARY FILL TIME: d elayed, all digits, B/L. TROPHIC CONDITION-TEXTURE/ELASTICITY/TURGOR/HAIR GROWTH (B):?decreased, B/L. TEMPERTURE GRADIENT (C): d ecreased, cool to cool, proximal to distal, B/L. PIGMENTATION: p long, B/L. EDEMA (C): a bsent, B/L. N ails: NAILS are: T A, T1, T2, T3, T4, T5, T6, T7, T8, T9, Elongated, overgrown, dystrophic, lytic, greater than 3mm thick, discolored and friable with crumbly malodorous subungual debris, with pain on palpation. D ermatologic: SKIN FINDINGS: S kin exam reveals Keratotic lesion(s) located at TA, T5 , Medial plantar. Assessment: * Assessment: 1. T ype 2 diabetes mellitus with diabetic peripheral angiopathy without gangrene - E11.51 (Primary) 2 . A therosclerosis of cata[place] artery of both lower extremities, with unspecified presence of clinical manifestation - I70.203 3 . P ain in toe of left foot - M79.675 4 . P ain in toe of right foot - M79.674 5 . T inea unguium - B35.1 Plan: * Treatment: * Procedures: D ebride Nail 6-10: Nail debridement D ue to the clinical pathology outlined in the [...] the use of a nail nipper and/or dremel- type centerless grinder tender, to a more viable healthy nail plate [...] to maintain effectiveness in symptomatic relief - 54096. K eratoma Treatment: Parring or Cutting of Benign Hyperkeratotic Lesion(s) ( -56) 2-4 Lesions - Due to the at [...] instrumentation by the physician of record - 77314, Q8. * Procedure Codes: 1 1721 DEBRIDE NAIL, 6 OR MORE, Modifiers: XS , 14392 TRIM SKIN LESIONS, 2 TO 4, Modifiers: XS , Q8 * Follow Up: 3 Months * Images: * The named appointment provid er may or may not be the originator of this progress note, and it is not deemed complete until electronically signed by the appointment provider. Sign off status: Pending * Provider: Key Marshall, DPM Date: 0 10/15/2024 Generated for Gregory ramirez/Fauzia/Keren on: 0 12/29/2024 11:26 AM EDT History and Physical Notes * HPI (History of Present Illness) Category Sub-Category Detail Notes Category Not es At Risk footcare Pt States Last PCP Visit: Date: Examination Category Sub-Category Detail Notes Category Not es Dermatologic SKIN FINDINGS: Skin exam reveal s Keratotic lesion(s) located at TA, T5 , Medial plantar Ophthalmology Referral DIABETES EYE EXAM Procedu re Performed:: Yes Date of Exam Performed: 12/21/2023 Findings of Diabetic [...]
--- OUTSIDE RECORDS SUMMARY | 2024-10-20 09:30 | XMS_ITS ---
Author Organization [facility] Hanna [place] Address [address] [place] [address] Care Team Providers Care Management Manager Name Role Phone Hiram Monge Primary Care Provider Amy Abrams Unavailable [phone] Kenia Saez [phone] Encounters Encounter Location Date Provider Diagnosis [address] [address] 10/20/2024 Kenia Saez Plan Of Treatment Next Appt Details Provider Name:Amy galindo, 01/21/2025 09:15:00 AM, [address] [place], [address], Progress Notes * George ALDRICHDOB:1940 (84 yo M)Acc No.[id number]:10/20/2024 Progress Note Patient: George MUSE Provider: Dimple Saez DPM :1940 A ge:83 Y S ex:Male Date:10/20/2024 Address:[address] [place], [place] [address] Pcp:Hiram Monge Subjective: * Chief Complaints: * [...] 10/20/2024 Generated for Gregory ramirez/Fauzia/Keren on: 0 12/29/2024 11:27 AM EDT
--- NOTE | 2024-12-29 09:41 | HO.NEPHOV ---
Vital Signs 12/29/24 09:42 Height 5 ft 10 in Weight 194 lb BMI 27.8 BP 104/60 Blood Pressure Location Lt brachial Position Sitting Pulse 60 Pulse Source Pulse Oximeter Pulse Oximetry (%) 97 Oxygen Delivery Method Room Air Intake Visit Reasons: 6 MO FU-LVM Allergies lorazepam (From Ativan) Allergy (Mild, Verified 12/29/24 09:42) UNKNOWN HPI Comments Details: George was seen in follow-up of his chronic kidney disease and hypertension. He has history of coronary artery disease and had undergone stenting in the past. He recently had left arm pain and had cardiac cath- WNL. He is diabetic as well. His blood sugars are well controlled. He is on Jardiance. He is tolerating JESUS inhibitor. He is closely followed up by his plant security guard. He is on statins. He does not have any myalgia. He denies chest pain, shortness of breath, orthostatic symptoms, palpitation, pedal edema or urinary symptoms. He does not take any nonsteroidal anti-inflammatories. His renal functions have been stable. [facility] Medical History Anemia On beta pedro at home Myocardial infarction Palpitations Pericarditis Coronary artery disease Pernicious anemia Type 2 diabetes mellitus with hyperglycemia Vitamin B12 deficiency Meningioma Chronic kidney disease (CKD) stage G3a/A1, moderately decreased glomerular filtration rate (GFR) between 45-59 mL/min/1.73 square meter and albuminuria creatinine ratio less than 30 mg/g GERD (gastroesophageal reflux disease) Tick bite of abdominal wall Hypercholesterolemia Hypertension Surgical History History of heart artery stent History of colonoscopy History of inguinal hernia repair Family History Father CHF (congestive heart failure) CAD (coronary artery disease) CVD (cardiovascular disease) Mother CHF (congestive heart failure) CVD (cardiovascular disease) Diabetes Social History Housing: House Alcohol intake: former Patient Tobacco Use Status: Never used Tobacco Tobacco use type: Cigarette e-Cigarette/Vaping Use: Never Used Second Hand Smoke Exposure: No service: No Current occupational status: retired Cognitive needs: No Hearing needs: No Vision needs: Yes Review of Systems Const All systems reviewed & are unremarkable except as noted in HPI and below Physical Exam Vital Signs: Last Vital Signs Pulse 60 12/29/24 09:42 BP 104/60 12/29/24 09:42 Pulse Ox 97 12/29/24 09:42 Oxygen Delivery Method Room Air 12/29/24 09:42 BMI result Body Mass Index 27.8 Const General: comfortable and no acute distress Orientation/consciousness: patient oriented x3 HEENT Head: Yes normocephalic Mouth: Normal oral and palatal mucosa present Eyes EOM: EOMs intact bilaterally Neck Neck: Yes supple Resp Auscultation: clear to auscultation bilaterally Cardio Jugular venous distension: no JVD Rate: regular rate GI Palpation (GI): Soft to palpation Auscultation: normal bowel sounds General: Yes no CVA tenderness Back/Spine/Pelvis Back: no CVA tenderness Skin General skin exam: no rashes or lesions noted Neuro General: patient oriented x3 and moves all extremities Extrem General: Yes no pedal edema Results Reviewed Nephrology Results: Sodium, (135-145) 142 mmol/L 12/16/24 Potassium, (3.3-5.1) 4.1 mmol/L 12/16/24 Chloride, (96-108) 109 mmol/L H 12/16/24 Carbon Dioxide, (22-29) 28 mmol/L 12/16/24 BUN, (9-16) 19 mg/dL H 12/16/24 Creatinine, (0.5-1.4) 1.21 mg/dL 12/16/24 Calcium, (8.4-10.2) 9.0 mg/dL 12/16/24 Urine Creatinine 88.06 mg/dL 12/16/24 Protein/Creatinin Ratio TNP 12/16/24 Assessment & Plan Assessment & Plan (1) Hypertension: Code(s): I10 - Essential (primary) hypertension Category: Medical Qualifiers: Hypertension type: essential hypertension Qualified Code(s): I10 - Essential (primary) hypertension (2) Chronic kidney disease (CKD) stage G3a/A1, moderately decreased glomerular filtration rate (GFR) between 45-59 mL/min/1.73 square meter and albuminuria creatinine ratio less than 30 mg/g: Code(s): N18.31 - Chronic kidney disease, stage 3a Category: Medical (3) Left renal stone: Comment: July 2022 Code(s): N20.0 - Calculus of kidney Category: Medical Plan George has CKD stage 3 and hypertension. His renal functions are stable. His blood pressure is at goal. He needs to lose some weight. He is on Jardiance. He most likely has some renovascular disease as well. He is tolerating JESUS inhibitor. He avoids nonsteroidal anti-inflammatories and maintain good hydration. I did not make any medication changes today. All questions answered. Follow-up blood work ordered and follow-up appointment given. Orders: Orders Electrolytes 7 Months I10 - Essential (primary) hypertension, N18.31 - Chronic kidney disease, stage 3a, N20.0 - Calculus of kidney Blood Urea Nitrogen 7 Months I10 - Essential (primary) hypertension, N18.31 - Chronic kidney disease, stage 3a, N20.0 - Calculus of kidney Creatinine 7 Months I10 - Essential (primary) hypertension, N18.31 - Chronic kidney disease, stage 3a, N20.0 - Calculus of kidney Coding Level of Care Code Est Pt Level 4 (91639) Diagnoses Essential hypertension I10 Hypertension type: essential hypertension Chronic kidney disease (CKD) stage G3a/A1, moderately decreased glomerular filtration rate (GFR) between 45-59 mL/min/1.73 square meter and albuminuria creatinine ratio less than 30 mg/g N18.31 Left renal stone N20.0
--- NOTE | 2024-12-29 09:41 | HO.NEPHOV ---
Vital Signs 12/29/24 09:42 Height 5 ft 10 in Weight 194 lb BMI 27.8 BP 104/60 Blood Pressure Location Lt brachial Position Sitting Pulse 60 Pulse Source Pulse Oximeter Pulse Oximetry (%) 97 Oxygen Delivery Method Room Air Intake Visit Reasons: 6 MO FU-[facility] Outdoor Recreation Specialist Required: No Accompanied by: Self / Same As Patient Allergies lorazepam (From Ativan) Allergy (Mild, Verified 12/29/24 09:42) UNKNOWN [facility] Medical History Anemia On beta pedro at home Myocardial infarction Palpitations Pericarditis Coronary artery disease Pernicious anemia Type 2 diabetes mellitus with hyperglycemia Vitamin B12 deficiency Meningioma Chronic kidney disease (CKD) stage G3a/A1, moderately decreased glomerular filtration rate (GFR) between 45-59 mL/min/1.73 square meter and albuminuria creatinine ratio less than 30 mg/g GERD (gastroesophageal reflux disease) Tick bite of abdominal wall Hypercholesterolemia Hypertension Surgical History History of heart artery stent History of colonoscopy History of inguinal hernia repair Family History Father CHF (congestive heart failure) CAD (coronary artery disease) CVD (cardiovascular disease) Mother CHF (congestive heart failure) CVD (cardiovascular disease) Diabetes Social History Housing: House Alcohol intake: former Patient Tobacco Use Status: Never used Tobacco Tobacco use type: Cigarette e-Cigarette/Vaping Use: Never Used Second Hand Smoke Exposure: No service: No Current occupational status: retired Cognitive needs: No Hearing needs: No Vision needs: Yes Results Reviewed Nephrology Results: Sodium, (135-145) 142 mmol/L 12/16/24 Potassium, (3.3-5.1) 4.1 mmol/L 12/16/24 Chloride, (96-108) 109 mmol/L H 12/16/24 Carbon Dioxide, (22-29) 28 mmol/L 12/16/24 BUN, (9-16) 19 mg/dL H 12/16/24 Creatinine, (0.5-1.4) 1.21 mg/dL 12/16/24 Calcium, (8.4-10.2) 9.0 mg/dL 12/16/24 Urine Creatinine 88.06 mg/dL 12/16/24 Protein/Creatinin Ratio TNP 12/16/24 Coding
[2024-12-29 09:42] VITALS: BP 104/60; PULSE 60; O2SAT 97; BMI 27.8
--- OUTSIDE RECORDS SUMMARY | 2024-12-29 11:27 | XMS_ITS | Clinical Summary ---
Author Organization [facility] Address [address] [place] [address] Phone Care Team Providers Care Ship Scraper Name Role Phone Hiram Monge MD Primary Care Provider [phone] Allergies Active Allergy Reactions Criticality Noted Date [...] to complete this topic Insurance [facility] Medicare [facility] Medicare Care Teams Ship Scraper Relationship Specialty Start Date End Date Hiram Monge MD [address] [place], [place] PCP - General 05/01/20
--- OUTSIDE RECORDS SUMMARY | 2024-12-29 11:27 | XMS_ITS | Patient Health Record ---
Author Organization [facility] Address [address] [place] [address] Care Team Providers Care Nurse Extern Name Role Phone Hiram Monge MD Primary Care Provider Jorge L Bhagat [phone] Allergies Allergen (clinical drug ingredient) Drug/Non Drug [...] Problem Status W/U Status Risk Notes Problem 205112195 Encounter for screening for malignant neoplasm of colon (Z12.11) Active confirmed Problem 519447146 History of adenomatous polyp of colon (Z86.010) Active confirmed Problem 572440658 Long-term use of aspirin therapy (Z79.82) Active confirmed Problem Diverticulosis of colon (486300433) Diverticulosis of colon (K57.30) Active confirmed Plan Of Treatment Pending Test Test Name Order Date Pathology 08/15/2021 Future Test Test Name Order Date COLONOSCOPY 01/11/2014 COLONOSCOPY 07/10/2021 Insurance Providers Payer Name Payer Address Payer Phone Subscriber Number Group Number Insured Name Patient Relationship to Insured Coverage Start Date Coverage End Date MEDICARE OF [place] [address] [place] [address] [id number] YOHAN ALDRICH Self - patient is the insured [facility] [address] [place] [address] [id number] YOHAN ALDRICH Self - patient is the insured Medical (General) History Medical History History ICD Code NIDDM [place]-2007--stents placed in 2007 and 3 Chronic kidney disease--sees Dr. Maurice Ny colonoscopy in 07/2003 w ori [place]--had previous tubular adenomas removed in the Hyperlipidemia Denies [place],CVA,Lung disease,renal disease Hypertension GERD Vitamin B12 deficiency Surgical History Surgery Date(Month/Year) Right inguinal hernia
--- OUTSIDE RECORDS SUMMARY | 2024-12-29 11:28 | XMS_ITS | Patient Health Record ---
Author Organization [facility]aura [place] Address [address] [place] [address] Care Team Providers Care Chief Scientist Name Role Phone Hiram Monge Primary Care Provider Amy Abrams Unavailable [phone] Kenia Saez Unavailable [phone] Allergies Allergen (clinical drug ingredient) Drug/Non Drug [...] Type 2 diabetes mellitus with peripheral angiopathy (438295604) Type 2 diabetes mellitus with diabetic peripheral angiopathy without gangrene (E11.51) Active confirmed Problem Bilateral atherosclerosis of arteries of lower limbs (52893337407107903 ) Atherosclerosis of [place] artery of both lower extremities, with unspecified presence of clinical manifestation (I70.203) Active confirmed Vital Signs Blood pressure diastolic 60 mm Hg 10/19/2024 Height 5 ft 10 in in 10/19/2024 Blood pressure systolic 102 mm Hg 10/19/2024 Weight 195 lbs 10/19/2024 BMI 27.98 kg/m2 10/19/2024 Encounters Encounter Location Date Provider [facility] [address] [place] [address] 02/06/2024 Amy Perica Type 2 diabetes mellitus with diabetic peripheral angiopathy without gangrene E11.51 ; Atherosclerosis of [place] artery of both lower extremities, with unspecified presence of clinical manifestation I70.203 ; Pain in toe of left foot M79.675 ; Pain in toe of right foot M79.674 and Tinea unguium B35.[address] [address] 07/16/2024 Amy Marshall Type 2 diabetes mellitus with diabetic peripheral angiopathy without gangrene E11.51 ; Atherosclerosis of [place] artery of both lower extremities, with unspecified presence of clinical manifestation I70.203 ; Pain in toe of left foot M79.675 ; Pain in toe of right foot M79.674 and Tinea unguium B35.[address] [address] 10/19/2024 Amy Marshall Type 2 diabetes mellitus with diabetic peripheral angiopathy without gangrene E11.51 ; Ingrown nail L60.0 ; Atherosclerosis of [place] artery of both lower extremities, with unspecified presence of clinical manifestation I70.203 ; Pain in toe of left foot M79.675 ; Pain in toe of right foot M79.674 and Tinea unguium B35.[address] [address] 05/12/2024 Amy Marshall [address] [address] 10/15/2024 Amy Marshall Assessments Encounter Date Diagnosis [...] nail (ICD-10 - L60.0) 10/19/2024 Atherosclerosis of [place] artery of both lower extremities, with unspecified presence of clinical manifestation (ICD-10 - I70.203) 07/16/2024 Atherosclerosis of [place] artery of both lower extremities, with unspecified presence of clinical manifestation (ICD-10 - I70.203) 02/06/2024 Atherosclerosis of [place] artery of both lower extremities, with unspecified [...] Provider Name:Amy galindo, 01/21/2025 09:15:00 AM, [address] [place], [address], Insurance Providers Payer Name Payer Address Payer Phone Subscriber Number Group Number Insured Name Patient Relationship to Insured Coverage Start Date Coverage End Date Medicare National [employer]t [employer] [address] [facility] [address] [phone] [id number] George Arshad Self - patient is the insured [facility] [address] [place], [place] [address] [id number] JeancarlosGeorge Self - patient is the insured Medical (General) History Medical History History ICD Code Back,Hip,and Knee pain Diabetic Heart disease Measles Mumps Chicken pox Surgical History Surgery Date(Month/Year) hernia Cardiac Catherization 10/2023 Hospitalization History Reason Date(Month/Year) [facility]- Tachycardia 04/2020
== END 2024-12-29 09:56 | disposition home or self-care (01) ==
LOC: HO.HKA 09:37
PROVIDERS: PCP Internal Medicine; Visit Provider Internal Medicine Nephrology
DX: I10 Essential (primary) hypertension (principal); N18.31 Chronic kidney disease, stage 3a; N20.0 Calculus of kidney
CPT/HCPCS: 99214

== ENCOUNTER → 2024-12-29 09:33 | Outpatient (BNVA) | payer MEDICARE, OTHER, SELFPAY | PROVIDERS: PCP Internal Medicine; Visit Provider Internal Medicine Nephrology | DX: I10 Essential (primary) hypertension (principal); N18.31 Chronic kidney disease, stage 3a; N20.0 Calculus of kidney | CPT/HCPCS: 99212 ==

== ENCOUNTER 2025-03-26 07:10 | Outpatient (REF) | payer MEDICARE, OTHER, SELFPAY ==
--- OUTSIDE RECORDS SUMMARY | 2025-03-26 07:13 | XMS_ITS | Clinical Summary ---
Author Organization [facility] Address [address] [place] [address] Phone Care Team Providers Care Vest Finisher Name Role Phone Hiram Monge MD Primary Care Provider [phone] Allergies Active Allergy Reactions Criticality Noted Date [...] patient's age to complete this topic Insurance [facility] Medicare [facility] Medicare Care Teams Vest Finisher Relationship Specialty Start Date End Date Hiram Monge MD [address] [place], [place] PCP - General 05/01/20
[2025-03-26 07:42] LABS: MANUAL DIFF FLAG NO
[2025-03-26 07:57] LABS: Hematocrit 49.2 % (42.0-52.0); Hemoglobin 16.7 g/dl (14.0-18.0); Imm Gran Abs Auto 0.02 X10*3/uL (0.00-0.03); Imm Gran Pct Auto 0.3 % (0.0-0.4); Lymphocytes Absolute Auto 1.2 X10*3/uL (1.2-4.9); Mean Corpuscular HGB Conc 33.9 g/dl (31.0-36.0); Mean Corpuscular Hemoglobin 32.7 pg (27.0-33.0); Mean Corpuscular Volume 96.5 fL (80.0-98.0); NRBC Abs Auto 0.000 X10*3/uL (0.0-0.012); NRBC Pct Auto 0.0 /100WBC (0.0-0.2); Platelet Count 109 X10*3/uL (160-400); Red Blood Count 5.10 X10*6/uL (4.60-5.80); White Blood Count 6.0 X10*3/uL (4.8-10.8)
[2025-03-26 08:31] LABS: Alanine Aminotransferase 38 U/L (0-40); Albumin Level 4.3 g/dL (3.5-5.0); Alkaline Phosphatase 75 U/L (39-117); Anion Gap 13 (12-20); Aspartate Amino Transferase 32 U/L (5-37); Blood Urea Nitrogen 20 mg/dL (9-16); Calcium 9.5 mg/dL (8.4-10.2); Carbon Dioxide 27 mmol/L (22-29); Chloride 109 mmol/L (96-108); Estimated Glomerular Filt Rate 53; Potassium 4.7 mmol/L (3.3-5.1); Sodium 144 mmol/L (135-145); Total Protein 6.9 g/dL (6.5-8.0)
[2025-03-26 08:53] LABS: Microalbum/Creatinine Ratio Ur 6.5 ug/mg cr (<30)
[2025-03-26 09:16] LABS: Free T4 (Free Thyroxine) 1.00 ng/dL (0.71-1.85); Thyroid Stimulating Hormone 1.21 uIU/mL (0.32-4.0)
[2025-03-26 09:21] LABS: Folate 14.3 ng/mL (> or = 4.0); Vitamin B12 465 pg/mL (200-900)
== END 2025-03-26 07:11 | disposition home or self-care (01) ==
LOC: HO.LAB 07:10
PROVIDERS: PCP Internal Medicine; Visit Provider Internal Medicine
DX: E11.65 Type 2 diabetes mellitus with hyperglycemia (principal)
CPT/HCPCS: 36415; 80053; 82043; 82306; 82570; 82607; 82746; 83036; 84439; 84443; 85025